=== PATIENT | female | born 1960 | race Hispanic/Latino ===

== ENCOUNTER 2017-09-12 05:57 | Emergency (ER) | payer BC ==
[2017-09-12 06:02] VITALS: BMI 38.0
[2017-09-12 06:12] VITALS: RESP 18; TEMP 98
[2017-09-12] MEDS ORDERED: Sodium Chloride 0.9% 1,000 ML IV STA (06:12)
--- NOTE | 2017-09-12 06:16 | ED PDOC ---
Arrival/HPI - General Chief Complaint: Back Pain Time Seen by Provider: 09/12/17 06:00 Historian: Patient - History of Present Illness Narrative History of Present Illness (Text): 09/12/17 06:13 57 yo female h/o HTN and Kidney Stones, presents to the ED c/o left flank pain since 3 am. Pain is achy in nature and radiates to her left upper to mid abdomen. Some nausea. No vomiting. No diarrhea. No fever, chills or bodyaches. No urinary symptoms such as dysuria, hematura, frequency or urgency. No trauma. Pain is not worsened with movement. No lightheadedness or dizziness. PMD: Dr. Craig. Past Medical History - Provider Review Nursing Documentation Reviewed: Yes - Infectious Disease Hx of Infectious Diseases: None - Tetanus Immunization Tetanus Immunization: Unknown - Cardiac Hx Hypertension: Yes - Neurological Hx Paralysis: No - Hematological/Oncological Hx Blood Transfusions: No Hx Blood Transfusion Reaction: No - Musculoskeletal/Rheumatological Hx Musculoskeletal Disorders: No - Psychiatric Hx Emotional Abuse: No Hx Physical Abuse: No Hx Substance Use: No - Anesthesia Hx Anesthesia Reactions: No Hx Malignant Hyperthermia: No - Suicidal Assessment Feels Threatened In Home Enviroment: No Family/Social History - Physician Review Nursing Documentation Reviewed: Yes Family/Social History: No Known Family HX Hx Alcohol Use: Yes (SOCIAL) Hx Substance Use: No Hx Substance Use Treatment: No Allergies/Home Meds Allergies/Adverse Reactions: Allergies Penicillins Allergy (Verified 09/12/17 06:02) ANAPHYLAXIS Home Medications: Home Meds Medication Instructions Recorded Confirmed Rosuvastatin Calcium [Crestor] 10 mg PO DAILY 06/05/12 09/12/17 Glyburide/Metformin HCl 1 tab PO DAILY 05/15/13 09/12/17 [Glyburide/Metformin 2.5 mg-500 mg] Nebivolol [Bystolic] 5 mg PO DAILY 03/30/17 09/12/17 Olmesartan Medoxomil [Benicar] 40 mg PO DAILY 03/30/17 09/12/17 Zolpidem Tartrate [Ambien Cr] 12.5 mg PO HS 03/30/17 09/12/17 Review of Systems - Physician Review All systems were reviewed & negative as marked: Yes - Review of Systems Constitutional: Normal Eyes: Normal ENT: Normal Respiratory: Normal Cardiovascular: Normal Gastrointestinal: Abdominal Pain, Nausea. absent: Constipation, Diarrhea, Vomiting Genitourinary Female: Normal Musculoskeletal: Back Pain. absent: Neck Pain Skin: Normal Neurological: Normal Endocrine: Normal Hemo/Lymphatic: Normal Psychiatric: Normal Physical Exam Vital Signs Reviewed: Yes Vital Signs Temp Pulse Resp BP Pulse Ox 09/12/17 06:11 98.0 F 77 18 166/87 H 97 Temperature: Afebrile Blood Pressure: Hypertensive Pulse: Regular Respiratory Rate: Normal Appearance: Positive for: Well-Appearing, Non-Toxic, Comfortable Pain Distress: None Mental Status: Positive for: Alert and Oriented X 3 - Systems Exam Head: Present: Atraumatic, Normocephalic Pupils: Present: PERRL Extroacular Muscles: Present: EOMI Conjunctiva: Present: Normal Mouth: Present: Moist Mucous Membranes Neck: Present: Normal Range of Motion Respiratory/Chest: Present: Clear to Auscultation, Good Air Exchange. No: Respiratory Distress, Accessory Muscle Use Cardiovascular: Present: Regular Rate and Rhythm, Normal S1, S2. No: Murmurs Abdomen: Present: Tenderness (LUQ tenderness), Guarding. No: Distention, Peritoneal Signs, Rebound Back: Present: CVA Tenderness (left) Upper Extremity: Present: Normal Inspection. No: Cyanosis, Edema Lower Extremity: Present: Normal Inspection. No: Edema Neurological: Present: GCS=15, CN II-XII Intact, Speech Normal Skin: Present: Warm, Dry, Normal Color. No: Rashes Psychiatric: Present: Alert, Oriented x 3, Normal Insight, Normal Concentration Medical Decision Making ED Course and Treatment: 09/12/17 06:17 57 yo female with left flank pain r/o Kidney Stone r/o Pancreatitis -- Labs -- Toradol IV, Tylenol -- NS IVF -- CT abd/pelv -- Reevaluate and disposition 09/12/17 7:00 Case signed out to Dr. Freedman to f/u CT, UA, labs, reevaluate and disposition. - Lab Interpretations Lab Results: 09/12/17 06:20 Lab Results 09/12/17 06:20: Sodium 142, Potassium 4.9, Chloride 103, Carbon Dioxide 25, Anion Gap 19, BUN 20, Creatinine 0.8, Est GFR ( Amer) > 60, Est GFR (Non- Af Amer) > 60, Random Glucose 203 H, Calcium 9.0, Magnesium 1.7, Total Bilirubin 0.4, AST 29, ALT 36, Alkaline Phosphatase 83, Total Protein 7.3, Albumin 4.3, Globulin 2.9, Albumin/Globulin Ratio 1.5, Lipase 210 - RAD Interpretation Radiology Orders: 09/12/17 06:12 ABD & PELVIS W/O PO OR IV CONT [CT] Stat - Medication Orders Current Medication Orders: Sodium Chloride (Sodium Chloride 0.9%) 1,000 mls @ 999 mls/hr IV .Q1H1M STA Stop: 09/12/17 07:12 Last Admin: 09/12/17 06:35 Dose: 999 mls/hr eMAR Start Stop Document 09/12/17 06:35 JOL (Rec: 09/12/17 06:35 [id number] Intravenous Solution Start Date 09/12/17 Start Time 06:35 End Date 09/12/17 End time 07:36 Total Infusion Time 61 Discontinued Medications Acetaminophen (Tylenol 325mg Tab) 975 mg PO STAT STA Stop: 09/12/17 06:13 Last Admin: 09/12/17 06:35 Dose: 975 mg [facility] Pain/Vitals Document 09/12/17 06:35 JOL (Rec: 09/12/17 06:36 [facility] [id number]) Pain Reassessment Is This A Pain ReAssessment? No Sleep Is patient sleeping during reassessment? No Presence of Pain Presence of Pain Yes Pain Scale Used Pain Scale Used Numeric Location Left, Right or Bilateral Bilateral Upper or Lower Lower Pain Location Body Site Back Ketorolac Tromethamine (Toradol) 30 mg IVP STAT STA Stop: 09/12/17 06:13 Last Admin: 09/12/17 06:35 Dose: 30 mg MAR Pain Assessment Document 09/12/17 06:35 JOL (Rec: 09/12/17 06:35 [facility] [id number]) Pain Reassessment Is this a pain reassessment? No Sleep Is patient sleeping during reassessment? No Presence of Pain Presence of Pain Yes Pain Scale Used Pain Scale Used Numeric Location Upper or Lower Lower Pain Location Body Site Back Description Intensity of Pain at present 8 Pain Behavior Restlessness Facial Grimacing Aggravating Factors ADL's Changing Position IVP Administration Document 09/12/17 06:35 JOL (Rec: 09/12/17 06:35 [id number]) Charges for Administration # of IVP Administrations 1 Ondansetron HCl (Zofran Inj) 4 mg IVP STAT STA Stop: 09/12/17 06:13 Last Admin: 09/12/17 06:36 Dose: 4 mg IVP Administration Document 09/12/17 06:36 JO (Rec: 09/12/17 06:36 [id number]) Charges for Administration # of IVP Administrations 1 Disposition/Present on Arrival - Present on Arrival Any Indicators Present on Arrival: No History of DVT/PE: No History of Uncontrolled Diabetes: No Urinary Catheter: No History of Decub. Ulcer: No History Surgical Site Infection Following: None - Disposition Have Diagnosis and Disposition been Completed?: No Diagnosis: Flank pain Disposition Time: :18 Condition: FAIR Forms: [employer] (Nigerian)
[2017-09-12 06:40] LABS: BASO # 0.03 K/mm3 (0.0-2.0); BASO % 0.5 % (0.0-3.0); EOS # 0.1 (0.0-0.7); EOS % 1.4 % (1.5-5.0); GRAN # 4.04 (1.4-6.5); GRAN % 60.9 % (50.0-68.0); LYMPH % 30.1 % (22.0-35.0); MEAN CELL VOLUME 74.7 fl (80.0-105.0); MEAN CORPUSCULAR HEMOGLOBIN 23.8 pg (25.0-35.0); MEAN CORPUSCULAR HGB CONC 31.8 g/dl (31.0-37.0); MEAN PLATELET VOLUME 9.6 fl (7.0-11.0); MONO # 0.5 (0.1-0.6); MONO % 7.1 % (1.0-6.0); RBC 5.05 10^6/uL (3.5-6.1); RED CELL DISTRIBUTION WIDTH 15.2 % (11.5-14.5); WHITE BLOOD COUNT 6.6 10^3/ul (4.5-11.0)
[2017-09-12 06:48] LABS: ALB/GLOB RATIO 1.5 (1.1-1.8); ALBUMIN 4.3 g/dL (3.0-4.8); ALT/SGPT 36 U/L (7-56); AST/SGOT 29 U/L (14-36); BLOOD UREA NITROGEN 20 mg/dL (7-21); GFR AFRICAN-AMERICAN > 60; GFR NON-AFRICAN AMERICAN > 60; LIPASE 210 U/L (23-300)
--- NOTE | 2017-09-12 07:14 | ED PDOC ---
Physical Exam Vital Signs Temp Pulse Resp BP Pulse Ox 09/12/17 06:11 98.0 F 77 18 166/87 H 97 Medical Decision Making ED Course and Treatment: 09/12/17 07:11 Patient endorsed to me by Dr. Chow. Pending CT results. CT Abdomen and Pelvis Without Intravenous Contrast: Creator : MIGUEL RUIZ IMPRESSION: 1. There is left perinephric inflammatory change with moderate left hydroureteronephrosis and a 3-4 mm left proximal ureteral stone seen on image 86 series 3 representing acute obstructive uropathy. No UTI. Discharged home, f/u Dr. Guevara, return to ED for worsening pain, vomiting, fever , or any other problem. - Lab Interpretations Lab Results: 09/12/17 06:20 09/12/17 06:20 Lab Results 09/12/17 06:20: Sodium 142, Potassium 4.9, Chloride 103, Carbon Dioxide 25, Anion Gap 19, BUN 20, Creatinine 0.8, Est GFR ( Amer) > 60, Est GFR (Non- Af Amer) > 60, Random Glucose 203 H, Calcium 9.0, Magnesium 1.7, Total Bilirubin 0.4, AST 29, ALT 36, Alkaline Phosphatase 83, Total Protein 7.3, Albumin 4.3, Globulin 2.9, Albumin/Globulin Ratio 1.5, Lipase 210 09/12/17 06:20: WBC 6.6, RBC 5.05, Hgb 12.0, Hct 37.7, MCV 74.7 L, MCH 23.8 L, MCHC 31.8, RDW 15.2 H, Plt Count 302, MPV 9.6, Gran % 60.9, Lymph % (Auto) 30.1 , [place] % (Auto) 7.1 H, Eos % (Auto) 1.4 L, Baso % (Auto) 0.5, Gran # 4.04, Lymph # (Auto) 2.0, [place] # (Auto) 0.5, Eos # (Auto) 0.1, Baso # (Auto) 0.03 09/12/17 06:12: Urine Color Yellow, Urine Appearance Sl cloudy, Urine pH 5.5, Ur Specific [place] >= 1.030, Urine Protein Trace H, Urine Glucose (UA) Negative , Urine Ketones Negative, Urine Blood Large H, Urine Nitrate Negative, Urine Bilirubin Negative, Urine Urobilinogen 0.2, Ur Leukocyte Esterase Negative, Urine RBC 20 - 25, Urine WBC 1 - 3, Ur Epithelial Cells Many, Amorphous Sediment Few, Urine Bacteria Many, Fine Granular Casts 0 - 2, Urine Other Uyeast - RAD Interpretation Radiology Orders: 09/12/17 06:12 ABD & PELVIS W/O PO OR IV CONT [CT] Stat - Medication Orders Current Medication Orders: Discontinued Medications Acetaminophen (Tylenol 325mg Tab) 975 mg PO STAT STA Stop: 09/12/17 06:13 Last Admin: 09/12/17 06:35 Dose: 975 mg MAR Pain/Vitals Document 09/12/17 06:35 JOL (Rec: 09/12/17 06:36 [id number] Pain Reassessment Is This A Pain ReAssessment? No Sleep Is patient sleeping during reassessment? No Presence of Pain Presence of Pain Yes Pain Scale Used Pain Scale Used Numeric Location Left, Right or Bilateral Bilateral Upper or Lower Lower Pain Location Body Site Back Sodium Chloride (Sodium Chloride 0.9%) 1,000 mls @ 999 mls/hr IV .Q1H1M STA Stop: 09/12/17 07:12 Last Admin: 09/12/17 06:35 Dose: 999 mls/hr eMAR Start Stop Document 09/12/17 06:35 JOL (Rec: 09/12/17 06:35 [id number]) Intravenous Solution Start Date 09/12/17 Start Time 06:35 End Date 09/12/17 End time 07:36 Total Infusion Time 61 Ketorolac Tromethamine (Toradol) 30 mg IVP STAT STA Stop: 09/12/17 06:13 Last Admin: 09/12/17 06:35 Dose: 30 mg MAR Pain Assessment Document 09/12/17 06:35 JOL (Rec: 09/12/17 06:35 [id number]) Pain Reassessment Is this a pain reassessment? No Sleep Is patient sleeping during reassessment? No Presence of Pain Presence of Pain Yes Pain Scale Used Pain Scale Used Numeric Location Upper or Lower Lower Pain Location Body Site Back Description Intensity of Pain at present 8 Pain Behavior Restlessness Facial Grimacing Aggravating Factors ADL's Changing Position IVP Administration Document 09/12/17 06:35 JOL (Rec: 09/12/17 06:35 [facility]-[id number]) Charges for Administration # of IVP Administrations 1 Ondansetron HCl (Zofran Inj) 4 mg IVP STAT STA Stop: 09/12/17 06:13 Last Admin: 09/12/17 06:36 Dose: 4 mg IVP Administration Document 09/12/17 06:36 JOL (Rec: 09/12/17 06:36 [id number]) Charges for Administration # of IVP Administrations 1 Tamsulosin HCl (Flomax) 0.4 mg PO STAT STA Stop: 09/12/17 07:52 Last Admin: 09/12/17 08:00 Dose: 0.4 mg - Scribe Statement The provider has reviewed the documentation as recorded by the Frantzibe Justin Lazo Provider Scribe Attestation: All medical record entries made by the Scribe were at my direction and personally dictated by me. I have reviewed the chart and agree that the record accurately reflects my personal performance of the history, physical exam, medical decision making, and the department course for this patient. I have also personally directed, reviewed, and agree with the discharge instructions and disposition. Disposition/Present on Arrival - Present on Arrival Any Indicators Present on Arrival: No History of DVT/PE: No History of Uncontrolled Diabetes: No Urinary Catheter: No History of Decub. Ulcer: No History Surgical Site Infection Following: None - Disposition Have Diagnosis and Disposition been Completed?: Yes Diagnosis: Nephrolithiasis Disposition Time: 08:15 Patient Plan: Discharge Patient Problems: Current Active Problems Problem Status Onset Flank pain Acute Condition: STABLE Discharge Instructions (ExitCare): Kidney Stones in Adults Prescriptions: Acetaminophen [Tylenol 325mg tab] 2 tab PO Q4H #30 tab Famotidine [Pepcid] 1 tab PO BID #14 tab Ibuprofen [Motrin] 600 mg PO Q6 #25 tab Ondansetron ODT [Zofran ODT] 4 mg PO Q8 #12 odt Tamsulosin [Flomax] 0.4 mg PO DAILY #5 cap Referrals: Piero Craig MD [Primary Care Provider] - Follow up with primary Richard Guevara MD [Staff Provider] - Follow up with primary Forms: [employer] (Vietnamese)
--- NOTE | 2017-09-12 07:49 | CT ---
EXAM: CT Abdomen and Pelvis Without Intravenous Contrast CLINICAL HISTORY: 57 years old, female; Signs and symptoms; Other: Left flank pain; Prior surgery; Surgery type: Gastric bypass; Additional info: Left flank pain R/O kidney stone TECHNIQUE: Axial computed tomography images of the abdomen and pelvis without intravenous contrast. All CT scans at this facility use one or more dose reduction techniques, viz.: automated exposure control; ma/kV adjustment per patient size (including targeted exams where dose is matched to indication; i.e. head); or iterative reconstruction technique. 459 images are submitted. Axial images are submitted in soft tissue and lung windows. Coronal reformatted images were created and reviewed. Axial reformatted images were created and reviewed. COMPARISON: CT - ABD PELVIS PO IV CONTRAST 2017-06-11 10:03 FINDINGS: Limitations: Absence of IV contrast decreases sensitivity for detecting vascular and visceral injury and abnormality. Lung bases: There is bibasilar atelectasis. ABDOMEN: Liver: Unremarkable. Gallbladder and bile ducts: Cholecystectomy. Pancreas: Unremarkable. No ductal dilation. Spleen: Unremarkable. No splenomegaly. Adrenals: Unremarkable. No mass. Kidneys and ureters: There is left perinephric inflammatory change with moderate left hydroureteronephrosis and a 3-4 mm left proximal ureteral stone seen on image 86 series 3 representing acute obstructive uropathy. Faint densities in the medullary regions of both kidneys are somewhat nonspecific, perhaps reflecting dense solute, Doe's plaque, tiny calcifications, or other debris. Nonobstructive punctate left renal stone. Stomach and bowel: There is evidence of gastric surgery with gastrojejunal bypass. Diverticulosis. There are nonspecific fluid filled small bowel loops. These findings can represent ileus versus enteritis versus slow transit versus peristalsis. No obstruction. PELVIS: Appendix: Normal appendix which is suboptimally seen. Bladder: Partially decompressed bladder with bladder wall thickening. Correlation with urinalysis is recommended only if clinical cystitis is suspected. Reproductive: Hysterectomy. ABDOMEN and PELVIS: Intraperitoneal space: Unremarkable. No free air. No significant fluid collection. Bones/joints: No acute fracture. No dislocation. Soft tissues: There is a fat-containing umbilical hernia. Vasculature: Pelvic phleboliths. The aorta demonstrates calcified plaque and is mildly ectatic but normal in caliber. Lymph nodes: Unremarkable. No enlarged lymph nodes. IMPRESSION: 1. There is left perinephric inflammatory change with moderate left hydroureteronephrosis and a 3-4 mm left proximal ureteral stone seen on image 86 series 3 representing acute obstructive uropathy.
[2017-09-12 07:56] LABS: PH,URINE 5.5 (4.7-8.0); URINE BILIRUBIN NEGATIVE (NEGATIVE); URINE BLOOD LARGE (NEGATIVE); URINE GLUCOSE (UA) NEGATIVE (NEGATIVE); URINE LEUKOCYTE ESTERASE NEGATIVE Leu/uL (NEGATIVE); URINE PROTEIN TRACE mg/dL (<30 mg/dL); URINE UROBILINOGEN 0.2 E.U./dL (<1 E.U./dL)
[2017-09-12 07:58] LABS: URINE APPEARANCE SL CLOUDY (CLEAR); URINE COLOR YELLOW (YELLOW)
[2017-09-12 08:12] LABS: URINE RBC 20 - 25 /hpf (0-2)
[2017-09-12 08:13] LABS: URINE AMORPHOUS SEDIMENT FEW; URINE BACTERIA MANY (NEG); URINE EPITHELIAL CELLS MANY /hpf (0-5); URINE FINE GRANULAR CAST 0 - 2 /hpf (0-2)
[2017-09-12 08:30] VITALS: BP 128/70; PULSE 72; O2SAT 98
== END 2017-09-12 08:29 | disposition home or self-care (01) ==
LOC: ED 05:57
DX: R10.9 Unspecified abdominal pain (principal); N20.0 Calculus of kidney
CPT/HCPCS: 74176; 80053; 81001; 83690; 83735; 85025; 96361; 96374; 96375; 99284; J1885; J2405; J7030

== ENCOUNTER 2018-06-25 04:26 | Observation (INO) | payer BC ==
[2018-06-25 04:26] VITALS: BMI 38.0
[2018-06-25] MEDS ORDERED: Morphine 2 mg/ml ISec IVP STA ×2 (04:43→06:13)
[2018-06-25] MEDS ORDERED: Sodium Chloride 0.9% 1,000 ML IV STA ×2 (04:43→06:21)
--- NOTE | 2018-06-25 04:45 | ED PDOC ---
Arrival/HPI - General Chief Complaint: Back Pain Time Seen by Provider: 06/25/18 04:31 Historian: Patient - History of Present Illness Narrative History of Present Illness (Text): 06/25/18 04:42 58 year old female, whose past medical history includes kidney stones, diabetes mellitus, and hypertension, presents to the emergency department with complaints of sudden right flank pain since earlier this morning. Patient notes associated nausea and states these symptoms feel similar to previous kidney stones in the past. Patient denies any fevers, chills, headache, dizziness, chest pain, shortness of breath, dyspnea on exertion, cough, abdominal pain, vomiting, diarrhea, neck pain, or any other complaint. Time/Duration: 24 hours Symptom Onset: Gradual Symptom Course: Unchanged Activities at Onset: Light Context: Home Past Medical History - Provider Review Nursing Documentation Reviewed: Yes - Infectious Disease Hx of Infectious Diseases: None - Tetanus Immunization Tetanus Immunization: Unknown - Reproductive Menopause: No - Cardiac Hx Hypertension: Yes - Pulmonary Hx Respiratory Disorders: No - Neurological Hx Paralysis: No - HEENT Hx HEENT Disorder: No - Renal Hx Renal Disorder: Yes Hx Kidney Stones: Yes - Endocrine/Metabolic Hx Endocrine Disorders: Yes Hx Diabetes Mellitus Type 2: Yes - Hematological/Oncological Hx Blood Transfusions: No Hx Blood Transfusion Reaction: No - Musculoskeletal/Rheumatological Hx Musculoskeletal Disorders: No - Psychiatric Hx Emotional Abuse: No Hx Physical Abuse: No Hx Substance Use: No - Anesthesia Hx Anesthesia Reactions: No Hx Malignant Hyperthermia: No - Suicidal Assessment Feels Threatened In Home Enviroment: No Family/Social History - Physician Review Nursing Documentation Reviewed: Yes Family/Social History: No Known Family HX Smoking Status: Never Smoked Hx Alcohol Use: Yes (SOCIAL) Hx Substance Use: No Hx Substance Use Treatment: No Allergies/Home Meds Allergies/Adverse Reactions: Allergies Penicillins Allergy (Verified 06/25/18 04:32) ANAPHYLAXIS Home Medications: Home Meds Medication Instructions Recorded Confirmed Rosuvastatin Calcium [Crestor] 10 mg PO DAILY 06/05/12 06/25/18 Nebivolol [Bystolic] 5 mg PO DAILY 03/30/17 06/25/18 Olmesartan Medoxomil [Benicar] 40 mg PO DAILY 03/30/17 06/25/18 glyBURIDE [Micronase] 5 mg PO BID 06/25/18 06/25/18 Review of Systems - Physician Review All systems were reviewed & negative as marked: Yes - Review of Systems Constitutional: absent: Fevers Respiratory: absent: SOB Cardiovascular: absent: Chest Pain Gastrointestinal: Nausea, Other (right flank pain). absent: Abdominal Pain, Diarrhea, Vomiting Musculoskeletal: absent: Neck Pain Neurological: absent: Headache, Dizziness Physical Exam Vital Signs Reviewed: Yes Vital Signs Temp Pulse Resp BP Pulse Ox 06/25/18 04:35 98.2 F 91 H 18 173/93 H 94 L Temperature: Afebrile Blood Pressure: Hypertensive Pulse: Tachycardic Respiratory Rate: Normal Appearance: Positive for: Well-Appearing, Non-Toxic, Comfortable Pain Distress: Mild Mental Status: Positive for: Alert and Oriented X 3 - Systems Exam Head: Present: Atraumatic, Normocephalic Pupils: Present: PERRL Extroacular Muscles: Present: EOMI Conjunctiva: Present: Normal Mouth: Present: Moist Mucous Membranes Neck: Present: Normal Range of Motion Respiratory/Chest: Present: Clear to Auscultation, Good Air Exchange. No: Respiratory Distress, Accessory Muscle Use Cardiovascular: Present: Regular Rate and Rhythm, Normal S1, S2. No: Murmurs Abdomen: No: Tenderness, Distention, Peritoneal Signs Back: Present: Other (right CVAT tenderness) Upper Extremity: Present: Normal Inspection. No: Cyanosis, Edema Lower Extremity: Present: Normal Inspection. No: Edema Neurological: Present: GCS=15, CN II-XII Intact, Speech Normal Skin: Present: Warm, Dry, Normal Color. No: Rashes Psychiatric: Present: Alert, Oriented x 3, Normal Insight, Normal Concentration Medical Decision Making ED Course and Treatment: 06/25/18 04:46 Impression: 58 year old female who presents to the emergency department complaining of right sided flank pain. Plan: -- CT of abdomen and pelvis -- Labs -- Morphine -- IV fluids -- Toradol -- Zofran -- Urinalysis -- Reassess and disposition Prior Visits: Notes and results from previous visits were reviewed. Progress Notes: 06/25/18 06:25 Patient with intractable pain ,large calculus requiring further treatment in hospital.Case was endorsed to administrative medical director and house physician. - Lab Interpretations I have reviewed the lab results: Yes - RAD Interpretation Tire Setter: Radiologist - Scribe Statement The provider has reviewed the documentation as recorded by the Mary Valero Provider Scribe Attestation: All medical record entries made by the Scribe were at my direction and personally dictated by me. I have reviewed the chart and agree that the record accurately reflects my personal performance of the history, physical exam, medical decision making, and the department course for this patient. I have also personally directed, reviewed, and agree with the discharge instructions and disposition. Disposition/Present on Arrival - Present on Arrival Any Indicators Present on Arrival: No History of DVT/PE: No History of Uncontrolled Diabetes: No Urinary Catheter: No History of Decub. Ulcer: No History Surgical Site Infection Following: None - Disposition Have Diagnosis and Disposition been Completed?: Yes Diagnosis: Renal colic Disposition: HOSPITALIZED Disposition Time: 06:33 Condition: STABLE Forms: [employer] (U[place]ayan)
[2018-06-25 04:56] LABS: HEMOGLOBIN 11.6 g/dL (12.0-16.0); MEAN CELL VOLUME 73.9 fl (80.0-105.0); MEAN CORPUSCULAR HEMOGLOBIN 22.8 pg (25.0-35.0); MEAN CORPUSCULAR HGB CONC 30.9 g/dl (31.0-37.0); MEAN PLATELET VOLUME 9.1 fl (7.0-11.0); RBC 5.09 10^6/uL (3.5-6.1); RED CELL DISTRIBUTION WIDTH 17.2 % (11.5-14.5); WHITE BLOOD COUNT 9.4 10^3/uL (4.5-11.0)
[2018-06-25 05:19] LABS: ALB/GLOB RATIO 1.4 (1.1-1.8); ALBUMIN 4.4 g/dL (3.0-4.8); ALT/SGPT 22 U/L (7-56); AST/SGOT 28 U/L (14-36); BLOOD UREA NITROGEN 21 mg/dL (7-21); CALCIUM 9.3 mg/dL (8.4-10.5); GFR NON-AFRICAN AMERICAN 57
[2018-06-25 06:15] LABS: URINE BILIRUBIN NEGATIVE (NEGATIVE); URINE BLOOD TRACE-LYSED (NEGATIVE); URINE COLOR YELLOW (YELLOW); URINE GLUCOSE (UA) >=1000 mg/dL (NEGATIVE); URINE LEUKOCYTE ESTERASE NEGATIVE Leu/uL (NEGATIVE); URINE PROTEIN NEGATIVE mg/dL (<30 mg/dL); URINE UROBILINOGEN 0.2 E.U./dL (<1 E.U./dL)
[2018-06-25 06:16] LABS: URINE APPEARANCE CLEAR (CLEAR)
[2018-06-25 06:37] LABS: URINE BACTERIA OCC /hpf; URINE RBC 0 - 2 /hpf (0-2)
--- NOTE | 2018-06-25 07:04 | CP.PCM.HP ---
<NelyRemedios - Last Filed: 06/25/18 14:20> History of Present Illness - History of Present Illness History of Present Illness: PGY-[address] Recinos Ms Obrien, 58F, with PMHx Gastric bypass 10 years ago and gastric lap-band September 2017, recurrent kidney stones x 3 (1 spontanous passage in September 2017, 2 required extracorporeal shockwave lithotripsy prior), DM, HTN, PCN allergy c/o R flank pain with nausea. Pt had intermittent R flank recently but last night it was worsen to severe and new-onset vomiting. She vomited 3 times since, non-bloody, non-billous. No change in eating habbit, no urinary frequency, no fever/chills. No recent travels. At baseline, pt walk 15-20 mins a day without chest pain or SOB. She is able to climb 1-2 flights of stairs w/o problem In the ED, VS stables with BP 170/90s due to pain. No leukocytosis. CMP normal except glucose 300. U/A shows WBC 1-3 no alo est, no nitrate CT scan showed obstructing stone of R ureteropelvic junction, 9.6 x 7mm. morphine helped but briefly. She requires morphine 2x2 and zofran. 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 denies drink, smoke, drug All Penicillin Med glyburide 5 bid, crestor 10, olmesartan 40, bystolic 5 PMD = Dr Craig Urol = Dr Guevara Present on Admission - Present on Admission Any Indicators Present on Admission: No Past Patient History - Infectious Disease Hx of Infectious Diseases: None - Tetanus Immunizations Tetanus Immunization: Unknown - Past Social History Smoking Status: Never Smoked - CARDIAC Hx Hypertension: Yes - PULMONARY Hx Respiratory Disorders: No - NEUROLOGICAL Hx Paralysis: No - HEENT Hx HEENT Problems: No - RENAL Hx Chronic Kidney Disease: Yes Hx Kidney Stones: Yes - ENDOCRINE/METABOLIC Hx Endocrine Disorders: Yes Hx Diabetes Mellitus Type 2: Yes - HEMATOLOGICAL/ONCOLOGICAL Hx Blood Transfusions: No Hx Blood Transfusion Reaction: No - MUSCULOSKELETAL/RHEUMATOLOGICAL Hx Musculoskeletal Disorders: No - PSYCHIATRIC Hx Emotional Abuse: No Hx Physical Abuse: No Hx Substance Use: No - SURGICAL HISTORY Hx Surgeries: Yes - ANESTHESIA Hx Anesthesia Reactions: No Hx Malignant Hyperthermia: No Meds Allergies/Adverse Reactions: Allergies Allergy/AdvReac Type Severity Reaction Status Date / Time Penicillins Allergy ANAPHYLAXIS Verified 06/25/18 04:32 Physical Exam - Constitutional Appears: No Acute Distress - Head Exam Head Exam: ATRAUMATIC, NORMAL INSPECTION, NORMOCEPHALIC - Eye Exam Eye Exam: EOMI, Normal appearance, PERRL. absent: Scleral icterus Pupil Exam: NORMAL ACCOMODATION - ENT Exam ENT Exam: Mucous Membranes Moist - Neck Exam Neck exam: Positive for: Normal Inspection - Respiratory Exam Respiratory Exam: Clear to Auscultation Bilateral, NORMAL BREATHING PATTERN. absent: Rales, Rhonchi, Wheezes - Cardiovascular Exam Cardiovascular Exam: REGULAR RHYTHM, +S1, +S2 - GI/Abdominal Exam GI & Abdominal Exam: Normal Bowel Sounds, Soft. absent: Distended, Firm, Guarding, Rigid, Tenderness Additional comments: (+) suprapubic tenderness - Back Exam Back exam: CVA tenderness (R). absent: paraspinal tenderness, rash noted - Neurological Exam Neurological exam: Alert, CN II-XII Intact, Oriented x3 - Psychiatric Exam Psychiatric exam: Normal Affect, Normal Mood - Skin Skin Exam: Dry, Warm Results - Vital Signs Recent Vital Signs: Last Vital Signs Temp 98.2 F 06/25/18 04:35 Pulse 93 H 06/25/18 06:14 Resp 18 06/25/18 06:14 BP 163/82 H 06/25/18 06:14 Pulse Ox 98 06/25/18 06:14 - Labs Result Diagrams: 06/25/18 04:45 06/25/18 04:45 Labs: Laboratory Results - last 24 hr 06/25/18 06/25/18 06/25/18 04:45 04:45 06:05 WBC 9.4 RBC 5.09 Hgb 11.6 L Hct 37.6 MCV 73.9 L MCH 22.8 L MCHC 30.9 L RDW 17.2 H Plt Count 401 MPV 9.1 Sodium 138 Potassium 4.5 Chloride 104 Carbon Dioxide 22 Anion Gap 17 BUN 21 Creatinine 1.0 Est GFR ( Amer) > 60 Est GFR (Non-Af Amer) 57 Random Glucose 330 H* D Calcium 9.3 Total Bilirubin 0.3 AST 28 ALT 22 Alkaline Phosphatase 100 Total Protein 7.7 Albumin 4.4 Globulin 3.3 Albumin/Globulin Ratio 1.4 Urine Color Yellow Urine Appearance Clear Urine pH 6.0 Ur Specific [place] 1.025 Urine Protein Negative Urine Glucose (UA) >=1000 Urine Ketones 15 H Urine Blood Trace-lysed H Urine Nitrate Negative Urine Bilirubin Negative Urine Urobilinogen 0.2 Ur Leukocyte Esterase Negative Urine RBC 0 - 2 Urine WBC 1 - 3 Ur Epithelial Cells 1 - 3 Urine Bacteria Occ Assessment & Plan - Assessment and Plan (Free Text) Plan: Ms Obrien, 58F, with PMHx Gastric bypass 10 years ago and gastric lap-band September 2017, obesity, recurrent kidney stones x 3 (1 spontanous passage in September 2017, 2 required extracorporeal shockwave lithotripsy prior), DM, HTN, PCN allergy c/o R flank pain with nausea. CT scan showed obstructing stone of R ureteropelvic junction, 9.6 x 7mm with moderate R hydronephrosis. R ureteropelvic junction, 9.6 x 7mm Hx recurrent kidney stones x 3 - zofran prn, morphine 1q3 prn - Hold antibiotics pending clinical course - EKG/CXR - NPO, NS@100, strain urine moderate R hydronephrosis - chronic vs acute?? 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 Should follow up outpatient PVX-SCD. Low risk for GI stress ulcer Dispo planning: May be d.c in 24-48 hrs s/r/d/w Dr Recinos <Shauna Recinos - Last Filed: 06/25/18 16:41> Results - Vital Signs Recent Vital Signs: Last Vital Signs Temp 98.2 F 06/25/18 14:00 Pulse 84 06/25/18 14:00 Resp 18 06/25/18 14:00 BP 125/78 06/25/18 14:00 Pulse Ox 95 06/25/18 14:00 - Labs Result Diagrams: 06/25/18 04:45 06/25/18 04:45 Labs: Laboratory Results - last 24 hr 06/25/18 06/25/18 06/25/18 04:45 04:45 06:05 WBC 9.4 RBC 5.09 Hgb 11.6 L Hct 37.6 MCV 73.9 L MCH 22.8 L MCHC 30.9 L RDW 17.2 H Plt Count 401 MPV 9.1 Sodium 138 Potassium 4.5 Chloride 104 Carbon Dioxide 22 Anion Gap 17 BUN 21 Creatinine 1.0 Est GFR ( Amer) > 60 Est GFR (Non-Af Amer) 57 POC Glucose (mg/dL) Random Glucose 330 H* D Hemoglobin A1c Calcium 9.3 Total Bilirubin 0.3 AST 28 ALT 22 Alkaline Phosphatase 100 Total Protein 7.7 Albumin 4.4 Globulin 3.3 Albumin/Globulin Ratio 1.4 Urine Color Yellow Urine Appearance Clear Urine pH 6.0 Ur Specific [place] 1.025 Urine Protein Negative Urine Glucose (UA) >=1000 Urine Ketones 15 H Urine Blood Trace-lysed H Urine Nitrate Negative Urine Bilirubin Negative Urine Urobilinogen 0.2 Ur Leukocyte Esterase Negative Urine RBC 0 - 2 Urine WBC 1 - 3 Ur Epithelial Cells 1 - 3 Urine Bacteria Occ 06/25/18 06/25/18 06/25/18 08:00 11:40 16:22 WBC RBC Hgb Hct MCV MCH MCHC RDW Plt Count MPV Sodium Potassium Chloride Carbon Dioxide Anion Gap BUN Creatinine Est GFR ( Amer) Est GFR (Non-Af Amer) POC Glucose (mg/dL) 153 H 130 H Random Glucose Hemoglobin A1c 8.6 H Calcium Total Bilirubin AST ALT Alkaline Phosphatase Total Protein Albumin Globulin Albumin/Globulin Ratio Urine Color Urine Appearance Urine pH Ur Specific [place] Urine Protein Urine Glucose (UA) Urine Ketones Urine Blood Urine Nitrate Urine Bilirubin Urine Urobilinogen Ur Leukocyte Esterase Urine RBC Urine WBC Ur Epithelial Cells Urine Bacteria Attending/Attestation - Attestation I have personally seen and examined this patient.: Yes I have fully participated in the care of the patient.: Yes I have reviewed all pertinent clinical information: Yes Notes (Text): 06/25/18 16:37 58 year old female with past medical history of diabetes, hypertension and kidney stones who presents with complaint of right flank pain; found to have severe right obstructive uropathy with 10 x 7 mm stone at right UP junction with moderate right hydronephrosis on CT scan. Continue with NPO, IVF and analgesics. Urology evaluation is requested. Shauna Recinos MD Hospitalist.
[2018-06-25] MEDS ORDERED: Dextrose 50% SYRINGE Inj (50 ml) IV PRN (07:50)
--- NOTE | 2018-06-25 09:35 | RAD ---
Date of service: 06/25/2018 HISTORY: Preoperative examination COMPARISON: 05/15/2013. TECHNIQUE: Chest PA and lateral FINDINGS: LINES AND TUBES: None. LUNG AND PLEURA: The lungs are well inflated and clear. No pleural effusion or pneumothorax. HEART AND MEDIASTINUM: The heart is not enlarged. There are aortic atherosclerotic calcifications present. The hilar and mediastinal contours are within normal limits. SKELETAL STRUCTURES: The bony structures are within normal limits for the patient's age. VISUALIZED UPPER ABDOMEN: Normal. OTHER FINDINGS: None. IMPRESSION: No active pulmonary disease.
--- NOTE | 2018-06-25 10:05 | CT ---
Date of service: 06/25/2018 PROCEDURE: CT Abdomen and Pelvis without intravenous contrast HISTORY: Right flank pain COMPARISON: 09/12/2017 TECHNIQUE: CT scan of the abdomen and pelvis was performed without administration of intravenous contrast. Oral contrast was not administered. Coronal and sagittal reformatted images were obtained. Radiation dose: Total exam DLP = 1089.87 mGy-cm. This CT exam was performed using one or more of the following dose reduction techniques: Automated exposure control, adjustment of the mA and/or kV according to patient size, and/or use of iterative reconstruction technique. FINDINGS: LOWER THORAX: The visualized lungs are clear. LIVER: Normal in size. No gross lesion or ductal dilatation. GALLBLADDER AND BILE DUCTS: Surgically absent. PANCREAS: Normal in size. No gross lesion or ductal dilatation. SPLEEN: Normal in size. ADRENALS: Normal in size. No discrete nodule. KIDNEYS AND URETERS: There is a 10 x 7 mm stone at the right UP jnction, moderate right hydronephrosis and severe perinephric inflammatory changes with perinephric fluid. There are punctate nonobstructing stones in both kidneys. The left kidney is normal in size. No left hydronephrosis. VASCULATURE: Normal in caliber. No aortic aneurysm. No aortic atherosclerotic calcification or mural plaque present. BOWEL: Evaluation of the bowel is limited in the absence of oral contrast. The small bowel loops are normal in caliber. Scattered colonic diverticulosis without CT evidence for acute diverticulitis. No bowel dilatation or wall thickening. No bowel obstruction. APPENDIX: Normal appendix. PERITONEUM: No free fluid. No free air. LYMPH NODES: No enlarged lymph nodes. BLADDER: Well distended and normal in appearance. REPRODUCTIVE: The uterus is surgically absent. BONES: No acute fracture. Within normal limits for the patient's age. OTHER FINDINGS: None. IMPRESSION: 1. Severe right obstructive uropathy resulting from a 10 x 7 mm stone at the right UP junction. 2. Punctate nonobstructing stones in both kidneys. A preliminary report was provided by [facility].
[2018-06-25] MEDS: Sodium Chloride 0.9% 1,000 ML IV SCH ×2 (10:50→19:29)
[2018-06-25] MEDS: Morphine 2 mg/ml ISec IVP PRN ×2 (12:02→19:56)
[2018-06-25] MEDS: Insulin Reg-LOW-Coverage SC SCH ×3 (12:39→22:02)
--- NOTE | 2018-06-25 17:19 | CARD ---
APPROVED REPORT Date of service: 06/25/2018 EKG Measurement Heart [id number] MD [id number] <Conclusion> Normal sinus rhythm Low voltage QRS Septal infarct, age undetermined Abnormal ECG
[2018-06-26] MEDS: Sodium Chloride 0.9% 1,000 ML IV SCH (04:55)
[2018-06-26] MEDS: Morphine 2 mg/ml ISec IVP PRN (05:56)
[2018-06-26] MEDS: Insulin Reg-LOW-Coverage SC SCH ×4 (08:27→22:06)
[2018-06-26 11:01] LABS: BASO # 0.03 K/mm3 (0.0-2.0); BASO % 0.5 % (0.0-3.0); EOS # 0.1 (0.0-0.7); EOS % 1.1 % (1.5-5.0); LYMPH # 1.5 (1.2-3.4); LYMPH % 25.9 % (22.0-35.0); MEAN CELL VOLUME 75.4 fl (80.0-105.0); MEAN CORPUSCULAR HEMOGLOBIN 22.4 pg (25.0-35.0); MEAN CORPUSCULAR HGB CONC 29.7 g/dl (31.0-37.0); MONO # 0.4 (0.1-0.6); MONO % 6.6 % (1.0-6.0); RBC 4.06 10^6/uL (3.5-6.1); RED CELL DISTRIBUTION WIDTH 17.4 % (11.5-14.5); WHITE BLOOD COUNT 5.6 10^3/uL (4.5-11.0)
[2018-06-26 11:06] LABS: HEMOGLOBIN 9.1 g/dL (12.0-16.0)
[2018-06-26 11:15] LABS: ALB/GLOB RATIO 1.3 (1.1-1.8); ALBUMIN 3.4 g/dL (3.0-4.8); ALT/SGPT 18 U/L (7-56); AST/SGOT 17 U/L (14-36); BLOOD UREA NITROGEN 16 mg/dL (7-21); CALCIUM 8.4 mg/dL (8.4-10.5); GFR NON-AFRICAN AMERICAN > 60
[2018-06-26] MEDS ORDERED: Propofol 10 mg/ml Inj (20 ML) ONE (11:22)
[2018-06-26] MEDS ORDERED: Midazolam 2 MG/2 ML VIAL ONE (11:23)
[2018-06-26] MEDS ORDERED: Iohexol 240 (50 ml) ONE (11:42)
[2018-06-26] MEDS ORDERED: cefTRIAXone (Rocephin) 1 gm Inj ONE (11:44)
[2018-06-26] MEDS ORDERED: Gentamicin 80 mg in 0.9% NS 80 MG/100 ML BAG IVPB ONE (11:57)
--- NOTE | 2018-06-26 14:20 | RAD ---
Date of service: 06/26/2018 PROCEDURE: Fluoroscopy up to 1 hr. HISTORY: RETROGRADE PYELOGRAM / STENT INSERTION (RIGHT) COMPARISON: None TECHNIQUE: Standard protocol for this study/examination. FINDINGS: Total fluoroscopic time (continuous mode) utilized during the procedure 28.0 seconds. Total exam DLP: 13.20 (mGy). IMPRESSION: Less than 1 hr fluoroscopic assistance provided during performance of the procedure.
[2018-06-26] MEDS ORDERED: Oxycodone/Acetaminophen 10/325 mg Tab PO PRN (15:55)
--- NOTE | 2018-06-26 16:37 | CP.PCM.PN ---
<Julisa Kraft - Last Filed: 06/26/18 16:34> Subjective - Date & Time of Evaluation Date of Evaluation: 06/26/18 Time of Evaluation: 16:34 - Subjective Subjective: Julisa Kraft, PGY1 Medicine Progress Note: Pt was seen and examined this PM at bedside. Pt is noted to be having hematuria after stent placement, per urology it is to be expected. Pt states that her pain is improved, and the pain medication is controlling the pain well. Pt had no acute overnight events. Objective - Vital Signs/Intake and Output Vital Signs (last 24 hours): Temp Pulse Resp BP Pulse Ox 98.5 F 78 14 133/68 97 06/26/18 13:16 06/26/18 13:16 06/26/18 13:16 06/26/18 13:16 06/26/18 13:16 Intake and Output: 06/26/18 06/26/18 06:59 18:59 Intake Total 300 100 Output Total 800 Balance -500 100 - Medications Medications: Current Medications Acetaminophen (Tylenol 325mg Tab) 650 mg PO Q4H PRN PRN Reason: Pain, moderate (4-7) Atorvastatin Calcium (Lipitor) 40 mg PO DAILY [facility] Last Admin: 06/26/18 10:27 Dose: Not Given Dextrose (Dextrose 50% Inj) 0 ml IV STAT PRN; Protocol PRN Reason: Hypoglycemia Protocol Docusate Sodium (Colace) 100 mg PO BID [facility] Last Admin: 06/26/18 10:27 Dose: Not Given Sodium Chloride (Sodium Chloride 0.9%) 1,000 mls @ 100 mls/hr IV .Q10H [facility] Last Admin: 06/26/18 04:55 Dose: 100 mls/hr Dextrose (Dextrose 5% In Water 1000 Ml) 1,000 mls @ 0 mls/hr IV .Q0M PRN; Protocol PRN Reason: Hypoglycemia Protocol Insulin Human Regular (Humulin R Low) 0 units SC ACHS [facility]; Protocol Last Admin: 06/26/18 12:29 Dose: Not Given Levofloxacin (Levaquin) 250 mg PO DAILY [facility]; Protocol Stop: 06/28/18 22:01 Losartan Potassium (Cozaar) 100 mg PO DAILY [facility] Last Admin: 06/26/18 10:27 Dose: Not Given Metoprolol Tartrate (Lopressor) 12.5 mg PO BRKDIN [facility] Last Admin: 06/26/18 08:26 Dose: 12.5 mg Ondansetron HCl (Zofran Inj) 4 mg IVP Q4H PRN PRN Reason: Nausea/Vomiting Oxycodone/Acetaminophen (Percocet 10/325 Mg Tab) 1 tab PO Q6H PRN PRN Reason: Pain, severe (8-10) - Labs Labs: 06/26/18 10:50 06/26/18 10:50 - Constitutional Appears: Non-toxic, No Acute Distress - Head Exam Head Exam: ATRAUMATIC, NORMAL INSPECTION, NORMOCEPHALIC - Eye Exam Eye Exam: EOMI, Normal appearance, PERRL - Respiratory Exam Respiratory Exam: Clear to Ausculation Bilateral, NORMAL BREATHING PATTERN. absent: Accessory Muscle Use, Rales, Rhonchi, Wheezes, Respiratory Distress, Stridor - Cardiovascular Exam Cardiovascular Exam: RRR, +S1, +S2. absent: Gallop, Rubs - GI/Abdominal Exam GI & Abdominal Exam: Soft, Normal Bowel Sounds. absent: Firm, Guarding, Rigid, Tenderness - Extremities Exam Extremities Exam: Normal Capillary Refill. absent: Calf Tenderness, Tenderness - Back Exam Back Exam: NORMAL INSPECTION. absent: CVA tenderness (L), CVA tenderness (R) - Neurological Exam Neurological Exam: Alert, Awake, Oriented x3 - Psychiatric Exam Psychiatric exam: Normal Affect, Normal Mood - Skin Skin Exam: Dry, Normal Color, Warm Assessment and Plan - Assessment and Plan (Free Text) Assessment: Ms Obrien, 58F, with PMHx Gastric bypass 10 years ago and gastric lap-band September 2017, obesity, recurrent kidney stones x 3 (1 spontanous passage in September 2017, 2 required extracorporeal shockwave lithotripsy prior), DM, HTN, PCN allergy c/o R flank pain with nausea. CT scan showed obstructing stone of R ureteropelvic junction, 9.6 x 7mm with moderate R hydronephrosis. Pt had stent placement by urology earlier today. Plan: 1) R reteropelvic junction, 9.6 x 7mm s/p stent placement - Pt has noted hx of recurrent kidney stones x 3 - zofran prn, morphine 1q3 prn - Pt given 1 dose of gentamycin in OR - Pt is noted to be having hematuria which per urology is to be expected, pt reassured - Regular diet after procedure 2) Moderate R hydronephrosis - monitor kidney function, strict i/o 3) HTN - convert home meds to low dose metoprolol and ARBS 4) HLD - convert home meds to lipitor 5) DM - check a1c, ISSS-low, Accucheck 6) Obesity - BMI 38 - Regular diet 7) Microcytic anemia likely due to impaired absorption 2/2 Gastric bypass/lap band. - Follow up outpatient PVX-SCD. Low risk for GI stress ulcer Dispo: d/c in AM with follow up for lithotripsy Pt seen and discussed with Dr Grisel Kraft, PGY1 <Shauna Recinos - Last Filed: 06/26/18 16:49> Objective - Vital Signs/Intake and Output Vital Signs (last 24 hours): Temp Pulse Resp BP Pulse Ox 98.5 F 78 14 133/68 97 06/26/18 13:16 06/26/18 13:16 06/26/18 13:16 06/26/18 13:16 06/26/18 13:16 Intake and Output: 06/26/18 06/26/18 06:59 18:59 Intake Total 300 100 Output Total 800 Balance -500 100 - Medications Medications: Current Medications Acetaminophen (Tylenol 325mg Tab) 650 mg PO Q4H PRN PRN Reason: Pain, moderate (4-7) Atorvastatin Calcium (Lipitor) 40 mg PO DAILY [facility] Last Admin: 06/26/18 10:27 Dose: Not Given Dextrose (Dextrose 50% Inj) 0 ml IV STAT PRN; Protocol PRN Reason: Hypoglycemia Protocol Docusate Sodium (Colace) 100 mg PO BID [facility] Last Admin: 06/26/18 10:27 Dose: Not Given Sodium Chloride (Sodium Chloride 0.9%) 1,000 mls @ 100 mls/hr IV .Q10H [facility] Last Admin: 06/26/18 04:55 Dose: 100 mls/hr Dextrose (Dextrose 5% In Water 1000 Ml) 1,000 mls @ 0 mls/hr IV .Q0M PRN; Protocol PRN Reason: Hypoglycemia Protocol Insulin Human Regular (Humulin R Low) 0 units SC ACHS [facility]; Protocol Last Admin: 06/26/18 12:29 Dose: Not Given Levofloxacin (Levaquin) 250 mg PO DAILY [facility]; Protocol Stop: 06/28/18 22:01 Losartan Potassium (Cozaar) 100 mg PO DAILY [facility] Last Admin: 06/26/18 10:27 Dose: Not Given Metoprolol Tartrate (Lopressor) 12.5 mg PO BRKDIN [facility] Last Admin: 06/26/18 08:26 Dose: 12.5 mg Ondansetron HCl (Zofran Inj) 4 mg IVP Q4H PRN PRN Reason: Nausea/Vomiting Oxycodone/Acetaminophen (Percocet 10/325 Mg Tab) 1 tab PO Q6H PRN PRN Reason: Pain, severe (8-10) - Labs Labs: 06/26/18 10:50 06/26/18 10:50 Attending/Attestation - Attestation I have personally seen and examined this patient.: Yes I have fully participated in the care of the patient.: Yes I have reviewed all pertinent clinical information, including history, physical exam and plan: Yes Notes (Text): 06/26/18 16:46 58 year old female with past medical history of diabetes, hypertension and kidney stones who presented with complaint of right flank pain; found to have severe right obstructive uropathy with 10 x 7 mm stone at right UP junction with moderate right hydronephrosis on CT scan. She was started on IVF and analgesics. UCx noted to have GNR and patient is started on antibiotics. Urology evaluation was appreciated and patient underwent cystoscopy with stent placement this afternoon. Noted to have hematuria post procedure which may be expected. Will monitor overnight with d/c planning likely tomorrow. Shauna Recinos MD Hospitalist.
[2018-06-26 22:27] VITALS: RESP 18
[2018-06-27] MEDS: Insulin Reg-LOW-Coverage SC SCH ×2 (08:31→12:08)
[2018-06-27] MEDS ORDERED: levoFLOXacin 750 MG TAB PO SCH (10:00)
[2018-06-27 10:59] LABS: BASO # 0.03 K/mm3 (0.0-2.0); BASO % 0.6 % (0.0-3.0); EOS # 0.1 (0.0-0.7); EOS % 2.1 % (1.5-5.0); HEMOGLOBIN 9.3 g/dL (12.0-16.0); LYMPH # 1.5 (1.2-3.4); LYMPH % 27.3 % (22.0-35.0); MEAN CELL VOLUME 74.9 fl (80.0-105.0); MEAN CORPUSCULAR HEMOGLOBIN 22.4 pg (25.0-35.0); MEAN CORPUSCULAR HGB CONC 29.9 g/dl (31.0-37.0); MEAN PLATELET VOLUME 8.8 fl (7.0-11.0); MONO # 0.3 (0.1-0.6); MONO % 6.2 % (1.0-6.0); RBC 4.15 10^6/uL (3.5-6.1); RED CELL DISTRIBUTION WIDTH 17.2 % (11.5-14.5); WHITE BLOOD COUNT 5.3 10^3/uL (4.5-11.0)
[2018-06-27 15:24] VITALS: BP 150/61; PULSE 76; TEMP 97.6; O2SAT 95
--- NOTE | 2018-06-27 16:07 | CP.PCM.DIS ---
<Julisa Kraft - Last Filed: 06/27/18 16:47> Provider - Provider Date of Admission: 06/25/18 06:31 Attending physician: Shauna Recinos MD Primary care physician: Piero Craig MD Consults: 06/25/18 13:48 Physician Consult Routine Comment: Consulting Provider: Franko Green Consulting Physician: Franko Green Reason for Consult: cystoscopy Time Spent in preparation of Discharge (in minutes): 45 Diagnosis - Discharge Diagnosis (1) Renal colic Status: Acute Hospital Course - Lab Results Lab Results: Micro Results 06/25/18 05:00 Urine Random Urine Culture - Final Escherichia Coli Most Recent Lab Values WBC 5.3 10^3/uL (4.5-11.0) 06/27/18 10:40 RBC 4.15 10^6/uL (3.5-6.1) 06/27/18 10:40 Hgb 9.3 g/dL (12.0-16.0) L 06/27/18 10:40 Hct 31.1 % (36.0-48.0) L 06/27/18 10:40 MCV 74.9 fl (80.0-105.0) L 06/27/18 10:40 MCH 22.4 pg (25.0-35.0) L 06/27/18 10:40 MCHC 29.9 g/dl (31.0-37.0) L 06/27/18 10:40 RDW 17.2 % (11.5-14.5) H 06/27/18 10:40 Plt Count 291 10^3/uL (120.0-450.0) 06/27/18 10:40 MPV 8.8 fl (7.0-11.0) 06/27/18 10:40 Neut % (Auto) 63.8 % (50.0-68.0) 06/27/18 10:40 Lymph % (Auto) 27.3 % (22.0-35.0) 06/27/18 10:40 [place] % (Auto) 6.2 % (1.0-6.0) H 06/27/18 10:40 Eos % (Auto) 2.1 % (1.5-5.0) 06/27/18 10:40 Baso % (Auto) 0.6 % (0.0-3.0) 06/27/18 10:40 Lymph # (Auto) 1.5 (1.2-3.4) 06/27/18 10:40 [place] # (Auto) 0.3 (0.1-0.6) 06/27/18 10:40 Eos # (Auto) 0.1 (0.0-0.7) 06/27/18 10:40 Baso # (Auto) 0.03 K/mm3 (0.0-2.0) 06/27/18 10:40 Absolute Neuts (auto) 3.40 (1.4-6.5) 06/27/18 10:40 Sodium 140 mmol/L (132-148) 06/26/18 10:50 Potassium 4.5 mmol/L (3.6-5.0) 06/26/18 10:50 Chloride 109 mmol/L (98-107) H 06/26/18 10:50 Carbon Dioxide 25 mmol/L (21-33) 06/26/18 10:50 Anion Gap 10 (10-20) 06/26/18 10:50 BUN 16 mg/dL (7-21) 06/26/18 10:50 Creatinine 0.8 mg/dl (0.7-1.2) 06/26/18 10:50 Est GFR ( Amer) > 60 06/26/18 10:50 Est GFR (Non-Af Amer) > 60 06/26/18 10:50 POC Glucose (mg/dL) 206 mg/dL (65-110) H 06/27/18 11:10 Random Glucose 195 mg/dL (70-110) H 06/26/18 10:50 Hemoglobin A1c 8.6 % (4.2-6.5) H 06/25/18 08:00 Calcium 8.4 mg/dL (8.4-10.5) 06/26/18 10:50 Total Bilirubin 0.5 mg/dL (0.2-1.3) 06/26/18 10:50 AST 17 U/L (14-36) 06/26/18 10:50 ALT 18 U/L (7-56) 06/26/18 10:50 Alkaline Phosphatase 82 U/L (38-126) 06/26/18 10:50 Total Protein 6.1 g/dL (5.8-8.3) 06/26/18 10:50 Albumin 3.4 g/dL (3.0-4.8) 06/26/18 10:50 Globulin 2.7 gm/dL 06/26/18 10:50 Albumin/Globulin Ratio 1.3 (1.1-1.8) 06/26/18 10:50 Urine Color Yellow (YELLOW) 06/25/18 06:05 Urine Appearance Clear (CLEAR) 06/25/18 06:05 Urine pH 6.0 (4.7-8.0) 06/25/18 06:05 Ur Specific [place] 1.025 (1.005-1.035) 06/25/18 06:05 Urine Protein Negative mg/dL (<30 mg/dL) 06/25/18 06:05 Urine Glucose (UA) >=1000 mg/dL (NEGATIVE) 06/25/18 06:05 Urine Ketones 15 mg/dL (NEGATIVE) H 06/25/18 06:05 Urine Blood Trace-lysed (NEGATIVE) H 06/25/18 06:05 Urine Nitrate Negative (NEGATIVE) 06/25/18 06:05 Urine Bilirubin Negative (NEGATIVE) 06/25/18 06:05 Urine Urobilinogen 0.2 E.U./dL (<1 E.U./dL) 06/25/18 06:05 Ur Leukocyte Esterase Negative Alo/uL (NEGATIVE) 06/25/18 06:05 Urine RBC 0 - 2 /hpf (0-2) 06/25/18 06:05 Urine WBC 1 - 3 /hpf (0-6) 06/25/18 06:05 Ur Epithelial Cells 1 - 3 /hpf (0-5) 06/25/18 06:05 Urine Bacteria Occ /hpf (NONE) 06/25/18 06:05 - Hospital Course Hospital Course: Upon Admission: Ms Obrien, 58F, with PMHx Gastric bypass 10 years ago and gastric lap-band September 2017, recurrent kidney stones x 3 (1 spontanous passage in September 2017, 2 required extracorporeal shockwave lithotripsy prior), DM, HTN, PCN allergy c/o R flank pain with nausea. Pt had intermittent R flank recently but last night it was worsen to severe and new-onset vomiting. She vomited 3 times since, non-bloody, non-billous. No change in eating habit, no urinary frequency, no fever/chills. No recent travels. At baseline, pt walk 15-20 mins a day without chest pain or SOB. She is able to climb 1-2 flights of stairs w/o problem In the ED, VS stables with BP 170/90s due to pain. No leukocytosis. CMP normal except glucose 300. U/A shows WBC 1-3 no alo est, no nitrate CT scan showed obstructing stone of R ureteropelvic junction, 9.6 x 7mm. morphine helped but briefly. She requires morphine 2x2 and zofran. NS2L Hospital Course: Pt was being worked up for renal colic. CT as noted above showed an obstructing stone at the R ureteropelvic junction with moderate R hydronephrosis. Pt states that she has had this multiple times previously. Urology, Dr. Green, is consulted for the pt and the decision is made to have stent placement for the pt with potential lithotripsy at another facility if needed. Pt expressed agreement with the plan and had the stent placed the next day. Pt was placed NPO and went for stent placement the next day. The next day pt was noted to be growing e.coli in urine cx and was given a dose of gentamycin in OR. Pt after the procedure was noted to have hematuria, which was to be expected and the pt was reassured that this was normal. Pt kept overnight for observation. Overnight the pt had some pain which was relived by pain medication and then in the AM had no issues with pain. Pt also states that her hematuria cleared up after the bout overnight and states that she feels ready for d/c. Urology recommends pt follow up for lithotripsy at some point over the next week. Pt was told of plan for discharge with follow up with her PMD and urologist. Pt expressed understanding and agreement with plan for d/c and states she will be compliant with follow up. All of pts questions and concerns were addressed prior to d/c. Pt was given a script for PO abx for noted infection in urine and due to urologic manipulation. Discharge Exam - Head Exam Head Exam: ATRAUMATIC, NORMAL INSPECTION, NORMOCEPHALIC - Eye Exam Eye Exam: EOMI, Normal appearance, PERRL - Respiratory Exam Respiratory Exam: Clear to PA & Lateral, NORMAL BREATHING PATTERN, UNREMARKABLE. absent: Accessory Muscle Use, Rales, Rhonchi, Wheezes, Respiratory Distress, Stridor - Cardiovascular Exam Cardiovascular Exam: RRR, +S1, +S2. absent: Gallop, Rubs - GI/Abdominal Exam GI & Abdominal Exam: Normal Bowel Sounds, Soft, Unremarkable. absent: Firm, G uarding, Rebound, Rigid, Tenderness - Extremities Exam Extremities exam: normal capillary refill, normal inspection, pedal pulses present - Back Exam Back exam: NORMAL INSPECTION. absent: CVA tenderness (L), CVA tenderness (R) - Neurological Exam Neurological exam: Alert, Oriented x3 - Psychiatric Exam Psychiatric exam: Normal Affect, Normal Mood - Skin Skin Exam: Dry, Normal Color, Warm Discharge Plan - Discharge Medications Prescriptions: Nitrofurantoin Macrocrystal [Nitrofurantoin] 100 mg PO BID 7 Days #14 capsule - Follow Up Plan Condition: STABLE Disposition: HOME/ ROUTINE Instructions: Type 2 Diabetes, High Blood Pressure (DC), Renal Colic (DC), Flu Vaccine Additional Instructions: - Please follow up with your primary care doctor, Dr. Craig within 1 week of discharge for follow up. - Please follow up with Dr Green's office who will call you to schedule the next procedure for your kidney stone. - You were noted to have diabetes as your diabetes marker (hgba1c) was very high at 8.6. It is imperative you eat healthier (reduce your carb intake) and exercise. Please bring this up with Dr Craig when you see him as he might need to adjust your diabetes medications. - If you have any new symptoms please return to the nearest emergency department. Referrals: Piero Craig MD [Primary Care Provider] - Franko Green MD [Staff Provider] - <Shauna Recinos - Last Filed: 06/27/18 17:14> Provider - Provider Date of Admission: 06/25/18 06:31 Attending physician: Shauna Recinos MD Primary care physician: Piero Craig MD Consults: 06/25/18 13:48 Physician Consult Routine Comment: Consulting Provider: Franko Green Consulting Physician: Franko Green Reason for Consult: cystoscopy Hospital Course - Lab Results Lab Results: Micro Results 06/25/18 05:00 Urine Random Urine Culture - Final Escherichia Coli Most Recent Lab Values WBC 5.3 10^3/uL (4.5-11.0) 06/27/18 10:40 RBC 4.15 10^6/uL (3.5-6.1) 06/27/18 10:40 Hgb 9.3 g/dL (12.0-16.0) L 06/27/18 10:40 Hct 31.1 % (36.0-48.0) L 06/27/18 10:40 MCV 74.9 fl (80.0-105.0) L 06/27/18 10:40 MCH 22.4 pg (25.0-35.0) L 06/27/18 10:40 MCHC 29.9 g/dl (31.0-37.0) L 06/27/18 10:40 RDW 17.2 % (11.5-14.5) H 06/27/18 10:40 Plt Count 291 10^3/uL (120.0-450.0) 06/27/18 10:40 MPV 8.8 fl (7.0-11.0) 06/27/18 10:40 Neut % (Auto) 63.8 % (50.0-68.0) 06/27/18 10:40 Lymph % (Auto) 27.3 % (22.0-35.0) 06/27/18 10:40 [place] % (Auto) 6.2 % (1.0-6.0) H 06/27/18 10:40 Eos % (Auto) 2.1 % (1.5-5.0) 06/27/18 10:40 Baso % (Auto) 0.6 % (0.0-3.0) 06/27/18 10:40 Lymph # (Auto) 1.5 (1.2-3.4) 06/27/18 10:40 [place] # (Auto) 0.3 (0.1-0.6) 06/27/18 10:40 Eos # (Auto) 0.1 (0.0-0.7) 06/27/18 10:40 Baso # (Auto) 0.03 K/mm3 (0.0-2.0) 06/27/18 10:40 Absolute Neuts (auto) 3.40 (1.4-6.5) 06/27/18 10:40 Sodium 140 mmol/L (132-148) 06/26/18 10:50 Potassium 4.5 mmol/L (3.6-5.0) 06/26/18 10:50 Chloride 109 mmol/L (98-107) H 06/26/18 10:50 Carbon Dioxide 25 mmol/L (21-33) 06/26/18 10:50 Anion Gap 10 (10-20) 06/26/18 10:50 BUN 16 mg/dL (7-21) 06/26/18 10:50 Creatinine 0.8 mg/dl (0.7-1.2) 06/26/18 10:50 Est GFR ( Amer) > 60 06/26/18 10:50 Est GFR (Non-Af Amer) > 60 06/26/18 10:50 POC Glucose (mg/dL) 135 mg/dL (65-110) H 06/27/18 16:24 Random Glucose 195 mg/dL (70-110) H 06/26/18 10:50 Hemoglobin A1c 8.6 % (4.2-6.5) H 06/25/18 08:00 Calcium 8.4 mg/dL (8.4-10.5) 06/26/18 10:50 Total Bilirubin 0.5 mg/dL (0.2-1.3) 06/26/18 10:50 AST 17 U/L (14-36) 06/26/18 10:50 ALT 18 U/L (7-56) 06/26/18 10:50 Alkaline Phosphatase 82 U/L (38-126) 06/26/18 10:50 Total Protein 6.1 g/dL (5.8-8.3) 06/26/18 10:50 Albumin 3.4 g/dL (3.0-4.8) 06/26/18 10:50 Globulin 2.7 gm/dL 06/26/18 10:50 Albumin/Globulin Ratio 1.3 (1.1-1.8) 06/26/18 10:50 Urine Color Yellow (YELLOW) 06/25/18 06:05 Urine Appearance Clear (CLEAR) 06/25/18 06:05 Urine pH 6.0 (4.7-8.0) 06/25/18 06:05 Ur Specific [place] 1.025 (1.005-1.035) 06/25/18 06:05 Urine Protein Negative mg/dL (<30 mg/dL) 06/25/18 06:05 Urine Glucose (UA) >=1000 mg/dL (NEGATIVE) 06/25/18 06:05 Urine Ketones 15 mg/dL (NEGATIVE) H 06/25/18 06:05 Urine Blood Trace-lysed (NEGATIVE) H 06/25/18 06:05 Urine Nitrate Negative (NEGATIVE) 06/25/18 06:05 Urine Bilirubin Negative (NEGATIVE) 06/25/18 06:05 Urine Urobilinogen 0.2 E.U./dL (<1 E.U./dL) 06/25/18 06:05 Ur Leukocyte Esterase Negative Alo/uL (NEGATIVE) 06/25/18 06:05 Urine RBC 0 - 2 /hpf (0-2) 06/25/18 06:05 Urine WBC 1 - 3 /hpf (0-6) 06/25/18 06:05 Ur Epithelial Cells 1 - 3 /hpf (0-5) 06/25/18 06:05 Urine Bacteria Occ /hpf (NONE) 06/25/18 06:05 Attending/Attestation - Attestation I have personally seen and examined this patient.: Yes I have fully participated in the care of the patient.: Yes I have reviewed all pertinent clinical information, including history, physical exam and plan: Yes Notes (Text): 06/27/18 17:11 58 year old female with past medical history of diabetes, hypertension and kidney stones who presented with complaint of right flank pain. She was found to have severe right obstructive uropathy with 10 x 7 mm stone at right UP junction with moderate right hydronephrosis on CT scan. She was started on IVF and analgesics. She was started on antibiotics for UTI. She was seen by urolog y and underwent cystoscopy with stent placement yesterday. She had post procedure hematuria which improved today. Patient is discharged home to follow up with pmd. Follow up with urology. Continue with antibiotics as prescribed. Shauna Recinos MD Hospitalist.
--- NOTE | 2018-07-01 02:01 | CON ---
DATE: 06/25/2018 UROLOGY CONSULTATION REASON FOR CONSULTATION: Severe flank pain and hydronephrosis. HISTORY OF PRESENT ILLNESS: Ms. Obrien is a very pleasant lady, whom I am just beginning now to meet. She is 58 years old. She presents with severe right flank pain. This is her fourth stone ever. Previously, she had been treated in the following way. She has had shockwave. She has also had spontaneous passage of the stone. She has ongoing severe pain with a fairly proximal stone at UPJ with severe pain. See the plan listed below. We discussed options for treatment. She is under the care of Shauna Recinos MD. The patient has seen Dr. Guevara. We discussed options, see below. The possibility for me just placing a stent and then him completing the treatment versus the possibility of finishing the treatment. Urology is consulted for further plan. PAST MEDICAL HISTORY: As listed on the chart. PAST SURGICAL HISTORY: As listed on the chart. MEDICATIONS: See the chart. ALLERGIES: SEE THE CHART. Now, she sees doctor , who happens to not come here, not listed on the hospital service, but her private doctor is noted. 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 She has older children. Otherwise essentially unremarkable. REVIEW OF SYSTEMS: As listed above, otherwise noncontributory. No weight loss chest pain, or shortness of breath otherwise. In general in reasonably good medical situation. PHYSICAL EXAMINATION: GENERAL: She is a well nourished female in no apparent distress. She is currently resting comfortably in her bed. VITAL SIGNS: Noted. Physical examination is otherwise unremarkable. LABORATORY DATA: See chart. CT scan noted. DIAGNOSES: Severe renal colic. PLAN: At this point, we discussed various options with the patient. The idea of putting a stent in at this point versus the possibility of observing the patient, going through shockwave lithotripsy. She has various issues in terms of timing for the various possibilities for how we treat her. From an Urology standpoint, as follows. We made arrangements for immediate cystoscopy and stent insertion. The patient wants to see if she can pass the stone by herself. Intermittently, she is having pain. So from Urology standpoint, the plan is as follows: 1. IV fluid. 2. Analgesic. 3. Cystoscopy. 4. Stent insertion. 5. Further plans will follow. I discussed with the patient. She has my phone number. We will discuss further plans. For today, we are not going to put her in the OR schedule until she is ready. Further plans will follow Aries Green MD
--- NOTE | 2018-07-01 02:58 | OP ---
PROCEDURE DATE: 06/26/2018 UROLOGY OPERATIVE NOTE PREOPERATIVE DIAGNOSES: Urolithiasis, severe renal colic with right hydronephrosis, hematuria. POSTOPERATIVE DIAGNOSES: Urolithiasis, severe renal colic with right hydronephrosis, hematuria. PROCEDURE: Exam under anesthesia, cystoscopy, right retrograde pyelogram, insertion of right double J stent. COMPLICATIONS: There were no complications. ESTIMATED BLOOD LOSS: Less than 10 mL. UROLOGY OPERATIVE FINDINGS: There was a stone in the stent inserted. It was a good sized stone. We did a picture, there were actually some beautiful pictures I took and saved. They are not easily seen on the district scout executive films (but the patient has reported that she had previously been treated at the [facility], which sounds like a shockwave lithotripsy). So, I will have to investigate this further. We are definitely seeing nice beautiful filling defect on the retrograde confirming that, that it is a stone, and in the end, we have a well-deployed double-J stent. There were no other abnormal findings. INDICATIONS: See history and physical for further details. This is a very pleasant lady with a right renal colic and a stone, hydronephrosis, very proximal. We discussed options. We did cystoscopy, ureteroscopy, laser lithotripsy, discussed cysto, stent insertion, shockwave lithotripsy. At this point, she is here for a cysto and a stent insertion. It is a very proximal stone and now that we did the procedure to get more proximal. Risks and benefits were discussed at length. We planned to proceed. I do want to mention through the addendum at the end, after placing the stent, we are planning for a shockwave lithotripsy for next week. DESCRIPTION OF PROCEDURE: After obtaining informed consent, the patient was placed on the table. Routine monitors were placed. Time-out was called to confirm the patient and positioning. We introduced the cystoscope via urethra, a district scout executive film was performed. It was not easier to identify the stone. I have even the CAT scan with me and even after the fact once I did a retrograde and I know exactly where the stone is and I see the filling defect, I am not absolutely convinced on the district scout executive film (that is suggestive of either a very faint stone or a lot of gas or perhaps a uric acid stone. We will have to evaluate this further. Once we make further progress, but these pictures were saved. Actually, gave them to the patient and a copy for me as well. After obtaining informed consent, the patient was placed on the table. Routine monitors were placed. Time-out was called to confirm the patient and positioning. Ramp Flight Attendant film was performed. We now introduced the cystoscope via the urethra, identified the right ureteral orifice where right retrograde pyelogram was performed. Without abnormalities, we can identify beautiful filling defect representing the stone. We ran the level of the renal pelvis. I put a wire up to the kidney, without difficulty put a double-J stent, passed the point of obstruction and drained the kidney. We did multiple images to confirm this. The patient tolerated it well without complications. The bladder was emptied and cystoscope removed . ADDENDUM The plan will be outpatient shockwave lithotripsy and then further plans will follow. Aries Green MD
--- NOTE | 2018-07-01 09:24 | PN ---
DATE: 06/26/2018 UROLOGY IMMEDIATE POSTOPERATIVE NOTE See the history and physical, consultation and operative note. The patient is in recovery room status post cystoscopy and a stent. She is doing well. Vital signs are within normal limits. Status post stent placement. She feels much better and with almost no side effect so far. The patient has not yet voided. Aries Green MD
== END 2018-06-27 18:04 | disposition home or self-care (01) ==
LOC: ED 04:26 → ERH 06:31 → 5RSO 11:00
PROVIDERS: ADMIT Hospitalist; ATTEND Internal Medicine
DX: N13.2 Hydronephrosis with renal and ureteral calculous obstruction (principal); R31.9 Hematuria, unspecified; I12.9 Hypertensive chronic kidney disease with stage 1 through stage 4 chronic kidney disease, or unspecified chronic kidney disease; N18.9 Chronic kidney disease, unspecified; E11.22 Type 2 diabetes mellitus with diabetic chronic kidney disease; D50.9 Iron deficiency anemia, unspecified; E78.5 Hyperlipidemia, unspecified; E66.9 Obesity, unspecified; Z68.38 Body mass index [BMI] 38.0-38.9, adult; Z98.84 Bariatric surgery status; Z79.84 Long term (current) use of oral hypoglycemic drugs; Z88.0 Allergy status to penicillin
CPT/HCPCS: 36415; 52332; 71046; 74176; 76000; 80053; 81001; 82948; 83036; 85025; 85027; 87086; 87181; 93005; 96374; 96375; 96376; 99285; C1758; C1769; C2625; G0378; J1580; J1885; J2001; J2250; J2270; J2405; J2704; J7030; J7120; Q9966

== ENCOUNTER 2018-07-10 07:01 | Day surgery (SDC) | payer BC ==
[2018-07-09 13:04] VITALS: BMI 39.1
[2018-07-10] MEDS ORDERED: Propofol 10 mg/ml Inj (20 ML) ONE (09:53)
[2018-07-10] MEDS ORDERED: Ciprofloxacin 400mg/200ml D5W 400 MG/200 ML BAG IVPB STA (09:54)
[2018-07-10] MEDS ORDERED: Oxycodone/Acetaminophen 5/325 mg Tab PO PRN (09:55)
[2018-07-10] MEDS ORDERED: Gentamicin 80 mg in 0.9% NS 80 MG/100 ML BAG IVPB ONE (10:09)
[2018-07-10] MEDS ORDERED: HYDROmorphone 0.5 mg/0.5 ml ISec IVP PRN (10:36)
[2018-07-10] MEDS ORDERED: Lactated Ringer's 1,000 ML IV SCH (10:45)
[2018-07-10 11:03] VITALS: O2SAT 98
[2018-07-10 11:30] VITALS: RESP 20; TEMP 98
[2018-07-10 12:09] VITALS: BP 124/59; PULSE 87
--- NOTE | 2018-07-10 12:28 | RAD ---
Date of service: 07/10/2018 PROCEDURE: Retrograde pyelogram HISTORY: N COMPARISON: TECHNIQUE: 13.1 sec of fluoro time. Cumulative dose 4.84 mGy. Fifteen images were submitted FINDINGS: The study shows placement of a right ureteral stent IMPRESSION: As above
--- NOTE | 2018-07-23 13:53 | PN ---
DATE: 07/10/2018 IMMEDIATE UROLOGY POSTOPERATIVE NOTE See the history and physical, see the operative note. The patient is in the recovery room, status post cystoscopy, ureteroscopy, renoscopy. The findings of fat in the urine in the kidney. No big stones are noted. And we because of the procedure stented. Vital signs are noted. There were no complications again see the separately dictated procedure note. Vital signs remains stable. The plan is to discharge home and then further plans will follow. Aries Green MD
--- NOTE | 2018-07-23 15:12 | OP ---
PROCEDURE DATE: 07/10/2018 PREOPERATIVE DIAGNOSES: Urolithiasis, hematuria, hydronephrosis. POSTOPERATIVE DIAGNOSES: Urolithiasis, hematuria, hydronephrosis. PROCEDURE: Cystoscopy, removal of a right double-J stent, right ureteroscopy, right retrograde pyelogram, right renoscopy, and insertion of right double-J stent with dangles. SURGEON: Aries Green MD. ESTIMATED BLOOD LOSS: Less than 10 mL. COMPLICATIONS: There were no complications. INDICATIONS: See history and physical for further details. But in brief, a very pleasant lady, previously she underwent a cysto and stent insertion for a severe renal colic. We then brought her to [place] and we did a shockwave lithotripsy with a very good result, but the patient reports that she never passed any stones. Now that I am doing this procedure and I see in my operative findings basically that there is sand in the kidney and there is still sand. But the patient's stone is suddenly broken at this point. Today, she is brought in for the above procedure. On urology operative findings, saw there was sand in the kidney. No large stones identified. And in fact so much so that we left her because we did the procedure, we left a stent with dangles. See the immediate postoperative note. The plan is to have the patient remove that herself. I left her with dangles so she does not need any more procedures and she is going to remove that tomorrow herself. Again the urology operative findings, bladder mucosa is within normal limits. The kidney is within normal limits. Just the sand is identified. We did a ureteroscopy, renoscopy with a flexible ureteroscope. We did not do any laser today. Just because we had done a retrograde and saw the outline of the kidney, I spent some time looking in the various calyces once the with the stent was dangled. She does not have postop pain. Also would like to mention at this point, this is a repeat of a dictation because as I am going through my notes and preparing my dictation, I am recalling many of the facets to a particular patient. PROCEDURE: After obtaining informed consent, the patient was placed on the table. Routine monitors were placed. Time-out was called to confirm the patient and positioning. Antibiotic prophylaxis was used. We identified the patient. Time-out was called to confirm the patient and positioning. The patient was placed in the lithotomy position. Antibiotic prophylaxis was used. We introduced the cystoscope via the urethra. We identified the old stent. It is actually a little bit encrusted for a relatively used stent. The procedure continued in the following fashion. The was identified and removed. Again, it is a little bit encrusted as noted. We then passed a wire up to the kidney, we removed the double-J stent from the ureteral orifice, put a wire up to the kidney. We went back and put a second wire in. We put the flexible ureteroscope all the way up to the kidney. The entire procedure was done with the camera as well as fluoroscopic imaging. We now went into base of each calyx and inspected carefully. We outlined the kidney with the retrograde pyelogram. In particular, multiple pictures were taken and saved. We identified some stones, but they are really sand, there was just sand sitting there in the bladder. And irrigates nicely and easily. There are too many to do anything and there are too many, too small to do anything more. We spent a while looking. There were no big stones identified in any one of the calyces. At this point, the wire was up in the kidney, put a double-J stent in. We drained the kidney, irrigated the bladder. The patient tolerated the procedure without complication. I put a double-J stent with dangles, tucked the dangles away in the vagina. The patient tolerated the procedure without any complications. Exam under anesthesia revealed normal external genitalia. No pelvic or rectal abnormalities. The patient tolerated the procedure without any complications. ADDENDUM: I discussed with the patient the plan will be for her to remove the stent at about 24 hours. If it bothers her too much, we will even plan to do it earlier. Aries Green MD
== END 2018-07-10 12:20 | disposition home or self-care (01) ==
LOC: SDS 07:01
PROVIDERS: ATTEND Urology
DX: N13.2 Hydronephrosis with renal and ureteral calculous obstruction (principal)
CPT/HCPCS: 52332; 52351; 74420; 88300; C2625; J0744; J1170; J1580; J1885; J2001; J2704; J3010; J7120 ×2

== ENCOUNTER 2018-07-12 12:00 | Inpatient (IN) | payer BC ==
[2018-07-12 12:14] VITALS: BMI 38.4
[2018-07-12] MEDS ORDERED: Sodium Chloride 0.9% 1,000 ML IV STA (12:16)
--- NOTE | 2018-07-12 12:22 | ED PDOC ---
Arrival/HPI - General Time Seen by Provider: 07/12/18 12:11 Historian: Patient, Family - History of Present Illness Narrative History of Present Illness (Text): 07/12/18 12:16 A 58 year old female, whose past medical history includes kidney stones, presen ts to the emergency department complaining of right flank pain since earlier this week. Patient reports she had a lithotripsy procedure done last week by Dr. Pineda in [place]. Patient notes this week she began experiencing right flank pain with associated subjective fever, dizziness, poor appetite from nausea, urinary urgency and an inability to urinate. Patient denies any hematuria or any other complaints. PMD: Dr. Craig Time/Duration: Other (a few days) Symptom Onset: Gradual Symptom Course: Unchanged Severity Level: 4 Activities at Onset: Light Context: Home Past Medical History - Provider Review Nursing Documentation Reviewed: Yes - Infectious Disease Hx of Infectious Diseases: None - Tetanus Immunization Tetanus Immunization: Unknown - Cardiac Hx Pacemaker: No - Pulmonary Hx Respiratory Disorders: No Hx Asthma: No Hx Bronchitis: No Hx Chronic Obstructive Pulmonary Disease (COPD): No Hx Emphysema: No Hx Pneumonia: No Hx Respiratory Aspiration: No Hx Respiratory Tract Infection: No Hx Sleep Apnea: No Hx Tuberculosis: No - Neurological Hx Paralysis: No - HEENT Hx HEENT Disorder: No - Renal Hx Kidney Stones: Yes - Endocrine/Metabolic Hx Diabetes Mellitus Type 2: Yes - Hematological/Oncological Hx Blood Transfusions: No Hx Blood Transfusion Reaction: No - Musculoskeletal/Rheumatological Hx Musculoskeletal Disorders: No - Psychiatric Hx Emotional Abuse: No Hx Physical Abuse: No Hx Substance Use: No - Surgical History Hx Cardiac Catheterization: No Hx Coronary Stent: No - Anesthesia Hx Anesthesia Reactions: Yes Hx Malignant Hyperthermia: No - Suicidal Assessment Feels Threatened In Home Enviroment: No Family/Social History - Physician Review Nursing Documentation Reviewed: Yes Family/Social History: No Known Family HX Smoking Status: Never Smoked Hx Alcohol Use: Yes (SOCIAL) Hx Substance Use: No Hx Substance Use Treatment: No Allergies/Home Meds Allergies/Adverse Reactions: Allergies Penicillins Allergy (Verified 07/12/18 12:14) ANAPHYLAXIS Home Medications: Home Meds Medication Instructions Recorded Confirmed Rosuvastatin Calcium [Crestor] 10 mg PO DAILY 06/05/12 07/12/18 Nebivolol [Bystolic] 5 mg PO DAILY 03/30/17 07/12/18 Olmesartan Medoxomil [Benicar] 40 mg PO DAILY 03/30/17 07/12/18 glyBURIDE [Micronase] 5 mg PO BID 06/25/18 07/12/18 Tamsulosin [Flomax] 0.4 mg PO DAILY 07/09/18 07/12/18 Acetaminophen with Codeine 1 tab PO Q6H PRN 07/10/18 07/12/18 [Tylenol with Codeine No. 3 300 mg-30 mg] Phenazopyridine [Phenazopyridine 200 mg PO Q12H PRN 07/10/18 07/12/18 HCl] levoFLOXacin [Levaquin] 500 mg PO DAILY 07/10/18 07/12/18 Review of Systems - Physician Review All systems were reviewed & negative as marked: Yes - Review of Systems Constitutional: Fevers (subjective fever) Gastrointestinal: Abdominal Pain (right flank pain), Nausea, Appetite Changes (poor appetite from nausea) Genitourinary Female: Other (urinary urgency; unable to urinate). absent: Hematuria Neurological: Dizziness Physical Exam - Physical Exam Narrative Physical Exam (Text): 07/12/18 12:18 Gen: VS reviewed, alert, well developed, well nourished, nontoxic, mild distress. ENT: normal pharynx. Eye: EOMI, PERRL. Neck: no JVD, supple, no adenopathy. CV: regular rate, regular rhythm, no rubs, no murmur, no gallops, S1, S2, pulses equal and strong. Pulm: no distress, clear to auscultation, no wheeze, no rhonchi, breath sounds equal, no rales. Abd: soft, nontender, no guarding, no rebound, no rigidity, normal bowel sounds. Ext: no edema. Skin: good color, no rash, no cyanosis. Psych: responds appropriately to questions, normal affect. Neuro: oriented x 3, CN2-12 intact grossly, motor intact, sensation intact. Vital Signs Reviewed: Yes Temperature: Febrile Blood Pressure: Normal Pulse: Tachycardic Respiratory Rate: Normal Appearance: Positive for: Well-Appearing Mental Status: Positive for: Alert and Oriented X 3 Medical Decision Making ED Course and Treatment: 07/12/18 12:18 Impression: 58 year old female presenting to the emergency room complaining of right flank pain. Plan: -- BMP -- CBC -- Urine Culture -- Xray of Abdomen -- Urinalysis -- Reassess and disposition Prior Visits: Notes and results from previous visits were reviewed. Progress Notes: 07/12/18 13:[address] aguilar, will see pt in consult. is currently seeing patient's in the office. he recommends removal of the stent to eliminate the potential nidus of infection. imaging kub for now. 07/12/18 13:43 female refrigeration specialist RN griselda. the ureteral stent was removed by myself intact, tolerated procedure well and placed directly into sterile container. at this time the patient is still unable to provide urine. admit accepted by dr. borjas to the hospitalist service. patient to be admitted f or sepsis,uti, stemming from infected ureteral stent. just prior to the stent being removed it was noticed that the stent was immmediately seen on first pull of the connected string. - Critical Care Critical Care Minutes: 30 minutes (critical care for critical illness, complex medical decision making) - RAD Interpretation Narrative RAD Interpretations (Text): 07/12/18 14:55 Dictator: James Jordan Procedure: Abdomen X-ray Impression: No active disease. [place] Teacher: Radiologist - Scribe Statement The provider has reviewed the documentation as recorded by the Frantzibkristal Lafleur All medical record entries made by the Scribe were at my direction and per sonally dictated by me. I have reviewed the chart and agree that the record accurately reflects my personal performance of the history, physical exam, medical decision making, and the department course for this patient. I have also personally directed, reviewed, and agree with the discharge instructions and disposition. Disposition/Present on Arrival - Present on Arrival Any Indicators Present on Arrival: No History of DVT/PE: No History of Uncontrolled Diabetes: Yes Urinary Catheter: No History Surgical Site Infection Following: None - Disposition Have Diagnosis and Disposition been Completed?: Yes Diagnosis: UTI (urinary tract infection), Sepsis Disposition: HOSPITALIZED Disposition Time: 13:46 Patient Plan: Admission Patient Problems: Current Active Problems Problem Status Onset Sepsis Acute UTI (urinary tract infection) Acute Condition: GUARDED
[2018-07-12 12:28] LABS: BASO # 0.03 K/mm3 (0.0-2.0); BASO % 0.2 % (0.0-3.0); HEMOGLOBIN 11.7 g/dL (12.0-16.0); MEAN CELL VOLUME 73.6 fl (80.0-105.0); MEAN CORPUSCULAR HEMOGLOBIN 22.4 pg (25.0-35.0); MEAN CORPUSCULAR HGB CONC 30.5 g/dl (31.0-37.0); MEAN PLATELET VOLUME 9.2 fl (7.0-11.0); RBC 5.22 10^6/uL (3.5-6.1); RED CELL DISTRIBUTION WIDTH 16.3 % (11.5-14.5); WHITE BLOOD COUNT 13.9 10^3/uL (4.5-11.0)
[2018-07-12 12:39] LABS: CALCIUM 9.1 mg/dL (8.4-10.5)
[2018-07-12] MEDS ORDERED: Aztreonam 1 Gm in NS 100mL 100 ML IVPB STA (12:43)
--- NOTE | 2018-07-12 12:48 | PCM.SEPTIC ---
Sepsis Progress Note - Reassessment Type Date of Evaluation: 07/12/18 Time of Evaluation: 16:17 Reassessment Type: Non-invasive reassessment - Non Invasive Reassessment Were the most recent vital sign reviewed: Yes Vital Sign (Latest): Temp Pulse Resp BP Pulse Ox 100.9 F H 101 H 18 118/63 95 07/12/18 12:01 07/12/18 12:01 07/12/18 12:01 07/12/18 12:01 07/12/18 12:01 Cardiovascular: Yes: Regular Rate, Rhythm Respiratory: Yes: Normal Breath Sounds Capillary Refill: Normal (Less than 2 sec) Skin: Normal Color
[2018-07-12 12:54] LABS: VENOUS BLOOD GAS BASE EXCESS 0.6 mmol/L (0.0-2.0); VENOUS BLOOD GAS PO2 28 mm/Hg (30-55); VENOUS BLOOD PH 7.44 (7.32-7.43)
--- NOTE | 2018-07-12 14:19 | CP.PCM.HP ---
<CarrollMarv R - Last Filed: 07/12/18 15:04> History of Present Illness - History of Present Illness History of Present Illness: PGY-2 H&P for Dr Recinos Ms Obrien, 58F, with PMHx Gastric bypass 10 years ago and gastric lap-band September 2017, recurrent kidney stones x 3 (1 spontanous passage in September 2017, 2 required extracorporeal shockwave lithotripsy prior), DM, HTN, PCN allergy c/o right flan k pain with subjective fevers and chills for the past 2 days. She recently had a stent placed with urologist Dr Green on 07/10/18 (per records) for a ureteral kidney stone. She also endorsed nausea, loss of appetite, and inability to urinate (now resolved). She denied hematuria, chest pain, shortness of breath, diarrhea. In the ED she was given aztreonam and the ED attending took out the ureteral stent as advised by urologist Dr Green. A code sepsis was called in the ED. PMHx: HTN, DM - non-insulin dep, recurrent kidney stones x 3 (1 spontanous passage in September 2017, 2 required extracorporeal shockwave lithotripsy prior) PSHx: Gastric bypass 10 years ago and gastric lap-band September 2017, c holecystectomy, hysterectomy FHx: Denied SH: Worked in office. 2 sons. denies drink, smoke, drug All: Penicillin Med: glyburide 5 bid, crestor 10, olmesartan 40, bystolic 5 PMD = Dr Craig Urol = Dr Guevara Present on Admission - Present on Admission Any Indicators Present on Admission: No Review of Systems - Review of Systems All systems: reviewed and no additional remarkable complaints except (as stated in HPI) Past Patient History - Infectious Disease Hx of Infectious Diseases: None - Tetanus Immunizations Tetanus Immunization: Unknown - Past Social History Smoking Status: Never Smoked - CARDIAC Hx Pacemaker: No - PULMONARY Hx Respiratory Disorders: No Hx Asthma: No Hx Bronchitis: No Hx Chronic Obstructive Pulmonary Disease (COPD): No Hx Emphysema: No Hx Pneumonia: No Hx Respiratory Aspiration: No Hx Respiratory Tract Infection: No Hx Sleep Apnea: No Hx Tuberculosis: No - NEUROLOGICAL Hx Paralysis: No - HEENT Hx HEENT Problems: No - RENAL Hx Kidney Stones: Yes - ENDOCRINE/METABOLIC Hx Diabetes Mellitus Type 2: Yes - HEMATOLOGICAL/ONCOLOGICAL Hx Blood Transfusions: No Hx Blood Transfusion Reaction: No - MUSCULOSKELETAL/RHEUMATOLOGICAL Hx Musculoskeletal Disorders: No - PSYCHIATRIC Hx Emotional Abuse: No Hx Physical Abuse: No Hx Substance Use: No - SURGICAL HISTORY Hx Cardiac Catheterization: No Hx Coronary Stent: No - ANESTHESIA Hx Anesthesia Reactions: Yes Hx Malignant Hyperthermia: No Meds Allergies/Adverse Reactions: Allergies Allergy/AdvReac Type Severity Reaction Status Date / Time Penicillins Allergy ANAPHYLAXIS Verified 07/12/18 12:14 Physical Exam - Additional Findings Additional findings: - Constitutional Appears: No Acute Distress - Head Exam Head Exam: ATRAUMATIC, NORMAL INSPECTION, NORMOCEPHALIC - Eye Exam Eye Exam: EOMI, Normal appearance, PERRL. absent: Scleral icterus Pupil Exam: NORMAL ACCOMODATION - ENT Exam ENT Exam: Mucous Membranes Moist - Neck Exam Neck exam: Positive for: Normal Inspection - Respiratory Exam Respiratory Exam: Clear to Auscultation Bilateral, NORMAL BREATHING PATTERN. absent: Rales, Rhonchi, Wheezes - Cardiovascular Exam Cardiovascular Exam: REGULAR RHYTHM, +S1, +S2 - GI/Abdominal Exam GI & Abdominal Exam: Normal Bowel Sounds, Soft. absent: Distended, Firm, Guarding, Rigid, Tenderness Additional comments: (+) suprapubic tenderness - Back Exam Back exam: CVA tenderness (R). absent: paraspinal tenderness, rash noted - Neurological Exam Neurological exam: Alert, CN II-XII Intact, Oriented x3 - Psychiatric Exam Psychiatric exam: Normal Affect, Normal Mood - Skin Skin Exam: Dry, Warm Results - Vital Signs Recent Vital Signs: Last Vital Signs Temp 100.7 F H 07/12/18 13:51 Pulse 101 H 07/12/18 13:51 Resp 18 07/12/18 13:51 BP 116/61 07/12/18 13:51 Pulse Ox 95 07/12/18 13:51 - Labs Result Diagrams: 07/12/18 12:15 07/12/18 12:15 Labs: Laboratory Results - last 24 hr 07/12/18 07/12/18 07/12/18 12:15 12:15 12:45 WBC 13.9 H D RBC 5.22 Hgb 11.7 L D Hct 38.4 MCV 73.6 L MCH 22.4 L MCHC 30.5 L RDW 16.3 H Plt Count 289 MPV 9.2 Neut % (Auto) 78.8 H Lymph % (Auto) 14.0 L [place] % (Auto) 7.0 H Eos % (Auto) 0.0 L Baso % (Auto) 0.2 Lymph # (Auto) 2.0 [place] # (Auto) 1.0 H Eos # (Auto) 0.0 Baso # (Auto) 0.03 Absolute Neuts (auto) 10.96 H pO2 28 L VBG pH 7.44 H VBG pCO2 36.0 L VBG HCO3 24.5 VBG Total CO2 25.6 VBG O2 Sat (Calc) 56.4 VBG Base Excess 0.6 VBG Potassium 4.4 Glucose 258 H Lactate 1.6 FiO2 21.0 Sodium 131 L 131.0 L Potassium 4.5 Chloride 96 L 97.0 L Carbon Dioxide 24 Anion Gap 16 BUN 13 Creatinine 1.2 Est GFR ( Amer) 56 Est GFR (Non-Af Amer) 46 Random Glucose 254 H Calcium 9.1 Venous Blood Potassium 4.4 Assessment & Plan - Assessment and Plan (Free Text) Plan: Ms Obrien, 58F, with PMHx Gastric bypass 10 years ago and gastric lap-band September 2017, recurrent kidney stones x 3 (1 spontanous passage in September 2017, 2 required extracorporeal shockwave lithotripsy prior), DM, HTN, PCN allergy c/o right flank pain with subjective fevers and chills for the past 2 days. Of note, she recently had a ureteral stent placed by Dr Green. #Sepsis -Tmax 101.4 and tachy on admission -Urologist Dr Green recommended removal of the recently placed ureteral stent to eliminate the potential nidus of infection - this was done by the ED attending -cystoscopy extraction pigtail stent with urologist Dr Jose Green 07/10/18 (per chart) -f/u abdomen flat plate -aztreonam 1g ivpb q8h -percocet 5/325mg 1 tab po q6h prn for severe pain -f/u blood cx, urine cx, UA -infectious disease consult, Dr Bonilla -urologist Dr Jose Green #HTN -we will hold anti-hypertensive meds at this time due to borderline low BP, once BP improves we can resume home meds by converting home meds to lopressor 12.5mg bid and losartan 100mg po qd #Diabetes Mellitus -latest a1c from 06/2018 was 8.6 -consistent carb diet -RISS low protocol -hypoglycemia protocol #HLD -convert home med to lipitor 40mg po hs #Anemia -microcytic anemia likely due to impaired absorption 2/2 Gastric bypass/lap band -trend h/h -outpatient f/u PPx -heparin 5000u sc q8 -SCDs Seen and discussed with Dr Recinos <Shauna Recinos - Last Filed: 07/12/18 16:44> Results - Vital Signs Recent Vital Signs: Last Vital Signs Temp 101.4 F H 07/12/18 15:13 Pulse 95 H 07/12/18 15:13 Resp 18 07/12/18 15:13 BP 110/63 07/12/18 15:13 Pulse Ox 95 07/12/18 15:13 - Labs Result Diagrams: 07/12/18 12:15 07/12/18 12:15 Labs: Laboratory Results - last 24 hr 07/12/18 07/12/18 07/12/18 12:15 12:15 12:45 WBC 13.9 H D RBC 5.22 Hgb 11.7 L D Hct 38.4 MCV 73.6 L MCH 22.4 L MCHC 30.5 L RDW 16.3 H Plt Count 289 MPV 9.2 Neut % (Auto) 78.8 H Lymph % (Auto) 14.0 L [place] % (Auto) 7.0 H Eos % (Auto) 0.0 L Baso % (Auto) 0.2 Lymph # (Auto) 2.0 [place] # (Auto) 1.0 H Eos # (Auto) 0.0 Baso # (Auto) 0.03 Absolute Neuts (auto) 10.96 H pO2 28 L VBG pH 7.44 H VBG pCO2 36.0 L VBG HCO3 24.5 VBG Total CO2 25.6 VBG O2 Sat (Calc) 56.4 VBG Base Excess 0.6 VBG Potassium 4.4 Glucose 258 H Lactate 1.6 FiO2 21.0 Sodium 131 L 131.0 L Potassium 4.5 Chloride 96 L 97.0 L Carbon Dioxide 24 Anion Gap 16 BUN 13 Creatinine 1.2 Est GFR ( Amer) 56 Est GFR (Non-Af Amer) 46 POC Glucose (mg/dL) Random Glucose 254 H Calcium 9.1 Venous Blood Potassium 4.4 07/12/18 16:01 WBC RBC Hgb Hct MCV MCH MCHC RDW Plt Count MPV Neut % (Auto) Lymph % (Auto) [place] % (Auto) Eos % (Auto) Baso % (Auto) Lymph # (Auto) [place] # (Auto) Eos # (Auto) Baso # (Auto) Absolute Neuts (auto) pO2 VBG pH VBG pCO2 VBG HCO3 VBG Total CO2 VBG O2 Sat (Calc) VBG Base Excess VBG Potassium Glucose Lactate FiO2 Sodium Potassium Chloride Carbon Dioxide Anion Gap BUN Creatinine Est GFR ( Amer) Est GFR (Non-Af Amer) POC Glucose (mg/dL) 227 H Random Glucose Calcium Venous Blood Potassium Attending/Attestation - Attestation I have personally seen and examined this patient.: Yes I have fully participated in the care of the patient.: Yes I have reviewed all pertinent clinical information: Yes Notes (Text): 07/12/18 16:38 58 year old female with past medical history of gastric bypass and gastric lap- band surgery, kidney stones s/p recent ureteral stent, UTI, diabetes and hypertension who presents wt complaint of fever, chills and right flank pain. Found to have fever 101.4 and leukocytosis 13.[address] Green recommended to remove stent which was done in ER. UA/UCx/BCx is pending. Will start on iv antibiotics and request ID evaluation. Shauna Recinos MD Hospitalist.
--- NOTE | 2018-07-12 14:37 | RAD ---
Date of service: 07/12/2018 HISTORY: right flank pain, stone, recent litho COMPARISON: None available. TECHNIQUE: 1 view obtained. FINDINGS: BOWEL: Normal. No obstruction. No free air. BONES: Normal. OTHER FINDINGS: None. IMPRESSION: No active disease.
[2018-07-12] MEDS ORDERED: Oxycodone/Acetaminophen 5/325 mg Tab PO STA (15:20)
[2018-07-12] MEDS ORDERED: Dextrose 50% SYRINGE Inj (50 ml) IV PRN (15:20)
[2018-07-12] MEDS: Insulin Reg-LOW-Coverage SC SCH ×2 (16:06→22:47)
[2018-07-12] MEDS ORDERED: Sodium Chloride 0.9% 1,000 ML IV SCH (16:15)
[2018-07-12] MEDS: Oxycodone/Acetaminophen 5/325 mg Tab PO PRN (17:07)
[2018-07-12] MEDS: Aztreonam 1 Gm in NS 100mL 100 ML IVPB SCH ×2 (19:12→23:17)
[2018-07-12 19:24] LABS: PH,URINE 5.5 (4.7-8.0); URINE BILIRUBIN MODERATE (NEGATIVE); URINE BLOOD MODERATE (NEGATIVE); URINE GLUCOSE (UA) NEGATIVE (NEGATIVE); URINE LEUKOCYTE ESTERASE SMALL Leu/uL (NEGATIVE); URINE PROTEIN 100 mg/dL (<30 mg/dL); URINE UROBILINOGEN 0.2 E.U./dL (<1 E.U./dL)
[2018-07-12 19:26] LABS: URINE APPEARANCE SLIGHT-CLOUDY (CLEAR); URINE COLOR YELLOW (YELLOW)
[2018-07-12 19:36] LABS: URINE BACTERIA FEW /hpf; URINE EPITHELIAL CELLS 0 - 2 /hpf (0-5)
[2018-07-12] MEDS ORDERED: Sodium Chloride 0.9% 500 ML IV STA (21:06)
[2018-07-12] MEDS ORDERED: Pneumococcal 23-Valent Vaccine IM ONE (21:25)
[2018-07-12] MEDS ORDERED: Influenza Vaccine 60 mcg/0.5 mL SYR (4YR UP) IM ONE (21:25)
[2018-07-12] MEDS: Sodium Chloride 0.9% 2,000 ML IV STA ×2 (21:34→23:03)
[2018-07-12 21:56] LABS: BASO # 0.01 K/mm3 (0.0-2.0); BASO % 0.1 % (0.0-3.0); HEMOGLOBIN 10.9 g/dL (12.0-16.0); LYMPH % 9.1 % (22.0-35.0); MEAN CELL VOLUME 73.7 fl (80.0-105.0); MEAN CORPUSCULAR HEMOGLOBIN 22.4 pg (25.0-35.0); MEAN CORPUSCULAR HGB CONC 30.4 g/dl (31.0-37.0); MEAN PLATELET VOLUME 9.3 fl (7.0-11.0); MONO # 0.8 (0.1-0.6); MONO % 7.1 % (1.0-6.0); RBC 4.87 10^6/uL (3.5-6.1); RED CELL DISTRIBUTION WIDTH 16.6 % (11.5-14.5); WHITE BLOOD COUNT 10.8 10^3/uL (4.5-11.0)
[2018-07-12 21:58] LABS: VENOUS BLOOD GAS PO2 49 mm/Hg (30-55); VENOUS BLOOD PH 7.29 (7.32-7.43)
[2018-07-12] MEDS ORDERED: Aztreonam 1 Gm in NS 100mL 100 ML IVPB SCH (22:00)
[2018-07-12 22:21] LABS: TROPONIN I < 0.01 ng/mL
[2018-07-12 22:24] LABS: ALBUMIN 3.5 g/dL (3.0-4.8); ALT/SGPT 14 U/L (7-56); AST/SGOT 16 U/L (14-36); BLOOD UREA NITROGEN 21 mg/dL (7-21); CALCIUM 8.3 mg/dL (8.4-10.5); GFR NON-AFRICAN AMERICAN 33
[2018-07-13] MEDS ORDERED: Alum-Mag Hydrox-Simethicone Susp (30 mL) PO ONE
[2018-07-13] MEDS: metroNIDAZOLE IV 500 mg/100 ml 500 MG/100 ML BAG IVPB SCH ×3 (00:17→13:13)
[2018-07-13] MEDS ORDERED: Sodium Chloride 0.9% 1,000 ML IV STA ×2 (00:38→04:05)
[2018-07-13 01:03] LABS: VENOUS BLOOD GAS BASE EXCESS -5.3 mmol/L (0.0-2.0); VENOUS BLOOD GAS PO2 30 mm/Hg (30-55); VENOUS BLOOD PH 7.29 (7.32-7.43)
--- NOTE | 2018-07-13 02:37 | CP.PCM.CON ---
<Chito Braswell - Last Filed: 07/13/18 03:28> History of Present Illness - History of Present Illness History of Present Illness: Dr Braswell CCU Consult Note 58F PMHx Gastric bypass 10 years ago and gastric lap-band September 2017, recurrent kidney stones x 3 (1 spontanous passage in September 2017, 2 required extracorporeal shockwave lithotripsy prior), DM, HTN, PCN allergy c/o right flank pain with subjective fevers and chills for the past 4 days. She recently had a stent placed with urologist Dr Green on 07/10/18 (per records) for a ureteral kidney stone. She also endorsed nausea, loss of appetite, and inability to urinate (now resolved). She denied hematuria, chest pain, shortness of breath, diarrhea. ED attending took out the ureteral stent as advised by urologist Dr Green. This evening pt was found to be hypotensive 70/50 and with a temp of 105F. Pt was given 3L of IVF and antipyretics. Pt's temp came down to 100.9F however BP only leslie to 82/52. Pt transferred to ICU per night team. ROS Pos fevers chills, hypotension, dizzy Neg cp sob nv bleeding PMHx: HTN, DM - non-insulin dep, recurrent kidney stones x 3 (1 spontanous passage in September 2017, 2 required extracorporeal shockwave lithotripsy prior) PSHx: Gastric bypass 10 years ago and gastric lap-band September 2017, cholecystectomy, hysterectomy FHx: Denied SH: Worked in office. 2 sons. denies drink, smoke, drug All: Penicillin Med: glyburide 5 bid, crestor 10, olmesartan 40, bystolic 5 PMD = Dr Craig Urol = Dr Guevara Review of Systems - Review of Systems All systems: reviewed and no additional remarkable complaints except (as per HPI) Past Patient History - Infectious Disease Hx of Infectious Diseases: None - Tetanus Immunizations Tetanus Immunization: Unknown - Past Social History Smoking Status: Never Smoked - CARDIAC Hx Cardiac Disorders: Yes Hx Hypercholesterolemia: Yes Hx Hypertension: Yes Hx Pacemaker: No - PULMONARY Hx Respiratory Disorders: No Hx Asthma: No Hx Bronchitis: No Hx Chronic Obstructive Pulmonary Disease (COPD): No Hx Emphysema: No Hx Pneumonia: No Hx Respiratory Aspiration: No Hx Respiratory Tract Infection: No Hx Sleep Apnea: No Hx Tuberculosis: No - NEUROLOGICAL Hx Neurological Disorder: No - HEENT Hx HEENT Problems: No - RENAL Hx Chronic Kidney Disease: Yes (KIDNEY STENT PLACED- 07-03-18 AND 07-10-18) Hx Kidney Stones: Yes (X3,LITHOTRYPSY,SHOCKWAVE [place].) - ENDOCRINE/METABOLIC Hx Endocrine Disorders: Yes Hx Diabetes Mellitus Type 2: Yes - HEMATOLOGICAL/ONCOLOGICAL Hx Blood Disorders: Yes Hx Cancer: Yes - INTEGUMENTARY Hx Dermatological Problems: No - MUSCULOSKELETAL/RHEUMATOLOGICAL Hx Musculoskeletal Disorders: No Hx Falls: No - GASTROINTESTINAL Hx Gastrointestinal Disorders: Yes (GASTRIC LAP BAND SEPTEMBER 2017,GASTRIC BYPASS 10 YRS AGO.) - GENITOURINARY/GYNECOLOGICAL Hx Genitourinary Disorders: Yes Hx Urinary Tract Infection: Yes - PSYCHIATRIC Hx Psychophysiologic Disorder: No Hx Emotional Abuse: No Hx Physical Abuse: No Hx Substance Use: No - SURGICAL HISTORY Hx Surgeries: Yes (GASTRIC BYPASS 10 YRS AGO,GASTRIC LAP BAND SEPTEMBER 2017,HYSTERECTOMY) Hx Cardiac Catheterization: No Hx Cholecystectomy: Yes Hx Coronary Stent: No Other/Comment: lithotripsy - ANESTHESIA Hx Anesthesia Reactions: Yes Hx Malignant Hyperthermia: No Meds Allergies/Adverse Reactions: Allergies Allergy/AdvReac Type Severity Reaction Status Date / Time Penicillins Allergy ANAPHYLAXIS Verified 07/12/18 19:25 - Medications Medications: Current Medications Acetaminophen (Tylenol 325mg Tab) 650 mg PO Q4 PRN PRN Reason: Fever >100.4 F Atorvastatin Calcium (Lipitor) 40 mg PO HS ALEX Last Admin: 07/12/18 21:37 Dose: 40 mg Dextrose (Dextrose 50% Inj) 0 ml IV STAT PRN; Protocol PRN Reason: Hypoglycemia Protocol Heparin Sodium (Porcine) (Heparin) 5,000 units SC Q8 ALEX; Protocol Last Admin: 07/12/18 21:48 Dose: 5,000 units Dextrose (Dextrose 5% In Water 1000 Ml) 1,000 mls @ 0 mls/hr IV .Q0M PRN; Protocol PRN Reason: Hypoglycemia Protocol Sodium Chloride (Sodium Chloride 0.9%) 1,000 mls @ 100 mls/hr IV .Q10H ALEX Last Admin: 07/12/18 17:00 Dose: 100 mls/hr Aztreonam (Azactam 1 Gm) 100 mls @ 100 mls/hr IVPB Q8 ALEX; Protocol Last Admin: 07/12/18 23:17 Dose: 100 mls/hr Metronidazole (Flagyl) 500 mg in 100 mls @ 100 mls/hr IVPB Q8 ALEX; Protocol Last Admin: 07/13/18 00:17 Dose: 100 mls/hr Insulin Human Regular (Humulin R Low) 0 units SC ACHS ALEX; Protocol Last Admin: 07/12/18 22:47 Dose: Not Given Oxycodone/Acetaminophen (Percocet 5/325 Mg Tab) 1 tab PO Q6H PRN PRN Reason: Pain, severe (8-10) Stop: 07/15/18 15:31 Last Admin: 07/12/18 17:07 Dose: 1 tab Physical Exam - Additional Findings Additional findings: - Constitutional Appears: No Acute Distress - Head Exam Head Exam: ATRAUMATIC, NORMAL INSPECTION, NORMOCEPHALIC - Eye Exam Eye Exam: EOMI, Normal appearance, PERRL. absent: Scleral icterus Pupil Exam: NORMAL ACCOMODATION - ENT Exam ENT Exam: Mucous Membranes Moist - Neck Exam Neck exam: Positive for: Normal Inspection - Respiratory Exam Respiratory Exam: Clear to Auscultation Bilateral, NORMAL BREATHING PATTERN. a bsent: Rales, Rhonchi, Wheezes - Cardiovascular Exam Cardiovascular Exam: REGULAR RHYTHM, +S1, +S2 - GI/Abdominal Exam GI & Abdominal Exam: Normal Bowel Sounds, Soft. absent: Distended, Firm, Guarding, Rigid, Tenderness Additional comments: (+) suprapubic tenderness - Back Exam Back exam: CVA tenderness (R). absent: paraspinal tenderness, rash noted - Neurological Exam Neurological exam: Alert, CN II-XII Intact, Oriented x3 - Psychiatric Exam Psychiatric exam: Normal Affect, Normal Mood - Skin Skin Exam: Dry, Warm Results - Vital Signs Recent Vital Signs: Last Vital Signs Temp 100.9 F H 07/13/18 01:37 Pulse 87 07/13/18 00:48 Resp 20 07/12/18 21:05 BP 73/50 L 07/13/18 00:48 Pulse Ox 95 07/12/18 16:00 - Labs Result Diagrams: 07/12/18 21:50 07/12/18 21:50 Labs: Laboratory Results - last 24 hr 07/12/18 07/12/18 07/12/18 12:15 12:15 12:45 WBC 13.9 H D RBC 5.22 Hgb 11.7 L D Hct 38.4 MCV 73.6 L MCH 22.4 L MCHC 30.5 L RDW 16.3 H Plt Count 289 MPV 9.2 Neut % (Auto) 78.8 H Lymph % (Auto) 14.0 L [place] % (Auto) 7.0 H Eos % (Auto) 0.0 L Baso % (Auto) 0.2 Lymph # (Auto) 2.0 [place] # (Auto) 1.0 H Eos # (Auto) 0.0 Baso # (Auto) 0.03 Absolute Neuts (auto) 10.96 H pO2 28 L VBG pH 7.44 H VBG pCO2 36.0 L VBG HCO3 24.5 VBG Total CO2 25.6 VBG O2 Sat (Calc) 56.4 VBG Base Excess 0.6 VBG Potassium 4.4 Glucose 258 H Lactate 1.6 FiO2 21.0 Crit Value Called To Crit Value Called By Blood Gas Notified Time Sodium 131 L 131.0 L Potassium 4.5 Chloride 96 L 97.0 L Carbon Dioxide 24 Anion Gap 16 BUN 13 Creatinine 1.2 Est GFR ( Amer) 56 Est GFR (Non-Af Amer) 46 POC Glucose (mg/dL) Random Glucose 254 H Lactic Acid Calcium 9.1 Phosphorus Magnesium Total Bilirubin AST ALT Alkaline Phosphatase Troponin I Total Protein Albumin Globulin Albumin/Globulin Ratio Venous Blood Potassium 4.4 Urine Color Urine Appearance Urine pH Ur Specific [place] Urine Protein Urine Glucose (UA) Urine Ketones Urine Blood Urine Nitrate Urine Bilirubin Urine Urobilinogen Ur Leukocyte Esterase Urine RBC Urine WBC Ur Epithelial Cells Urine Bacteria Urine Other 07/12/18 07/12/18 07/12/18 16:01 19:10 19:10 WBC RBC Hgb Hct MCV MCH MCHC RDW Plt Count MPV Neut % (Auto) Lymph % (Auto) [place] % (Auto) Eos % (Auto) Baso % (Auto) Lymph # (Auto) [place] # (Auto) Eos # (Auto) Baso # (Auto) Absolute Neuts (auto) pO2 VBG pH VBG pCO2 VBG HCO3 VBG Total CO2 VBG O2 Sat (Calc) VBG Base Excess VBG Potassium Glucose Lactate FiO2 Crit Value Called To Crit Value Called By Blood Gas Notified Time Sodium Potassium Chloride Carbon Dioxide Anion Gap BUN Creatinine Est GFR ( Amer) Est GFR (Non-Af Amer) POC Glucose (mg/dL) 227 H Random Glucose Lactic Acid 1.2 Calcium Phosphorus Magnesium Total Bilirubin AST ALT Alkaline Phosphatase Troponin I Total Protein Albumin Globulin Albumin/Globulin Ratio Venous Blood Potassium Urine Color Yellow Urine Appearance Slight-cloudy Urine pH 5.5 Ur Specific [place] >= 1.030 Urine Protein 100 H Urine Glucose (UA) Negative Urine Ketones 15 H Urine Blood Moderate H Urine Nitrate Negative Urine Bilirubin Moderate H Urine Urobilinogen 0.2 Ur Leukocyte Esterase Small H Urine RBC 2 - 5 H Urine WBC 1 - 3 Ur Epithelial Cells 0 - 2 Urine Bacteria Few Urine Other Mucus 07/12/18 07/12/18 07/12/18 21:28 21:50 21:50 WBC 10.8 D RBC 4.87 Hgb 10.9 L Hct 35.9 L MCV 73.7 L MCH 22.4 L MCHC 30.4 L RDW 16.6 H Plt Count 233 MPV 9.3 Neut % (Auto) 83.7 H Lymph % (Auto) 9.1 L [place] % (Auto) 7.1 H Eos % (Auto) 0.0 L Baso % (Auto) 0.1 Lymph # (Auto) 1.0 L [place] # (Auto) 0.8 H Eos # (Auto) 0.0 Baso # (Auto) 0.01 Absolute Neuts (auto) 9.02 H pO2 49 VBG pH 7.29 L VBG pCO2 45.0 VBG HCO3 21.6 VBG Total CO2 23.0 VBG O2 Sat (Calc) 83.2 H VBG Base Excess -5.0 L VBG Potassium 3.6 Glucose 253 H Lactate 2.5 H FiO2 21.0 Crit Value Called To [place] barr Crit Value Called By Etq Blood Gas Notified Time 2157 Sodium 134.0 Potassium Chloride 99.0 Carbon Dioxide Anion Gap BUN Creatinine Est GFR ( Amer) Est GFR (Non-Af Amer) POC Glucose (mg/dL) 264 H Random Glucose Lactic Acid Calcium Phosphorus Magnesium Total Bilirubin AST ALT Alkaline Phosphatase Troponin I Total Protein Albumin Globulin Albumin/Globulin Ratio Venous Blood Potassium 3.6 Urine Color Urine Appearance Urine pH Ur Specific [place] Urine Protein Urine Glucose (UA) Urine Ketones Urine Blood Urine Nitrate Urine Bilirubin Urine Urobilinogen Ur Leukocyte Esterase Urine RBC Urine WBC Ur Epithelial Cells Urine Bacteria Urine Other 07/12/18 07/13/18 07/13/18 21:50 00:35 00:40 WBC RBC Hgb Hct MCV MCH MCHC RDW Plt Count MPV Neut % (Auto) Lymph % (Auto) [place] % (Auto) Eos % (Auto) Baso % (Auto) Lymph # (Auto) [place] # (Auto) Eos # (Auto) Baso # (Auto) Absolute Neuts (auto) pO2 30 VBG pH 7.29 L VBG pCO2 44.0 VBG HCO3 21.2 VBG Total CO2 22.6 VBG O2 Sat (Calc) 59.3 VBG Base Excess -5.3 L VBG Potassium 4.2 Glucose 291 H Lactate 1.1 FiO2 21.0 Crit Value Called To Crit Value Called By Blood Gas Notified Time Sodium 133 133.0 Potassium 3.7 Chloride 99 102.0 Carbon Dioxide 21 Anion Gap 16 BUN 21 Creatinine 1.6 H Est GFR ( Amer) 40 Est GFR (Non-Af Amer) 33 POC Glucose (mg/dL) Random Glucose 243 H Lactic Acid 1.0 Calcium 8.3 L Phosphorus 2.4 L Magnesium 1.6 L Total Bilirubin 0.7 AST 16 ALT 14 Alkaline Phosphatase 83 Troponin I < 0.01 Total Protein 6.9 Albumin 3.5 Globulin 3.4 Albumin/Globulin Ratio 1.0 L Venous Blood Potassium 4.2 Urine Color Urine Appearance Urine pH Ur Specific [place] Urine Protein Urine Glucose (UA) Urine Ketones Urine Blood Urine Nitrate Urine Bilirubin Urine Urobilinogen Ur Leukocyte Esterase Urine RBC Urine WBC Ur Epithelial Cells Urine Bacteria Urine Other Assessment & Plan - Assessment and Plan (Free Text) Assessment: Ms Obrien, 58F, with PMHx Gastric bypass 10 years ago and gastric lap-band September 2017, recurrent kidney stones x 3 (1 spontanous passage in September 2017, 2 required extracorporeal shockwave lithotripsy prior), DM, HTN, PCN allergy c/o right flan k pain with subjective fevers and chills for the past 4 days, trasferred to ICU for signs of Septic Shock. Of note, she recently had a ureteral stent placed by Dr Green. PLAN NEURO -monitor mental status -AAOx3 CARDIO VASC #HTN -we will hold anti-hypertensive meds at this time due to borderline low BP, once BP improves we can resume home meds by converting home meds to lopressor 12.5mg bid and losartan 100mg po qd #HLD -convert home med to lipitor 40mg po hs ID #Septic Shock -aztreonam 1g ivpb q8h -flagyl 500 q8 ivpb -Tmax 105F and Hypotensive 70/50 -cystoscopy extraction pigtail stent with urologist Dr Jose Green 07/10/18 (per chart) -f/u abdomen flat plate -percocet 5/325mg 1 tab po q6h prn for severe pain -3L NS bolus -NS maintenance @ 150 -f/u blood cx, urine cx, UA -infectious disease consult, Dr Bonilla -urologist Dr Jose Green ENDO #Diabetes Mellitus -latest a1c from 06/2018 was 8.6 -consistent carb diet -RISS low protocol -hypoglycemia protocol HEME #Anemia -microcytic anemia likely due to impaired absorption 2/2 Gastric bypass/lap band -trend h/h -outpatient f/u RENAL -monitor I&Os -monitor BUN/Cr -continue NS@ 150 PPx -heparin 5000u sc q8 -SCDs <Janusz Kimbrough - Last Filed: 07/13/18 20:06> Meds - Medications Medications: Current Medications Acetaminophen (Tylenol 325mg Tab) 650 mg PO Q4 PRN PRN Reason: Fever >100.4 F Last Admin: 07/13/18 16:06 Dose: 650 mg Atorvastatin Calcium (Lipitor) 40 mg PO HS ALEX Last Admin: 07/12/18 21:37 Dose: 40 mg Dextrose (Dextrose 50% Inj) 0 ml IV STAT PRN; Protocol PRN Reason: Hypoglycemia Protocol Dextrose (Dextrose 50% Inj) 0 ml IV STAT PRN; Protocol PRN Reason: Hypoglycemia Protocol Heparin Sodium (Porcine) (Heparin) 5,000 units SC Q8 ALEX; Protocol Last Admin: 07/13/18 13:13 Dose: 5,000 units Hydrocortisone Sodium Succinate (Solu-Cortef) 50 mg IVP Q12H [facility] Dextrose (Dextrose 5% In Water 1000 Ml) 1,000 mls @ 0 mls/hr IV .Q0M PRN; Protocol PRN Reason: Hypoglycemia Protocol NOREPINEPHRINE BIT/0.9 % NACL (Levophed 4 Mg/ 250 Ml Ns Premixed) 4 mg in 250 mls @ 15 mls/hr IV .[id number] PRN; Protocol PRN Reason: TITRATE PER MD ORDER Last Titration: 07/13/18 14:35 Dose: 0 mcg/min, 0 mls/hr Dextrose (Dextrose 5% In Water 1000 Ml) 1,000 mls @ 0 mls/hr IV .Q0M PRN; Protocol PRN Reason: Hypoglycemia Protocol Insulin Human Regular 100 (units/ Sodium Chloride) 100 mls @ 4 mls/hr IV .Q24H PRN; Protocol PRN Reason: TITRATE PER MD ORDER Last Titration: 07/13/18 19:40 Dose: 4 units/hr, 4 mls/hr Lactated Ringer's (Lactated Ringer's) 1,000 mls @ 150 mls/hr IV .Q6H40M ALEX Last Admin: 07/13/18 10:04 Dose: 150 mls/hr Meropenem (Merrem Iv 1 Gm Premix) 1 gm in 50 mls @ 100 mls/hr IVPB Q12 ALEX; Protocol Stop: 07/21/18 19:01 Midodrine (Proamatine) 10 mg PO TID ALEX Last Admin: 07/13/18 17:58 Dose: Not Given Oxycodone/Acetaminophen (Percocet 5/325 Mg Tab) 1 tab PO Q6H PRN PRN Reason: Pain, severe (8-10) Stop: 07/15/18 15:31 Last Admin: 07/13/18 08:59 Dose: 1 tab Results - Vital Signs Recent Vital Signs: Last Vital Signs Temp 99.7 F H 07/13/18 17:06 Pulse 79 07/13/18 19:30 Resp 22 07/13/18 19:30 BP 97/53 L 07/13/18 19:23 Pulse Ox 99 07/13/18 19:30 - Labs Result Diagrams: 07/13/18 07:20 07/13/18 07:20 Labs: Laboratory Results - last 24 hr 07/12/18 07/12/18 07/12/18 21:28 21:50 21:50 WBC 10.8 D RBC 4.87 Hgb 10.9 L Hct 35.9 L MCV 73.7 L MCH 22.4 L MCHC 30.4 L RDW 16.6 H Plt Count 233 MPV 9.3 Neut % (Auto) 83.7 H Lymph % (Auto) 9.1 L [place] % (Auto) 7.1 H Eos % (Auto) 0.0 L Baso % (Auto) 0.1 Lymph # (Auto) 1.0 L [place] # (Auto) 0.8 H Eos # (Auto) 0.0 Baso # (Auto) 0.01 Absolute Neuts (auto) 9.02 H Neutrophils % (Manual) Band Neutrophils % Lymphocytes % (Manual) Monocytes % (Manual) Platelet Evaluation Polychromasia Hypochromasia Poikilocytosis (manual Anisocytosis (manual) Microcytosis (manual) pO2 49 VBG pH 7.29 L VBG pCO2 45.0 VBG HCO3 21.6 VBG Total CO2 23.0 VBG O2 Sat (Calc) 83.2 H VBG Base Excess -5.0 L VBG Potassium 3.6 Sodium 134.0 Chloride 99.0 Glucose 253 H Lactate 2.5 H FiO2 21.0 Crit Value Called To [place] barr Crit Value Called By Etq Blood Gas Notified Time 2158 Potassium Carbon Dioxide Anion Gap BUN Creatinine Est GFR ( Amer) Est GFR (Non-Af Amer) POC Glucose (mg/dL) 264 H Random Glucose Lactic Acid Calcium Phosphorus Magnesium Total Bilirubin AST ALT Alkaline Phosphatase Troponin I Total Protein Albumin Globulin Albumin/Globulin Ratio Amylase Lipase Procalcitonin Venous Blood Potassium 3.6 07/12/18 07/13/18 07/13/18 21:50 00:35 00:40 WBC RBC Hgb Hct MCV MCH MCHC RDW Plt Count MPV Neut % (Auto) Lymph % (Auto) [place] % (Auto) Eos % (Auto) Baso % (Auto) Lymph # (Auto) [place] # (Auto) Eos # (Auto) Baso # (Auto) Absolute Neuts (auto) Neutrophils % (Manual) Band Neutrophils % Lymphocytes % (Manual) Monocytes % (Manual) Platelet Evaluation Polychromasia Hypochromasia Poikilocytosis (manual Anisocytosis (manual) Microcytosis (manual) pO2 30 VBG pH 7.29 L VBG pCO2 44.0 VBG HCO3 21.2 VBG Total CO2 22.6 VBG O2 Sat (Calc) 59.3 VBG Base Excess -5.3 L VBG Potassium 4.2 Sodium 133 133.0 Chloride 99 102.0 Glucose 291 H Lactate 1.1 FiO2 21.0 Crit Value Called To Crit Value Called By Blood Gas Notified Time Potassium 3.7 Carbon Dioxide 21 Anion Gap 16 BUN 21 Creatinine 1.6 H Est GFR ( Amer) 40 Est GFR (Non-Af Amer) 33 POC Glucose (mg/dL) Random Glucose 243 H Lactic Acid 1.0 Calcium 8.3 L Phosphorus 2.4 L Magnesium 1.6 L Total Bilirubin 0.7 AST 16 ALT 14 Alkaline Phosphatase 83 Troponin I < 0.01 Total Protein 6.9 Albumin 3.5 Globulin 3.4 Albumin/Globulin Ratio 1.0 L Amylase Lipase Procalcitonin Venous Blood Potassium 4.2 07/13/18 07/13/18 07/13/18 07:20 07:20 07:20 WBC 13.0 H D RBC 3.87 Hgb 8.6 L D Hct 28.7 L MCV 74.2 L MCH 22.2 L MCHC 30.0 L RDW 16.8 H Plt Count 211 MPV 9.5 Neut % (Auto) 91.7 H Lymph % (Auto) 3.8 L [place] % (Auto) 4.4 Eos % (Auto) 0.0 L Baso % (Auto) 0.1 Lymph # (Auto) 0.5 L [place] # (Auto) 0.6 Eos # (Auto) 0.0 Baso # (Auto) 0.01 Absolute Neuts (auto) 11.93 H Neutrophils % (Manual) 91 H Band Neutrophils % 2 Lymphocytes % (Manual) 4 L Monocytes % (Manual) 3 Platelet Evaluation Normal Polychromasia Slight Hypochromasia 1+ Poikilocytosis (manual Slight Anisocytosis (manual) 1+ Microcytosis (manual) 1+ pO2 VBG pH VBG pCO2 VBG HCO3 VBG Total CO2 VBG O2 Sat (Calc) VBG Base Excess VBG Potassium Sodium 135 Chloride 108 H Glucose Lactate FiO2 Crit Value Called To Crit Value Called By Blood Gas Notified Time Potassium 3.7 Carbon Dioxide 18 L Anion Gap 13 BUN 23 H Creatinine 1.8 H Est GFR ( Amer) 35 Est GFR (Non-Af Amer) 29 POC Glucose (mg/dL) Random Glucose 264 H Lactic Acid Calcium 6.7 L* Phosphorus Magnesium Total Bilirubin 0.5 AST 18 ALT 16 Alkaline Phosphatase 60 Troponin I 0.02 D Total Protein 5.3 L Albumin 2.7 L Globulin 2.6 Albumin/Globulin Ratio 1.1 Amylase < 30 L Lipase 66 Procalcitonin 23.97 H Venous Blood Potassium 07/13/18 07/13/18 07/13/18 08:49 10:30 10:44 WBC RBC Hgb Hct MCV MCH MCHC RDW Plt Count MPV Neut % (Auto) Lymph % (Auto) [place] % (Auto) Eos % (Auto) Baso % (Auto) Lymph # (Auto) [place] # (Auto) Eos # (Auto) Baso # (Auto) Absolute Neuts (auto) Neutrophils % (Manual) Band Neutrophils % Lymphocytes % (Manual) Monocytes % (Manual) Platelet Evaluation Polychromasia Hypochromasia Poikilocytosis (manual Anisocytosis (manual) Microcytosis (manual) pO2 36 VBG pH 7.31 L VBG pCO2 33.0 L VBG HCO3 16.6 L VBG Total CO2 17.6 L VBG O2 Sat (Calc) 74.1 H VBG Base Excess -8.6 L VBG Potassium 3.9 Sodium 134.0 Chloride 106.0 Glucose 299 H Lactate 1.2 FiO2 21.0 Crit Value Called To Crit Value Called By Blood Gas Notified Time Potassium Carbon Dioxide Anion Gap BUN Creatinine Est GFR ( Amer) Est GFR (Non-Af Amer) POC Glucose (mg/dL) 309 H 309 H Random Glucose Lactic Acid Calcium Phosphorus Magnesium Total Bilirubin AST ALT Alkaline Phosphatase Troponin I Total Protein Albumin Globulin Albumin/Globulin Ratio Amylase Lipase Procalcitonin Venous Blood Potassium 3.9 07/13/18 07/13/18 07/13/18 11:52 12:57 14:29 WBC RBC Hgb Hct MCV MCH MCHC RDW Plt Count MPV Neut % (Auto) Lymph % (Auto) [place] % (Auto) Eos % (Auto) Baso % (Auto) Lymph # (Auto) [place] # (Auto) Eos # (Auto) Baso # (Auto) Absolute Neuts (auto) Neutrophils % (Manual) Band Neutrophils % Lymphocytes % (Manual) Monocytes % (Manual) Platelet Evaluation Polychromasia Hypochromasia Poikilocytosis (manual Anisocytosis (manual) Microcytosis (manual) pO2 VBG pH VBG pCO2 VBG HCO3 VBG Total CO2 VBG O2 Sat (Calc) VBG Base Excess VBG Potassium Sodium Chloride Glucose Lactate FiO2 Crit Value Called To Crit Value Called By Blood Gas Notified Time Potassium Carbon Dioxide Anion Gap BUN Creatinine Est GFR ( Amer) Est GFR (Non-Af Amer) POC Glucose (mg/dL) 292 H 213 H 174 H Random Glucose Lactic Acid Calcium Phosphorus Magnesium Total Bilirubin AST ALT Alkaline Phosphatase Troponin I Total Protein Albumin Globulin Albumin/Globulin Ratio Amylase Lipase Procalcitonin Venous Blood Potassium 07/13/18 07/13/18 07/13/18 15:05 15:56 17:07 WBC RBC Hgb Hct MCV MCH MCHC RDW Plt Count MPV Neut % (Auto) Lymph % (Auto) [place] % (Auto) Eos % (Auto) Baso % (Auto) Lymph # (Auto) [place] # (Auto) Eos # (Auto) Baso # (Auto) Absolute Neuts (auto) Neutrophils % (Manual) Band Neutrophils % Lymphocytes % (Manual) Monocytes % (Manual) Platelet Evaluation Polychromasia Hypochromasia Poikilocytosis (manual Anisocytosis (manual) Microcytosis (manual) pO2 VBG pH VBG pCO2 VBG HCO3 VBG Total CO2 VBG O2 Sat (Calc) VBG Base Excess VBG Potassium Sodium Chloride Glucose Lactate FiO2 Crit Value Called To Crit Value Called By Blood Gas Notified Time Potassium Carbon Dioxide Anion Gap BUN Creatinine Est GFR ( Amer) Est GFR (Non-Af Amer) POC Glucose (mg/dL) 178 H 158 H 185 H Random Glucose Lactic Acid Calcium Phosphorus Magnesium Total Bilirubin AST ALT Alkaline Phosphatase Troponin I Total Protein Albumin Globulin Albumin/Globulin Ratio Amylase Lipase Procalcitonin Venous Blood Potassium 07/13/18 07/13/18 18:05 19:20 WBC RBC Hgb Hct MCV MCH MCHC RDW Plt Count MPV Neut % (Auto) Lymph % (Auto) [place] % (Auto) Eos % (Auto) Baso % (Auto) Lymph # (Auto) [place] # (Auto) Eos # (Auto) Baso # (Auto) Absolute Neuts (auto) Neutrophils % (Manual) Band Neutrophils % Lymphocytes % (Manual) Monocytes % (Manual) Platelet Evaluation Polychromasia Hypochromasia Poikilocytosis (manual Anisocytosis (manual) Microcytosis (manual) pO2 VBG pH VBG pCO2 VBG HCO3 VBG Total CO2 VBG O2 Sat (Calc) VBG Base Excess VBG Potassium Sodium Chloride Glucose Lactate FiO2 Crit Value Called To Crit Value Called By Blood Gas Notified Time Potassium Carbon Dioxide Anion Gap BUN Creatinine Est GFR ( Amer) Est GFR (Non-Af Amer) POC Glucose (mg/dL) 217 H 226 H Random Glucose Lactic Acid Calcium Phosphorus Magnesium Total Bilirubin AST ALT Alkaline Phosphatase Troponin I Total Protein Albumin Globulin Albumin/Globulin Ratio Amylase Lipase Procalcitonin Venous Blood Potassium Attending/Attestation - Attestation I have personally seen and examined this patient.: Yes I have fully participated in the care of the patient.: Yes I have reviewed all pertinent clinical information: Yes
[2018-07-13] MEDS ORDERED: NOREPINEPHRINE BIT/0.9 % NACL 4 MG/250 ML BAG IV PRN (03:44)
--- NOTE | 2018-07-13 04:03 | PCM.PROC ---
<Inderjit Manuel - Last Filed: 07/13/18 04:02> Procedures Attestation:: I certify that I have explained the specified Operation(s) or Procedure(s), risks, benefits and reasonable alternatives to the Patient and/or other person responsible. The opportunity was given to ask questions and all questions answered - Central Line Placement Right Internal Jugular Triple Lumen Catheter Aseptic technique was employed throughout the procedure: Hand Hygiene done prior to procedure, Full sterile barriers (mask, hair cover, sterile gown, sterile gloves), Full body sterile drape, Chloraprep Antiseptic: 30 second prep for IJ or SC sites Pt. Placed on Pulse Ox Monitor: Yes Central Line Prep: Chlorhexidine-Alcohol Combination Local Anesthesia Used: Lidocaine 1% Amount of Anesthesia Used (mls): 6 Ultrasound Used for Placement: Yes Central Line Lumen Inserted: triple Central Line Length: 20 cm Post Procedure: Sutured in Place, Good Blood Return, All Ports Aspirated, Flushed, Capped, Sterile Dressing Applied Secured by: Suture Post procedure dressing: Clear vapor permeable, Chlorhexidine disc (Biopatch) Post Procedure X-Ray: Yes Patient Tolerated Procedure: Well, No Complications Immediate Complications: None Additional Comments: Overseen by attending, Dr. Kimbrough, and senior resident, Dr. Chew. <Janusz Kimbrough - Last Filed: 07/13/18 20:06> Attending/Attestation - Attestation I have personally seen and examined this patient.: Yes I have fully participated in the care of the patient.: Yes I have reviewed all pertinent clinical information, including history, physical exam and plan: Yes Notes (Text): 07/13/18 20:05 cxr-No pneumothorax.
[2018-07-13] MEDS ORDERED: Sodium Chloride 0.9% 1,000 ML IV SCH (04:09)
[2018-07-13] MEDS: Aztreonam 1 Gm in NS 100mL 100 ML IVPB SCH ×2 (05:37→13:13)
--- NOTE | 2018-07-13 06:47 | PCM.URO ---
Urology Progress Note - Objective Lab Studies: Reviewed (full note to be dictated dx:urosepsis, pt is s/p cysto/ ureteroscopy/ 07/10, with voiding dysfunction and dislodged ureteral stent secondary which was now removed yesterday and pt has a luis catheter in place plans: fluid resusitation , levofed, etc as per icu team , (pt very behind in) antibiotics as per ID-- pt had one gram of rocephin at the the time of her ureteroscopy 07/10 and was discharged home on levaquin one dose po on sunday and one dose on From gu standpoint : maintain luis, obtain ct scan of abdomen /pelvis no iv and no oral contrast/ (very unlikely that there are any obstructing stones, pt might have some stone fragments but not likely obstructing and most likely will not need any gu procedures) from gu standpoint pt can eat) Lab Results Last 24 Hours: Laboratory Results - last 24 hr 07/12/18 07/12/18 07/12/18 12:15 12:15 12:45 WBC 13.9 H D RBC 5.22 Hgb 11.7 L D Hct 38.4 MCV 73.6 L MCH 22.4 L MCHC 30.5 L RDW 16.3 H Plt Count 289 MPV 9.2 Neut % (Auto) 78.8 H Lymph % (Auto) 14.0 L [place] % (Auto) 7.0 H Eos % (Auto) 0.0 L Baso % (Auto) 0.2 Lymph # (Auto) 2.0 [place] # (Auto) 1.0 H Eos # (Auto) 0.0 Baso # (Auto) 0.03 Absolute Neuts (auto) 10.96 H pO2 28 L VBG pH 7.44 H VBG pCO2 36.0 L VBG HCO3 24.5 VBG Total CO2 25.6 VBG O2 Sat (Calc) 56.4 VBG Base Excess 0.6 VBG Potassium 4.4 Glucose 258 H Lactate 1.6 FiO2 21.0 Crit Value Called To Crit Value Called By Blood Gas Notified Time Sodium 131 L 131.0 L Potassium 4.5 Chloride 96 L 97.0 L Carbon Dioxide 24 Anion Gap 16 BUN 13 Creatinine 1.2 Est GFR ( Amer) 56 Est GFR (Non-Af Amer) 46 POC Glucose (mg/dL) Random Glucose 254 H Lactic Acid Calcium 9.1 Phosphorus Magnesium Total Bilirubin AST ALT Alkaline Phosphatase Troponin I Total Protein Albumin Globulin Albumin/Globulin Ratio Venous Blood Potassium 4.4 Urine Color Urine Appearance Urine pH Ur Specific [place] Urine Protein Urine Glucose (UA) Urine Ketones Urine Blood Urine Nitrate Urine Bilirubin Urine Urobilinogen Ur Leukocyte Esterase Urine RBC Urine WBC Ur Epithelial Cells Urine Bacteria Urine Other 07/12/18 07/12/18 07/12/18 16:01 19:10 19:10 WBC RBC Hgb Hct MCV MCH MCHC RDW Plt Count MPV Neut % (Auto) Lymph % (Auto) [place] % (Auto) Eos % (Auto) Baso % (Auto) Lymph # (Auto) [place] # (Auto) Eos # (Auto) Baso # (Auto) Absolute Neuts (auto) pO2 VBG pH VBG pCO2 VBG HCO3 VBG Total CO2 VBG O2 Sat (Calc) VBG Base Excess VBG Potassium Glucose Lactate FiO2 Crit Value Called To Crit Value Called By Blood Gas Notified Time Sodium Potassium Chloride Carbon Dioxide Anion Gap BUN Creatinine Est GFR ( Amer) Est GFR (Non-Af Amer) POC Glucose (mg/dL) 227 H Random Glucose Lactic Acid 1.2 Calcium Phosphorus Magnesium Total Bilirubin AST ALT Alkaline Phosphatase Troponin I Total Protein Albumin Globulin Albumin/Globulin Ratio Venous Blood Potassium Urine Color Yellow Urine Appearance Slight-cloudy Urine pH 5.5 Ur Specific [place] >= 1.030 Urine Protein 100 H Urine Glucose (UA) Negative Urine Ketones 15 H Urine Blood Moderate H Urine Nitrate Negative Urine Bilirubin Moderate H Urine Urobilinogen 0.2 Ur Leukocyte Esterase Small H Urine RBC 2 - 5 H Urine WBC 1 - 3 Ur Epithelial Cells 0 - 2 Urine Bacteria Few Urine Other Mucus 07/12/18 07/12/18 07/12/18 21:28 21:50 21:50 WBC 10.8 D RBC 4.87 Hgb 10.9 L Hct 35.9 L MCV 73.7 L MCH 22.4 L MCHC 30.4 L RDW 16.6 H Plt Count 233 MPV 9.3 Neut % (Auto) 83.7 H Lymph % (Auto) 9.1 L [place] % (Auto) 7.1 H Eos % (Auto) 0.0 L Baso % (Auto) 0.1 Lymph # (Auto) 1.0 L [place] # (Auto) 0.8 H Eos # (Auto) 0.0 Baso # (Auto) 0.01 Absolute Neuts (auto) 9.02 H pO2 49 VBG pH 7.29 L VBG pCO2 45.0 VBG HCO3 21.6 VBG Total CO2 23.0 VBG O2 Sat (Calc) 83.2 H VBG Base Excess -5.0 L VBG Potassium 3.6 Glucose 253 H Lactate 2.5 H FiO2 21.0 Crit Value Called To [place] Crit Value Called By Etq Blood Gas Notified Time 215 Sodium 134.0 Potassium Chloride 99.0 Carbon Dioxide Anion Gap BUN Creatinine Est GFR ( Amer) Est GFR (Non-Af Amer) POC Glucose (mg/dL) 264 H Random Glucose Lactic Acid Calcium Phosphorus Magnesium Total Bilirubin AST ALT Alkaline Phosphatase Troponin I Total Protein Albumin Globulin Albumin/Globulin Ratio Venous Blood Potassium 3.6 Urine Color Urine Appearance Urine pH Ur Specific [place] Urine Protein Urine Glucose (UA) Urine Ketones Urine Blood Urine Nitrate Urine Bilirubin Urine Urobilinogen Ur Leukocyte Esterase Urine RBC Urine WBC Ur Epithelial Cells Urine Bacteria Urine Other 07/12/18 07/13/18 07/13/18 21:50 00:35 00:40 WBC RBC Hgb Hct MCV MCH MCHC RDW Plt Count MPV Neut % (Auto) Lymph % (Auto) [place] % (Auto) Eos % (Auto) Baso % (Auto) Lymph # (Auto) [place] # (Auto) Eos # (Auto) Baso # (Auto) Absolute Neuts (auto) pO2 30 VBG pH 7.29 L VBG pCO2 44.0 VBG HCO3 21.2 VBG Total CO2 22.6 VBG O2 Sat (Calc) 59.3 VBG Base Excess -5.3 L VBG Potassium 4.2 Glucose 291 H Lactate 1.1 FiO2 21.0 Crit Value Called To Crit Value Called By Blood Gas Notified Time Sodium 133 133.0 Potassium 3.7 Chloride 99 102.0 Carbon Dioxide 21 Anion Gap 16 BUN 21 Creatinine 1.6 H Est GFR ( Amer) 40 Est GFR (Non-Af Amer) 33 POC Glucose (mg/dL) Random Glucose 243 H Lactic Acid 1.0 Calcium 8.3 L Phosphorus 2.4 L Magnesium 1.6 L Total Bilirubin 0.7 AST 16 ALT 14 Alkaline Phosphatase 83 Troponin I < 0.01 Total Protein 6.9 Albumin 3.5 Globulin 3.4 Albumin/Globulin Ratio 1.0 L Venous Blood Potassium 4.2 Urine Color Urine Appearance Urine pH Ur Specific [place] Urine Protein Urine Glucose (UA) Urine Ketones Urine Blood Urine Nitrate Urine Bilirubin Urine Urobilinogen Ur Leukocyte Esterase Urine RBC Urine WBC Ur Epithelial Cells Urine Bacteria Urine Other Intake & Output: Intake & Output 07/12/18 07/12/18 07/13/18 06:59 18:59 06:59 Intake Total 420 Balance 420 Weight 210 lb 210 lb Intake: Oral 420 Other: Voiding Method Toilet # Voids Urine, Voided 2 # Bowel Movements 0 Vital Signs: Vital Signs - 24 hr 07/12/18 07/12/18 07/12/18 12:01 13:51 15:13 Temperature 100.9 F H 100.7 F H 101.4 F H Pulse Rate 101 H 101 H 95 H Respiratory 18 18 18 Rate Blood Pressure 118/63 116/61 110/63 O2 Sat by Pulse 95 95 95 Oximetry 07/12/18 07/12/18 07/12/18 16:00 16:31 18:25 Temperature 102.2 F H 102 F H 102.8 F H Pulse Rate 97 H Respiratory 20 Rate Blood Pressure 125/78 O2 Sat by Pulse 95 Oximetry 07/12/18 07/12/18 07/12/18 18:30 19:20 20:11 Temperature 102.6 F H 102.6 F H 104.6 F H Pulse Rate Respiratory Rate Blood Pressure 108/69 O2 Sat by Pulse Oximetry 07/12/18 07/12/18 07/12/18 21:00 21:05 22:00 Temperature 103.8 F H 105.2 F H Pulse Rate Respiratory 20 Rate Blood Pressure 87/53 L 109/72 O2 Sat by Pulse Oximetry 07/12/18 07/13/18 07/13/18 23:58 00:48 01:37 Temperature 102.1 F H 102.1 F H 100.9 F H Pulse Rate 87 Respiratory Rate Blood Pressure 88/57 L 73/50 L O2 Sat by Pulse Oximetry 07/13/18 07/13/18 07/13/18 02:47 02:48 02:49 Temperature Pulse Rate 90 89 87 Respiratory 24 22 22 Rate Blood Pressure 92/48 L 82/47 L O2 Sat by Pulse 97 Oximetry 07/13/18 07/13/1807/13/19 02:50 02:51 02:52 Temperature Pulse Rate 85 84 Respiratory 18 23 Rate Blood Pressure 87/46 L 80/40 L 87/38 L O2 Sat by Pulse 97 97 Oximetry 07/13/18 07/13/18 07/13/18 02:53 03:00 03:03 Temperature Pulse Rate 82 82 83 Respiratory 17 22 18 Rate Blood Pressure 80/32 L O2 Sat by Pulse 97 95 97 Oximetry 07/13/18 07/13/18 07/13/18 03:04 03:05 03:06 Temperature Pulse Rate 82 81 81 Respiratory 32 H 21 19 Rate Blood Pressure 77/42 L 74/39 L 82/37 L O2 Sat by Pulse Oximetry 07/13/18 07/13/18 07/13/18 03:07 03:08 03:10 Temperature Pulse Rate 81 81 Respiratory 17 20 Rate Blood Pressure 78/40 L 76/40 L O2 Sat by Pulse 96 96 Oximetry 07/13/18 07/13/18 07/13/18 03:20 03:30 03:40 Temperature Pulse Rate 82 85 87 Respiratory 19 21 18 Rate Blood Pressure O2 Sat by Pulse 98 100 99 Oximetry 07/13/18 07/13/18 07/13/18 03:50 04:00 04:01 Temperature Pulse Rate 86 89 Respiratory 21 27 H Rate Blood Pressure 98/48 L 87/43 L O2 Sat by Pulse 99 99 Oximetry 07/13/18 07/13/18 07/13/18 04:02 04:03 04:04 Temperature Pulse Rate 88 87 88 Respiratory 18 21 20 Rate Blood Pressure 91/32 L 77/46 L 81/46 L O2 Sat by Pulse 99 98 98 Oximetry 07/13/18 07/13/18 07/13/18 04:05 04:10 04:20 Temperature Pulse Rate 87 90 87 Respiratory 21 19 Rate Blood Pressure 83/44 L O2 Sat by Pulse 99 99 98 Oximetry 07/13/18 07/13/18 07/13/18 04:21 04:30 04:40 Temperature Pulse Rate 89 88 Respiratory 22 22 Rate Blood Pressure 85/52 L O2 Sat by Pulse 97 98 Oximetry 07/13/18 07/13/18 07/13/18 04:41 04:50 05:00 Temperature Pulse Rate 87 89 90 Respiratory 21 21 19 Rate Blood Pressure 90/52 L O2 Sat by Pulse 100 100 98 Oximetry 07/13/18 07/13/18 07/13/18 05:01 05:10 05:20 Temperature Pulse Rate 89 93 H 92 H Respiratory 21 20 29 H Rate Blood Pressure 87/56 L O2 Sat by Pulse 97 100 98 Oximetry 07/13/18 05:21 Temperature Pulse Rate 92 H Respiratory 22 Rate Blood Pressure 89/55 L O2 Sat by Pulse 95 Oximetry
[2018-07-13] MEDS ORDERED: Magnesium Sulfate 2 gm/50 ml 2 GM/50 ML BAG IVPB ONE (07:10)
[2018-07-13 08:05] LABS: BASO # 0.01 K/mm3 (0.0-2.0); BASO % 0.1 % (0.0-3.0); LYMPH # 0.5 (1.2-3.4); LYMPH % 3.8 % (22.0-35.0); MEAN CELL VOLUME 74.2 fl (80.0-105.0); MEAN CORPUSCULAR HEMOGLOBIN 22.2 pg (25.0-35.0); MEAN PLATELET VOLUME 9.5 fl (7.0-11.0); MONO # 0.6 (0.1-0.6); MONO % 4.4 % (1.0-6.0); PLATELET COUNT 211 10^3/uL (120.0-450.0); RBC 3.87 10^6/uL (3.5-6.1); RED CELL DISTRIBUTION WIDTH 16.8 % (11.5-14.5)
[2018-07-13 08:07] LABS: TROPONIN I 0.02 ng/mL
[2018-07-13 08:08] LABS: ALB/GLOB RATIO 1.1 (1.1-1.8); ALBUMIN 2.7 g/dL (3.0-4.8); ALT/SGPT 16 U/L (7-56); AMYLASE < 30 U/L (35-125); AST/SGOT 18 U/L (14-36); BLOOD UREA NITROGEN 23 mg/dL (7-21); CALCIUM 6.7 mg/dL (8.4-10.5); GFR NON-AFRICAN AMERICAN 29; LIPASE 66 U/L (23-300)
--- NOTE | 2018-07-13 08:23 | RAD ---
Date of service: 07/12/2018 HISTORY: fevers COMPARISON: 06/25/2018 TECHNIQUE: 1 view obtained. FINDINGS: LUNGS: No active pulmonary disease. PLEURA: No significant pleural effusion identified, no pneumothorax apparent. CARDIOVASCULAR: No aortic atherosclerotic calcification present. Normal cardiac size. No pulmonary vascular congestion. OSSEOUS STRUCTURES: No significant abnormalities. VISUALIZED UPPER ABDOMEN: Normal. OTHER FINDINGS: None. IMPRESSION: No active disease.
[2018-07-13 08:35] LABS: HEMOGLOBIN 8.6 g/dL (12.0-16.0)
--- NOTE | 2018-07-13 08:35 | RAD ---
Date of service: 07/13/2018 HISTORY: hypotension, central line placed in IJ COMPARISON: 07/12/2018 TECHNIQUE: 1 view obtained. FINDINGS: LUNGS: No active pulmonary disease. There is a right IJ line terminating in the SVC. There is no pneumothorax PLEURA: No significant pleural effusion identified, no pneumothorax apparent. CARDIOVASCULAR: No aortic atherosclerotic calcification present. Normal cardiac size. No pulmonary vascular congestion. OSSEOUS STRUCTURES: No significant abnormalities. VISUALIZED UPPER ABDOMEN: Normal. OTHER FINDINGS: None. IMPRESSION: There is a right IJ line terminating in the SVC. There is no pneumothorax
[2018-07-13] MEDS: Insulin Reg-LOW-Coverage SC SCH (08:54)
[2018-07-13] MEDS: Oxycodone/Acetaminophen 5/325 mg Tab PO PRN ×2 (08:59→21:57)
[2018-07-13] MEDS ORDERED: Dextrose 50% SYRINGE Inj (50 ml) IV PRN (09:47)
[2018-07-13] MEDS ORDERED: Insulin Regular 100 UNITS in Sodium Chloride 0.9% 99 ML IV PRN (09:47)
[2018-07-13] MEDS: Lactated Ringer's 1,000 ML IV SCH ×2 (10:04→19:30)
[2018-07-13 10:33] LABS: ANISOCYTOSIS 1+; BAND 2 % (0-2); HYPOCHROMIA 1+; LYMPHOCYTE 4 % (22.0-35.0); MICROCYTOSIS 1+; MONOCYTE 3 % (1.0-6.0); NEUTROPHIL 91 % (50.0-70.0); PLATELET ESTIMATE NORMAL (NORMAL); POIKILOCYTOSIS SLIGHT; POLYCHROMASIA SLIGHT
[2018-07-13 10:47] LABS: VENOUS BLOOD GAS BASE EXCESS -8.6 mmol/L (0.0-2.0); VENOUS BLOOD GAS PO2 36 mm/Hg (30-55); VENOUS BLOOD PH 7.31 (7.32-7.43)
--- NOTE | 2018-07-13 14:51 | CP.PCM.PN ---
<Marv Hodges - Last Filed: 07/13/18 14:43> Subjective - Date & Time of Evaluation Date of Evaluation: 07/13/18 Time of Evaluation: 09:00 - Subjective Subjective: PGY-2 progress medicine note for Dr Recinos Overnight patient became hypotensive and had a recorded fever of 102.9. She was transferred to ICU with a central line placed and started on levophed. Flagyl was added. Clinically she is doing well - only complains of pain on suprapubic palpation, also complains of chills. Otherwise appears comfortable. Objective - Vital Signs/Intake and Output Vital Signs (last 24 hours): Temp Pulse Resp BP Pulse Ox 100.6 F H 105 H 20 102/52 L 99 07/13/18 12:00 07/13/18 08:10 07/13/18 08:10 07/13/18 10:00 07/13/18 08:10 Intake and Output: 07/13/18 07/13/18 06:59 18:59 Intake Total 5440 106 Output Total 150 Balance 5290 106 - Medications Medications: Current Medications Acetaminophen (Tylenol 325mg Tab) 650 mg PO Q4 PRN PRN Reason: Fever >100.4 F Last Admin: 07/13/18 09:09 Dose: 650 mg Atorvastatin Calcium (Lipitor) 40 mg PO HS ALEX Last Admin: 07/12/18 21:37 Dose: 40 mg Dextrose (Dextrose 50% Inj) 0 ml IV STAT PRN; Protocol PRN Reason: Hypoglycemia Protocol Dextrose (Dextrose 50% Inj) 0 ml IV STAT PRN; Protocol PRN Reason: Hypoglycemia Protocol Heparin Sodium (Porcine) (Heparin) 5,000 units SC Q8 ALEX; Protocol Last Admin: 07/13/18 13:13 Dose: 5,000 units Hydrocortisone Sodium Succinate (Solu-Cortef) 50 mg IVP Q6H ALEX Last Admin: 07/13/18 10:03 Dose: 50 mg Dextrose (Dextrose 5% In Water 1000 Ml) 1,000 mls @ 0 mls/hr IV .Q0M PRN; Protocol PRN Reason: Hypoglycemia Protocol Aztreonam (Azactam 1 Gm) 100 mls @ 100 mls/hr IVPB Q8 ALEX; Protocol Last Admin: 07/13/18 13:13 Dose: 100 mls/hr Metronidazole (Flagyl) 500 mg in 100 mls @ 100 mls/hr IVPB Q8 ALEX; Protocol Last Admin: 07/13/18 13:13 Dose: 100 mls/hr NOREPINEPHRINE BIT/0.9 % NACL (Levophed 4 Mg/ 250 Ml Ns Premixed) 4 mg in 250 mls @ 15 mls/hr IV .[id number] PRN; Protocol PRN Reason: TITRATE PER MD ORDER Last Titration: 07/13/18 13:08 Dose: 2 mcg/min, 7.5 mls/hr Vasopressin 20 units/ Sodium (Chloride) 101 mls @ 9.09 mls/hr IV .Q11H7M ALEX; Protocol Last Admin: 07/13/18 10:00 Dose: 9.09 mls/hr Dextrose (Dextrose 5% In Water 1000 Ml) 1,000 mls @ 0 mls/hr IV .Q0M PRN; Protocol PRN Reason: Hypoglycemia Protocol Insulin Human Regular 100 (units/ Sodium Chloride) 100 mls @ 4 mls/hr IV .Q24H PRN; Protocol PRN Reason: TITRATE PER MD ORDER Last Titration: 07/13/18 14:31 Dose: 2 units/hr, 2 mls/hr Lactated Ringer's (Lactated Ringer's) 1,000 mls @ 150 mls/hr IV .Q6H40M [facility] Last Admin: 07/13/18 10:04 Dose: 150 mls/hr Oxycodone/Acetaminophen (Percocet 5/325 Mg Tab) 1 tab PO Q6H PRN PRN Reason: Pain, severe (8-10) Stop: 07/15/18 15:31 Last Admin: 07/13/18 08:59 Dose: 1 tab - Labs Labs: 07/13/18 07:20 07/13/18 07:20 - Additional Findings Additional findings: - Constitutional Appears: No Acute Distress - Head Exam Head Exam: ATRAUMATIC, NORMAL INSPECTION, NORMOCEPHALIC - Eye Exam Eye Exam: EOMI, Normal appearance, PERRL. absent: Scleral icterus Pupil Exam: NORMAL ACCOMODATION - ENT Exam ENT Exam: Mucous Membranes Moist - Neck Exam Neck exam: Positive for: Normal Inspection - Respiratory Exam Respiratory Exam: Clear to Auscultation Bilateral, NORMAL BREATHING PATTERN. absent: Rales, Rhonchi, Wheezes - Cardiovascular Exam Cardiovascular Exam: REGULAR RHYTHM, +S1, +S2 - GI/Abdominal Exam GI & Abdominal Exam: Normal Bowel Sounds, Soft. absent: Distended, Firm, Guarding, Rigid, Tenderness Additional comments: (+) suprapubic tenderness - Back Exam Back exam: CVA tenderness (R). absent: paraspinal tenderness, rash noted - Neurological Exam Neurological exam: Alert, CN II-XII Intact, Oriented x3 - Psychiatric Exam Psychiatric exam: Normal Affect, Normal Mood - Skin Skin Exam: Dry, Warm Assessment and Plan - Assessment and Plan (Free Text) Plan: Ms Obrien, 58F, with PMHx Gastric bypass 10 years ago and gastric lap-band September 2017, recurrent kidney stones x 3 (1 spontanous passage in September 2017, 2 required extracorporeal shockwave lithotripsy prior), DM, HTN, PCN allergy c/o right flank pain with subjective fevers and chills for the past 2 days. Of note, she recently had a ureteral stent placed by Dr Green. #Sepsis -Tmax 101.4 and tachy on admission -> evolved to hypotension and recorded fever of 102.9 -> transferred to ICU and started on levophed and vasopressin -Urologist Dr Green recommended removal of the recently placed ureteral stent to eliminate the potential nidus of infection - this was done in the ER by the ED attending -cystoscopy extraction pigtail stent with urologist Dr Jose Green 07/10/18 (per chart) -abdomen flat plate normal -aztreonam 1g ivpb q8h, flagyl 500mg ivp q8h, hydrocortison 50mg ivp q6h -currently on 2 pressors - levophed and vasopressin -percocet 5/325mg 1 tab po q6h prn for severe pain -blood cx negative, UA shows small leuk esterase and moderate blood, f/u urine cx, f/u mrsa screen -f/u abd/pelvis w/o contrast -infectious disease consult, Dr Bonilla -urologist Dr Jose Green #HTN -we will hold anti-hypertensive meds at this time due to borderline low BP, once BP improves we can resume home meds by converting home meds to lopressor 12.5mg bid and losartan 100mg po qd #Diabetes Mellitus -latest a1c from 06/2018 was 8.6 -consistent carb diet -RISS low protocol -hypoglycemia protocol #HLD -convert home med to lipitor 40mg po hs #Anemia -microcytic anemia likely due to impaired absorption 2/2 Gastric bypass/lap band -trend h/h -> dilutional component to anemia -outpatient f/u PPx -heparin 5000u sc q8 -SCDs Seen and discussed with Dr Recinos <Shauna Recinos - Last Filed: 07/13/18 15:15> Objective - Vital Signs/Intake and Output Vital Signs (last 24 hours): Temp Pulse Resp BP Pulse Ox 100.6 F H 105 H 20 102/52 L 99 07/13/18 12:00 07/13/18 08:10 07/13/18 08:10 07/13/18 10:00 07/13/18 08:10 Intake and Output: 07/13/18 07/13/18 06:59 18:59 Intake Total 5440 116 Output Total 150 Balance 5290 116 - Medications Medications: Current Medications Acetaminophen (Tylenol 325mg Tab) 650 mg PO Q4 PRN PRN Reason: Fever >100.4 F Last Admin: 07/13/18 09:09 Dose: 650 mg Atorvastatin Calcium (Lipitor) 40 mg PO HS ALEX Last Admin: 07/12/18 21:37 Dose: 40 mg Dextrose (Dextrose 50% Inj) 0 ml IV STAT PRN; Protocol PRN Reason: Hypoglycemia Protocol Dextrose (Dextrose 50% Inj) 0 ml IV STAT PRN; Protocol PRN Reason: Hypoglycemia Protocol Heparin Sodium (Porcine) (Heparin) 5,000 units SC Q8 ALEX; Protocol Last Admin: 07/13/18 13:13 Dose: 5,000 units Hydrocortisone Sodium Succinate (Solu-Cortef) 50 mg IVP Q6H ALEX Last Admin: 07/13/18 10:03 Dose: 50 mg Dextrose (Dextrose 5% In Water 1000 Ml) 1,000 mls @ 0 mls/hr IV .Q0M PRN; Protocol PRN Reason: Hypoglycemia Protocol Aztreonam (Azactam 1 Gm) 100 mls @ 100 mls/hr IVPB Q8 ALEX; Protocol Last Admin: 07/13/18 13:13 Dose: 100 mls/hr Metronidazole (Flagyl) 500 mg in 100 mls @ 100 mls/hr IVPB Q8 ALEX; Protocol Last Admin: 07/13/18 13:13 Dose: 100 mls/hr NOREPINEPHRINE BIT/0.9 % NACL (Levophed 4 Mg/ 250 Ml Ns Premixed) 4 mg in 250 mls @ 15 mls/hr IV .[id number] PRN; Protocol PRN Reason: TITRATE PER MD ORDER Last Titration: 07/13/18 14:35 Dose: 0 mcg/min, 0 mls/hr Vasopressin 20 units/ Sodium (Chloride) 101 mls @ 9.09 mls/hr IV .Q11H7M ALEX; Protocol Last Admin: 07/13/18 10:00 Dose: 9.09 mls/hr Dextrose (Dextrose 5% In Water 1000 Ml) 1,000 mls @ 0 mls/hr IV .Q0M PRN; Protocol PRN Reason: Hypoglycemia Protocol Insulin Human Regular 100 (units/ Sodium Chloride) 100 mls @ 4 mls/hr IV .Q24H PRN; Protocol PRN Reason: TITRATE PER MD ORDER Last Titration: 07/13/18 14:31 Dose: 2 units/hr, 2 mls/hr Lactated Ringer's (Lactated Ringer's) 1,000 mls @ 150 mls/hr IV .Q6H40M ALEX Last Admin: 07/13/18 10:04 Dose: 150 mls/hr Oxycodone/Acetaminophen (Percocet 5/325 Mg Tab) 1 tab PO Q6H PRN PRN Reason: Pain, severe (8-10) Stop: 07/15/18 15:31 Last Admin: 07/13/18 08:59 Dose: 1 tab - Labs Labs: 07/13/18 07:20 07/13/18 07:20 Attending/Attestation - Attestation I have personally seen and examined this patient.: Yes I have fully participated in the care of the patient.: Yes I have reviewed all pertinent clinical information, including history, physical exam and plan: Yes Notes (Text): 07/13/18 15:10 58 year old female with past medical history of gastric bypass and gastric lap- band surgery, kidney stones s/p recent ureteral stent, UTI, diabetes and hypertension who presented with complaint of fever, chills and right flank pain; found to have sepsis secondary to UTI. Dr. Green recommended to remove stent which was done in ER. She was transferred to ICU overnight for septic shock and started on pressors and steroids. She is on iv antibiotics. UCx is pending. BCx is negative to date. Follow up with ID and urology recommendations. Today noted to have NISHANT likely secondary to above. Continue with iv fluids. Repeat labs in AM. CT abd/pelvis is ordered. Shauna Recinos MD Hospitalist.
--- NOTE | 2018-07-13 15:13 | CARD ---
APPROVED REPORT Date of service: 07/13/2018 EXAM: Two-dimensional and M-mode echocardiogram with Doppler and color Doppler. INDICATION HYPOTENSION 2D DIMENSIONS Left Atrium (2D)3.6 (1.6-4.0cm)IVSd0.8 (0.7-1.1cm) LVDd5.1 (3.9-5.9cm)PWd1.0 (0.7-1.1cm) LVDs3.9 (2.5-4.0cm)FS (%) 23.6 % LVEF (%)46.9 (>50%) M-Mode DIMENSIONS Aortic Root2.40 (2.2-3.7cm)Aortic Cusp Exc.1.90 (1.5-2.0cm) Aortic Valve AoV Peak Xhanpgfp597.0cm/Tutu Peak GR.9mmHg Mitral Valve MV E Gvrtuxts440.0cm/sMV A Ufsoyrjv46.5cm/sE/A ratio1.3 TDI E/Lateral E'0.0E/Medial E'0.0 Tricuspid Valve TR Peak [id number] [id number] Peak Gr.17mmHg [id number] LEFT VENTRICLE The left ventricle is normal size. There is normal left ventricular wall thickness. The systolic function is mildly impaired. There is global hypokinesis of the left ventricle. The left ventricular diastolic function is normal. No left ventricle thrombus noted on this study. RIGHT VENTRICLE The right ventricle is normal size. There is normal right ventricular wall thickness. The right ventricular systolic function is normal. ATRIA The left atrium size is normal. The right atrium size is normal. AORTIC VALVE The aortic valve is normal in structure. No aortic regurgitation is present. There is no aortic valvular stenosis. MITRAL VALVE The mitral valve is normal in structure. There is no mitral valve regurgitation noted. There is no mitral valve stenosis. TRICUSPID VALVE The tricuspid valve is normal in structure. There is mild tricuspid regurgitation. PULMONIC VALVE The pulmonary valve is normal in structure. There is no pulmonic valvular regurgitation. GREAT VESSELS The aortic root is normal in size. The IVC is normal in size and collapses >50% with inspiration. PERICARDIAL EFFUSION There is no pericardial effusion. <Conclusion> There is normal left ventricular wall thickness. The systolic function is mildly impaired. There is global hypokinesis of the left ventricle. The left ventricular diastolic function is normal. No left ventricle thrombus noted on this study. There is mild tricuspid regurgitation.
--- NOTE | 2018-07-13 15:19 | CT ---
Date of service: 07/13/2018 PROCEDURE: CT Abdomen and Pelvis without intravenous contrast HISTORY: sepsis COMPARISON: CT 06/25/2018 TECHNIQUE: Without contrast.. Contrast dose: Radiation dose: Total exam DLP = 1091.36 mGy-cm. This CT exam was performed using one or more of the following dose reduction techniques: Automated exposure control, adjustment of the mA and/or kV according to patient size, and/or use of iterative reconstruction technique. FINDINGS: LOWER THORAX: Unremarkable. LIVER: Unremarkable. No gross lesion or ductal dilatation. GALLBLADDER AND BILE DUCTS: Gallbladder removed PANCREAS: Unremarkable. No gross lesion or ductal dilatation. SPLEEN: Unremarkable. ADRENALS: Unremarkable. No mass. KIDNEYS AND URETERS: The previous study showed a 10 mm stone at the right UPJ. This is no longer seen. There is persistent perinephric stranding around the right kidney. There is no hydronephrosis. There are phleboliths in the right gonadal vein. There are no ureteral stones VASCULATURE: Unremarkable. No aortic aneurysm. No aortic atherosclerotic calcification or mural plaque present. BOWEL: Unremarkable. No obstruction. No gross mural thickening. There is a lap band around the proximal stomach. APPENDIX: Unremarkable. Normal appendix. PERITONEUM: Unremarkable. No free fluid. No free air. LYMPH NODES: Unremarkable. No enlarged lymph nodes. BLADDER: Unremarkable. REPRODUCTIVE: Unremarkable. BONES: No acute fracture. OTHER FINDINGS: None. IMPRESSION: The previous study showed a 10 mm stone at the right UPJ. This is no longer seen. There is persistent perinephric stranding around the right kidney. There is no hydronephrosis. There are phleboliths in the right gonadal vein. There are no ureteral stones
--- NOTE | 2018-07-13 17:04 | CON ---
DATE OF CONSULTATION: 07/13/2018 HISTORY OF PRESENT ILLNESS: This is a 58-year-old lady with history of diabetes, hypertension, and gastric bypass surgery 10 years ago as well as gastric lap band in 09/2017, who presented to [facility] with subjective fever and chills for the past 2 days. She had stent placed with urologist, Dr. Green, 3 days ago for ureteral kidney stone. The stent was supposed to be removed. However, it has remained in the ureter. That was removed, however, on current admission by Dr. Green. At the time of admission to ICU, the patient had nausea, some loss of appetite, difficulty urinating (prior to stent removal and pulling Fair catheter). The patient was found to be hypotensive and presumed diagnosis of septic shock due to UTI was placed. The patient was fluid resuscitated and started on norepinephrine with systemic antibiotics and septic workup initiated. The patient denies hematuria, chest pain, shortness of breath, or diarrhea. PAST MEDICAL HISTORY: Diabetes, hypertension, gastric bypass surgery, recurrent kidney stones. ALLERGIES: PENICILLIN. MEDICATIONS AT HOME: Levofloxacin, glyburide, Flomax, Crestor, Benicar, Bystolic, Tylenol with Codeine HOSPITAL MEDICATIONS: Tylenol p.o., Lipitor, aztreonam, heparin subcu, Flagyl, norepinephrine, Percocet p.r.n. The patient is on normal saline 150 mL/hour. FAMILY HISTORY: Noncontributory. SOCIAL HISTORY: No alcohol or illicit drug abuse. No tobacco smoking. REVIEW OF SYSTEM: Review of 12-organ systems other than mentioned in the history of present illness is negative. PHYSICAL EXAMINATION: VITAL SIGNS: The patient is on 2 mcg per minute of Levophed. Blood pressure initially 92/49, now trending down to 85/49. We will go up on Levo back to 4 mcg per minute. We will start vasopressin and stress dose steroids. The patient's temperature is 102.4, respiratory rate is 20, oxygen saturation 99% on 2 liters nasal cannula. HEENT: Head and neck atraumatic. LUNGS: Clear to auscultation bilaterally. HEART: Regular rate and rhythm. S1 and S2 normal. ABDOMEN: Soft, nontender, nondistended. MUSCULOSKELETAL: No C/C/E. NEURO: The patient moves all extremities spontaneously. SKIN: Moist. PSYCH: The patient is alert, awake, and oriented x3. LABORATORY DATA: WBC 13, hemoglobin 8.6, platelet count 211. Sodium 135, potassium 3.7, chloride 108, carbon dioxide 18, BUN 23, creatinine 1.8 up from 1.6, glucose 309, AST 18, ALT 16, total bilirubin 0.5, albumin 2.7. ABG 7.29, lactic acid 1.1 (of note, nail capillary refill less than 3 seconds). ASSESSMENT AND PLAN: This is a 58-year-old lady with septic shock secondary to urinary tract infection due to infected stent, which is now removed. Septic shock complicated by multiorgan systems failure including acute kidney injury, hyperglycemia, lactic acidosis. NEURO: The patient is alert, awake and oriented, feels tired. PULMONARY: Stable. CARDIOVASCULAR: The patient is in distributive shock secondary to sepsis/UTI. At the present time, I will proceed with hemodynamic support with norepinephrine to maintain mean arterial pressure of more than 65, vasopressin, and I will add a stress dose steroids. Her troponin x2 is negative. She does not have chest pain. I will order echocardiogram to rule out cardiogenic contribution to her hemodynamic instability. RENAL: The patient has acute kidney injury, most likely secondary to UTI. It appears that obstructive uropathy resolved. We will continue with maintaining mean arterial pressure more than 65, maintaining euvolemia, euglycemia and normothermia.. We will try to avoid hyperchloremia. ENDOCRINE: We will start the patient on insulin drip to maintain blood glucose within 140-180 range according to night sugar trial. ID: THE PATIENT IS ALLERGIC TO PENICILLINS and currently is on aztreonam. The patient has urine positive for E-coli, which is not ESBL. It is sensitive to ertapenem, ceftriaxone, cefazolin, cefepime, Zosyn, and meropenem. We will continue to target euvolemia, glycemia, normothermia, and oxygen saturation more than 90%. We will continue with deep venous thrombosis and gastrointestinal prophylaxis. ccm time 40 min Palmer Tim MD [email or web address]
--- NOTE | 2018-07-13 18:35 | CARD ---
APPROVED REPORT Date of service: 07/13/2018 EKG Measurement Heart [id number] <Conclusion> Sinus tachycardia Low voltage QRS Nonspecific T wave abnormality Abnormal ECG
--- NOTE | 2018-07-13 19:12 | CON ---
DATE OF CONSULTATION: 07/13/2018 REASON FOR CONSULTATION: Urosepsis. HISTORY OF PRESENT ILLNESS: The patient is a very pleasant lady. She is currently in the incentive care unit, every now and then is greeting nurses and the doctor since yesterday's presentation to the hospital. It appears that she is uroseptic. Per Urology, history is as follows. She initially presented here, she has a history of kidney stones. She presented here a couple of weeks back and at that time we did a cysto stent insertion for ureteral obstruction. Subsequently, we did a shockwave lithotripsy in [place]. Then, most recently, at that time, the patient said she did not have any stones, but now we know that actually the stones broke and she had some standup in the kidney. We brought her here this week on 07/10/2018, and at that time we did a stent removal and ureteroscopy and what we saw was basically a strand in her kidney. We did not do any laser at that time. was covered with antibiotic, with Rocephin, and she was sent home on Levaquin. Subsequently, I put a stent in with a string attached that was to be removed at 24 hours. The patient now presents to the emergency room where she was having d difficulty voiding, but she also had the stent that was basically dislodged and sitting out of her urethra. She is admitted now with sepsis. Chart note, the stent was going to be removed at 24 hours for various reasons and she was going to be questioned that it could stay in a little longer. The patient has been admitted initially to the floor and she is admitted now to the intensive care unit. with sepsis. Her white count is 14,000. She is a code sepsis. Her lactic acid level was noticed to be elevated. White count is 14,000, although repeat is the little lower and she was also noted to have a fairly low blood pressure and fairly low urine output, see below. She has basically received 4 liters of urine and put out may be 200 mL in the last couple of hours. Initially, she had a Fair inserted in the ER with about a residual of about 350 mL or 400 mL. See below for further plans. Meanwhile, she is currently in the ICU under the care of the store receiver and she has an indwelling Fair catheter. She is currently on Levophed and further Urology plans are requested, see below. PAST MEDICAL AND SURGICAL HISTORY: As follows. Everything has been listed as per the chart. There have been no other interim changes. MEDICATIONS: All listed on the chart. PHYSICAL EXAMINATION: GENERAL: A well-nourished female. She is currently resting comfortably. She states she has the chills and she is wrapped in the blanket. ABDOMEN: The abdomen is overall not grossly distended. No other abnormalities appreciated. GENITOURINARY: The Fair catheter is in place and draining. DIAGNOSIS: Urosepsis. The patient is status post multiple urology procedures for her stone, some here, some in [place]. Most recently on 07/10/2018, she underwent a cystoscopy, removal of the double J-stent, a ureteroscopy, renoscopy and insertion of double J-stent with dangle, with dangle to be removed at 24 hours. The patient now presents to the emergency room at about 48 hours with difficulty voiding with a dislodged stent and basically sepsis. From Urology stand, the plan is as follows: 1. Maintain the Fair. 2. The antibiotics as per Infectious Disease. Again, just to mention, per fellow mate, the patient was home on Levaquin, she took one pill Sunday, one pill , and then she took nothing on Sunday, were finished already. She was getting basically a 24-hour period of time off and on Sunday she repeated the dose of Rocephin. Regarding management of the ICU, again fluid resuscitation and Levophed is offered per the ICU team. 1. From urology standpoint, we would recommend continuing the Fair catheter until the patient is better. 2. We will also recommend getting a CT scan of the abdomen and pelvis, no contrast, no oral contrast, no IV contrast just to see if there is any possibility for an obstructing stone because that would change our management recommendation. If there is an obstructing stone, we would then put a stent back in at this point. However, the patient is not really complaining of real CVA tenderness and most likely she does not have an obstructing stone, but a CAT scan can well define what we need to say, especially we can compare to the previous CAT scan. Thank you for the Urology consult and we will follow along with you. Aries Green MD
[2018-07-13] MEDS: Meropenem IV 1 gm in NS 1 GM/50 ML BAG IVPB SCH (21:35)
--- NOTE | 2018-07-14 01:57 | CON ---
DATE: 07/13/2018 Patient is seen in room 129, bed 5. CHIEF COMPLAINT: Fever. HISTORY OF PRESENT ILLNESS: This is a 58-year-old female with a history of gastric bypass 10 years ago and a gastric lap banding in 09/2017 with a history of kidney stones who has had lithotripsy in the past, history of diabetes, hypertension, admitted with fevers and chills for the past 2 days. She recently had stent placed in by urologist, by Dr. Green on 07/10/2018 for a ureteral stone. She also had nausea, loss of appetite, difficulty urinating. No hematuria, no chest pain, no shortness of breath or diarrhea. The ureteral stone with stent placed was removed. PAST MEDICAL HISTORY: History of hypertension, diabetes, morbid obesity, recurrent kidney stones. PAST SURGICAL HISTORY: Significant for gastric bypass 10 years ago, cholecystectomy, hysterectomy. ALLERGIES: PATIENT IS ALLERGIC TO PENICILLIN, HOWEVER, SHE STATES THAT SHE IS NOT SURE, SHE WAS TOLD A CHILD SHE IS ALLERGIC TO PENICILLIN. SHE STATES THAT HER MOTHER TOLD THAT SHE HAD AN ALLERGY. SHE HAS NEVER REALLY HAD PENICILLIN FAR SHE COULD REMEMBER, THE TYPE OF ALLERGY IS NOT CLEAR. ALSO THE EMERGENCY ROOM CHART STATES THE PATIENT HAD ANAPHYLAXIS. PATIENT STATES THAT, THAT IS NOT CORRECT. MEDICATIONS AT HOME: Reveals the patient was on Levaquin. REVIEW OF SYSTEMS: A 12-point review of system is noted. PHYSICAL EXAMINATION GENERAL: She is in bed, answering questions. VITAL SIGNS: Temperature of 103.8 yesterday, today it is 101 and 102. Heart rate of 105, respiratory rate of 24 and a blood pressure of 102/50. HEENT: Unremarkable. NECK: Supple. LUNGS: Decreased breath sounds. HEART: Normal S1, S2. ABDOMEN: Soft, nontender. LABORATORY DATA: Reveals the patient's white count of 13,900, hemoglobin 11, platelets of 289. The patient's differential is are noted. Patient's renal function has changed from 1.2 to 1.8. Earlier this month, it was 0.8. Microbiology reveals the blood cultures are negative. Urinalysis shows moderate blood, moderate bilirubin, leukocytosis and only 1 to 3 wbcs, few bacteria. Patient had a CAT scan of the abdomen and pelvis, which shows a 10 mm stone at the right upper ureteropelvic junction, persistent perinephric stranding around the right kidney. Patient also had a chest x-ray. No active disease. Dr. Palmer Tim's note is reviewed and he states this is a 58-year-old female with diabetes, hypertension, gastric bypass, admitted with fevers. She had a stent placed by urologist for kidney stone and now has fevers and chills. ASSESSMENT AND PLAN: A 58-year-old female with severe sepsis and right pyelonephritis with right kidney stone and acute kidney injury in a patient WHO IS ALLERGIC TO PENICILLIN, but not type 1. We will treat the patient with meropenem, stop the Azactam, stop the Flagyl and check on the urine cultures and for Urology to reevaluate the patient regarding the stone. We will make further recommendations upon the availability of initial results. Dr. Recinos's note is reviewed. We will follow with you. At this time, review of orders reveals the patient is on Levophed, which changes the diagnosis of septic shock secondary to right pyelonephritis, acute kidney injury in a life threatening matter, must treat with meropenem. We will check on the urine cultures, which is pending. We will also order an HIV test because of the age of 58. We will follow with you. Pete Bonilla MD
[2018-07-14] MEDS: Lactated Ringer's 1,000 ML IV SCH (02:00)
[2018-07-14 06:35] LABS: BASO # 0.01 K/mm3 (0.0-2.0); BASO % 0.1 % (0.0-3.0); HEMOGLOBIN 8.3 g/dL (12.0-16.0); LYMPH # 1.1 (1.2-3.4); LYMPH % 8.3 % (22.0-35.0); MEAN CELL VOLUME 73.7 fl (80.0-105.0); MEAN CORPUSCULAR HEMOGLOBIN 22.3 pg (25.0-35.0); MEAN CORPUSCULAR HGB CONC 30.3 g/dl (31.0-37.0); MEAN PLATELET VOLUME 9.5 fl (7.0-11.0); MONO # 0.7 (0.1-0.6); MONO % 5.4 % (1.0-6.0); RBC 3.72 10^6/uL (3.5-6.1); RED CELL DISTRIBUTION WIDTH 17.4 % (11.5-14.5); WHITE BLOOD COUNT 12.7 10^3/uL (4.5-11.0)
[2018-07-14] MEDS ORDERED: Pantoprazole 40 mg EC Tab PO STA (07:48)
[2018-07-14 08:00] LABS: ALB/GLOB RATIO 0.9 (1.1-1.8); ALBUMIN 2.5 g/dL (3.0-4.8); ALT/SGPT 18 U/L (7-56); AST/SGOT 26 U/L (14-36); BLOOD UREA NITROGEN 21 mg/dL (7-21); CALCIUM 7.6 mg/dL (8.4-10.5); GFR NON-AFRICAN AMERICAN > 60
[2018-07-14] MEDS: Insulin Detemir 100 units/ml Vial (Levemir) SC SCH (10:00)
[2018-07-14] MEDS: Meropenem IV 1 gm in NS 1 GM/50 ML BAG IVPB SCH ×2 (10:01→21:45)
[2018-07-14] MEDS: Linezolid 600 mg in D5W 300 ml 600 MG/300 ML BAG IVPB SCH ×2 (10:02→23:48)
[2018-07-14] MEDS: Insulin Lispro 1 UNITS/0.01 ML SC SCH ×2 (11:18→16:14)
--- NOTE | 2018-07-14 11:24 | CP.PCM.PN ---
<Carl Ashley - Last Filed: 07/14/18 11:20> Subjective - Date & Time of Evaluation Date of Evaluation: 07/14/18 Time of Evaluation: 08:00 - Subjective Subjective: Carl Ashley PGY1 Medicine Progress Note for Dr. Recinos Patient was seen and examined at bedside. No fevers overnight. Patient on levophed, vasopressin, midodrine, and insulin drip as per ICU team. Patient is AAOx3. She still has lower abd pain and right sided abd pain. Denies cp, sob, n/v/d. A full 12 point ROS was conducted and unremarkable except as stated above. Objective - Vital Signs/Intake and Output Vital Signs (last 24 hours): Temp Pulse Resp BP Pulse Ox 99.7 F H 109 H 23 137/73 97 07/14/18 08:45 07/14/18 08:30 07/14/18 08:15 07/14/18 08:30 07/14/18 08:30 Intake and Output: 07/14/18 07/14/18 06:59 18:59 Intake Total 2058.5 9 Output Total 800 Balance 1258.5 9 - Medications Medications: Current Medications Acetaminophen (Tylenol 325mg Tab) 650 mg PO Q4 PRN PRN Reason: Fever >100.4 F Last Admin: 07/14/18 07:45 Dose: 650 mg Atorvastatin Calcium (Lipitor) 40 mg PO HS ALEX Last Admin: 07/13/18 22:17 Dose: 40 mg Dextrose (Dextrose 50% Inj) 0 ml IV STAT PRN; Protocol PRN Reason: Hypoglycemia Protocol Dextrose (Dextrose 50% Inj) 0 ml IV STAT PRN; Protocol PRN Reason: Hypoglycemia Protocol Heparin Sodium (Porcine) (Heparin) 5,000 units SC Q8 ALEX; Protocol Last Admin: 07/14/18 06:40 Dose: 5,000 units Hydrocortisone Sodium Succinate (Solu-Cortef) 50 mg IVP DAILY [facility] Dextrose (Dextrose 5% In Water 1000 Ml) 1,000 mls @ 0 mls/hr IV .Q0M PRN; Protocol PRN Reason: Hypoglycemia Protocol Dextrose (Dextrose 5% In Water 1000 Ml) 1,000 mls @ 0 mls/hr IV .Q0M PRN; Protocol PRN Reason: Hypoglycemia Protocol Meropenem (Merrem Iv 1 Gm Premix) 1 gm in 50 mls @ 100 mls/hr IVPB Q12 ALEX; Protocol Stop: 07/21/18 19:01 Last Admin: 07/14/18 10:01 Dose: 100 mls/hr Linezolid (Zyvox 600mg/300ml D5w) 600 mg in 300 mls @ 200 mls/hr IVPB Q12 ALEX; Protocol Stop: 07/23/18 10:01 Last Admin: 07/14/18 10:02 Dose: 200 mls/hr Insulin Detemir (Levemir) 20 unit SC DAILY ALEX Last Admin: 07/14/18 10:00 Dose: 20 units Insulin Human Lispro (Humalog) 6 units SC AC [facility] Midodrine (Proamatine) 10 mg PO TID [facility] Last Admin: 07/14/18 10:02 Dose: 10 mg Oxycodone/Acetaminophen (Percocet 5/325 Mg Tab) 1 tab PO Q6H PRN PRN Reason: Pain, severe (8-10) Stop: 07/15/18 15:31 Last Admin: 07/13/18 21:57 Dose: 1 tab - Labs Labs: 07/14/18 06:00 07/14/18 06:00 - Constitutional Appears: No Acute Distress - Head Exam Head Exam: ATRAUMATIC, NORMAL INSPECTION, NORMOCEPHALIC - Eye Exam Eye Exam: EOMI, Normal appearance, PERRL. absent: Scleral icterus Pupil Exam: NORMAL ACCOMODATION - ENT Exam ENT Exam: Mucous Membranes Moist - Neck Exam Neck exam: Positive for: Normal Inspection. RIJ central line in place. - Respiratory Exam Respiratory Exam: Clear to Auscultation Bilateral, NORMAL BREATHING PATTERN. absent: Rales, Rhonchi, Wheezes - Cardiovascular Exam Cardiovascular Exam: REGULAR RHYTHM, +S1, +S2 - GI/Abdominal Exam GI & Abdominal Exam: Normal Bowel Sounds, Soft. absent: Distended, Firm, Guarding, Rigid, Tenderness Additional comments: (+) mild suprapubic tenderness - Back Exam Back exam: CVA tenderness (R). absent: paraspinal tenderness, rash noted - Neurological Exam Neurological exam: Alert, CN II-XII Intact, Oriented x3 - Psychiatric Exam Psychiatric exam: Normal Affect, Normal Mood - Skin Skin Exam: Dry, Warm Assessment and Plan - Assessment and Plan (Free Text) Assessment: Patient is a 58F, with PMHx Gastric bypass 10 years ago and gastric lap-band September 2017, recurrent kidney stones x 3 (1 spontaneous passage in September 2017, 2 required extracorporeal shockwave lithotripsy prior), DM, HTN, PCN allergy c/o right flank pain with subjective fevers and chills for the past 2 days. Of note, she recently had a R-ureteral stent placed by Dr Green. Patient admitted for septic shock 2/2 R-Pyelonephritis due to infected ureteral stent. Plan: Septic Shock 2/2 R-Pyelonephritis due to infected ureteral stent - Monitor in ICU, recs appreciated. At this time, c/w levophed, vasopressin, stress dose steroids for BP support. Patient also on insulin drip to control sugars as per NICE-SUGAR trial. - Maintain MAP > 65 - wbc 12.7, downtrending from 13. Continue to monitor for fevers and maintain normothermia. - c/w luis - Abdomen/Pelvis CT: the previous study showed a 10 mm stone at the right UPJ. This is no longer seen. There is persistent perinephric stranding around the right kidney. There is no hydronephrosis. There are phleboliths in the right gonadal vein. There are no ureteral stones - ID (Dr. Bonilla) on consult. As per ID, antibiotics switched to merrem IVPq12 (started 07/13) - Urologist (Dr Green) on consult. Recs appreciated. - c/w percocet 5/325mg 1 tab po q6h prn for severe pain - Catheter tip cx: E. Faecalis - blood cx negative x2 (prelim) - UCx pending - MRSA pending - UA shows small leuk esterase and moderate blood - cystoscopy extraction pigtail stent with urologist Dr Jose Green 07/10/18 (per chart) HTN - HTN meds held a this time due to septic shock; resume once resolved DM - latest a1c from 06/2018 was 8.6 - consistent carb diet - RISS low protocol - hypoglycemia protocol HLD - lipitor 40mg po hs Anemia - microcytic anemia likely due to impaired absorption 2/2 Gastric bypass/lap band - trend h/h -> dilutional component to anemia; no bleeding - patient stable - outpatient f/u PPx -heparin 5000u sc q8, SCDs -SCDs Dispo: Continue to monitor patient in the ICU. Case was discussed and reviewed with Attending Physician, Dr. Recinos. <Shauna Recinos - Last Filed: 07/14/18 12:29> Objective - Vital Signs/Intake and Output Vital Signs (last 24 hours): Temp Pulse Resp BP Pulse Ox 99.7 F H 109 H 23 137/73 97 07/14/18 08:45 07/14/18 08:30 07/14/18 08:15 07/14/18 08:30 07/14/18 08:30 Intake and Output: 07/14/18 07/14/18 06:59 18:59 Intake Total 2058.5 9 Output Total 800 Balance 1258.5 9 - Medications Medications: Current Medications Acetaminophen (Tylenol 325mg Tab) 650 mg PO Q4 PRN PRN Reason: Fever >100.4 F Last Admin: 07/14/18 07:45 Dose: 650 mg Atorvastatin Calcium (Lipitor) 40 mg PO HS ALEX Last Admin: 07/13/18 22:17 Dose: 40 mg Dextrose (Dextrose 50% Inj) 0 ml IV STAT PRN; Protocol PRN Reason: Hypoglycemia Protocol Dextrose (Dextrose 50% Inj) 0 ml IV STAT PRN; Protocol PRN Reason: Hypoglycemia Protocol Heparin Sodium (Porcine) (Heparin) 5,000 units SC Q8 ALEX; Protocol Last Admin: 07/14/18 06:40 Dose: 5,000 units Hydrocortisone Sodium Succinate (Solu-Cortef) 50 mg IVP DAILY ALEX Dextrose (Dextrose 5% In Water 1000 Ml) 1,000 mls @ 0 mls/hr IV .Q0M PRN; Protocol PRN Reason: Hypoglycemia Protocol Dextrose (Dextrose 5% In Water 1000 Ml) 1,000 mls @ 0 mls/hr IV .Q0M PRN; Protocol PRN Reason: Hypoglycemia Protocol Meropenem (Merrem Iv 1 Gm Premix) 1 gm in 50 mls @ 100 mls/hr IVPB Q12 ALEX; Protocol Stop: 07/21/18 19:01 Last Admin: 07/14/18 10:01 Dose: 100 mls/hr Linezolid (Zyvox 600mg/300ml D5w) 600 mg in 300 mls @ 200 mls/hr IVPB Q12 ALEX; Protocol Stop: 07/23/18 10:01 Last Admin: 07/14/18 10:02 Dose: 200 mls/hr Insulin Detemir (Levemir) 20 unit SC DAILY [facility] Last Admin: 07/14/18 10:00 Dose: 20 units Insulin Human Lispro (Humalog) 6 units SC AC [facility] Last Admin: 07/14/18 11:18 Dose: 6 units Midodrine (Proamatine) 10 mg PO TID [facility] Last Admin: 07/14/18 10:02 Dose: 10 mg Oxycodone/Acetaminophen (Percocet 5/325 Mg Tab) 1 tab PO Q6H PRN PRN Reason: Pain, severe (8-10) Stop: 07/15/18 15:31 Last Admin: 07/13/18 21:57 Dose: 1 tab - Labs Labs: 07/14/18 06:00 07/14/18 06:00 Attending/Attestation - Attestation I have personally seen and examined this patient.: Yes I have fully participated in the care of the patient.: Yes I have reviewed all pertinent clinical information, including history, physical exam and plan: Yes Notes (Text): 07/14/18 12:25 58 year old female with past medical history of gastric bypass and gastric lap- band surgery, kidney stones s/p recent ureteral stent, UTI, diabetes and hypertension who presented with complaint of fever, chills and right flank pain; found to have sepsis secondary to UTI/pyelonephritis. She was started on pressors and iv antibiotics. UCx is pending. BCx is negative to date. NISHANT from yesterday has resolved. CT abd/pelvis was reviewed with showed persistent perinephric stranding of right kidney. Follow up with ID and urology recommendations. Shauna Recinos MD Hospitalist.
--- NOTE | 2018-07-14 13:20 | PN ---
DATE: 07/14/2018 SUBJECTIVE: The patient seen earlier today. No acute distress. Nontoxic. She has had no fevers last night, although today morning she has a fever. PHYSICAL EXAMINATION: VITAL SIGNS: Temperature is 101.4, respiratory rate of 25, heart rate of 100. HEENT: Unremarkable. NECK: Supple. LUNGS: Decreased breath sounds. HEART: Normal S1, S2. ABDOMEN: Soft, nontender. LABORATORY DATA: White count of 12,700, hemoglobin of 8. Chemistry reveals a BUN of 21, creatinine of 0.7. The patient does have an elevated procalcitonin. Urinalysis is noted. Microbiology reveals the blood cultures are negative. Catheter tip culture is sensitive ampicillin, Enterococcus. Urine culture is pending. The patient had a urine culture from 06/25/2018 with E. coli sensitive to amikacin, cefazolin, cefepime and ceftriaxone, resistant to quinolone, Bactrim and ampicillin. Review of orders reveals the patient to be on meropenem. The patient is also on Solu-Cortef. The patient's renal function is resolved. HOME MEDICATIONS: Reviewed. ASSESSMENT AND PLAN: A 58-year-old female who is ALLERGIC TO PENICILLIN, also the patient said she is not sure of that allergy. She has received ceftriaxone without any problem. She is receiving meropenem without any problem, now with history of diabetes and hypertension, admitted with sepsis with ureteral stones and stent. The stent was removed. The patient with kidney stones, now has sepsis with Enterococcus from the tip of the catheter and Escherichia coli from the urine with pyelonephritis, perinephric stranding on the right kidney and a kidney stone, continues to have fever. We will add Zyvox for the Enterococcus. CAT scan of the abdomen and pelvis from yesterday is reviewed, which shows a 10 mm stone at the right ureteropelvic junction, no longer is seen. From the previous imaging, there was a 10 mm persistent perinephric stranding on the right kidney. There is no hydro. We will follow the fever curve and white count. We will check on the repeat urine cultures and we will add Zyvox, today will be day #1 and is day #2 of meropenem. The patient appears to be tolerating. We will follow closely with you. Pete Bonilla MD
--- NOTE | 2018-07-14 14:43 | PN ---
DATE: 07/14/2018 SUBJECTIVE: The patient is seen and examined in bedside. She is comfortable. She is sitting in the chair and just finished her breakfast. She tolerated oral nutrition and hydration well. No events overnight. The patient did have a fever up to 101.4 in the morning. She received Tylenol with fever resolution. She reports that subjectively, she is doing better now. PHYSICAL EXAMINATION: VITAL SIGNS: Temperature 99.7. Blood pressure 137/73, off of vasopressin and Levophed. Heart rate is 99. Oxygen saturation 97% on room air. Respiratory rate 23. HEENT: Head and neck atraumatic. LUNGS: Clear to auscultation bilaterally. HEART: Regular rate and rhythm. S1 and S2 normal. ABDOMEN: Soft, nontender, nondistended. MUSCULOSKELETAL: No C/C/E. NEUROLOGIC: The patient moves all extremities spontaneously. SKIN: Moist. PSYCHIATRIC: The patient is alert, awake and oriented x3. LABORATORY DATA: WBC 12.7, down from 13, hemoglobin 8.3, down from 8.6, platelet count 217. Sodium 136, potassium 4, chloride 107, carbon dioxide of 22, BUN 21, creatinine 0.7, down from 1.8, glucose 252 (the patient is off of insulin drip, had the cortisone dose decreased to 50 mg daily and will be off tomorrow if hemodynamic stability is ascertained). MEDICATIONS: Tylenol p.r.n., Lipitor, heparin subcutaneous, hydrocortisone subcutaneous 8 mg daily, Levemir 20 units subcutaneous daily, meropenem, insulin Lispro 6 units stat, midodrine 10 mg p.o. t.i.d., norepinephrine is off, Zofran p.r.n., Percocet p.r.n., Zyvox. ASSESSMENT AND PLAN: This is a 58-year-old lady with resolved septic shock due to urinary tract infection. At the present time, her acute kidney injury resolved. She is tolerating oral hydration and nutrition. She is tolerating out of bed to chair. She has residual fever episodes responding to Tylenol p.r.n. IV. We will not exceed Tylenol dose of 3 g a day. The patient is on meropenem and linezolid. Infectious Disease Services is following her as well. We will continue with midodrine 10 mg p.o. 3 times daily (retrospective data, CHEST 2016) and continue with tapering down her steroids. We will stop IV fluids to avoid fluid overload. We will continue maintaining blood glucose within 120 to 180 range according to night sugar trial. ccm time 40 min Palmer Tim MD MTDD
[2018-07-14] MEDS: Mupirocin 2% Ointment 15 GM TUBE TOP SCH (21:45)
[2018-07-15 07:28] LABS: BASO # 0.01 K/mm3 (0.0-2.0); BASO % 0.1 % (0.0-3.0); EOS % 0.1 % (1.5-5.0); HEMOGLOBIN 8.2 g/dL (12.0-16.0); LYMPH # 1.3 (1.2-3.4); LYMPH % 15.3 % (22.0-35.0); MEAN CELL VOLUME 72.3 fl (80.0-105.0); MEAN CORPUSCULAR HEMOGLOBIN 21.8 pg (25.0-35.0); MEAN CORPUSCULAR HGB CONC 30.1 g/dl (31.0-37.0); MEAN PLATELET VOLUME 9.9 fl (7.0-11.0); MONO # 0.6 (0.1-0.6); MONO % 6.8 % (1.0-6.0); RBC 3.76 10^6/uL (3.5-6.1); RED CELL DISTRIBUTION WIDTH 17.3 % (11.5-14.5); WHITE BLOOD COUNT 8.7 10^3/uL (4.5-11.0)
[2018-07-15 07:49] LABS: ALB/GLOB RATIO 0.9 (1.1-1.8); ALBUMIN 2.7 g/dL (3.0-4.8); ALT/SGPT 24 U/L (7-56); AST/SGOT 25 U/L (14-36); BLOOD UREA NITROGEN 19 mg/dL (7-21); GFR NON-AFRICAN AMERICAN > 60
[2018-07-15] MEDS: Insulin Lispro 1 UNITS/0.01 ML SC SCH ×3 (08:07→17:09)
[2018-07-15] MEDS: Insulin Detemir 100 units/ml Vial (Levemir) SC SCH (11:38)
[2018-07-15] MEDS: Mupirocin 2% Ointment 15 GM TUBE TOP SCH ×2 (11:38→17:10)
[2018-07-15] MEDS: Meropenem IV 1 gm in NS 1 GM/50 ML BAG IVPB SCH ×2 (11:38→21:27)
[2018-07-15] MEDS: Linezolid 600 mg in D5W 300 ml 600 MG/300 ML BAG IVPB SCH ×2 (11:40→21:27)
--- NOTE | 2018-07-15 15:23 | CP.PCM.PN ---
<Carl Ashley - Last Filed: 07/15/18 15:34> Subjective - Date & Time of Evaluation Date of Evaluation: 07/15/18 Time of Evaluation: 08:00 - Subjective Subjective: Carl Ashley PGY1 Medicine Progress Note for Dr. Watson Patient was seen and examined at bedside. No fevers overnight. R-IJ was removed yesterday. Patient no longer on BP support medications. She is AAOx3, sitting out of bed to chair. Her abdominal pain has improved and clinically she looks much better. Denies cp, sob, n/v/d. Luis is in place with good output. Nursing made aware that we will undergo a voiding trial and try to discontinue luis today. A full 12 point ROS was conducted and unremarkable except as stated above. Objective - Vital Signs/Intake and Output Vital Signs (last 24 hours): Temp Pulse Resp BP Pulse Ox 99 F 79 18 125/65 96 07/15/18 15:06 07/15/18 15:06 07/15/18 15:06 07/15/18 15:06 07/15/18 15:06 Intake and Output: 07/15/18 07/15/18 06:59 18:59 Intake Total 880 Output Total 1000 Balance -120 - Medications Medications: Current Medications Acetaminophen (Tylenol 325mg Tab) 650 mg PO Q4 PRN PRN Reason: Fever >100.4 F Last Admin: 07/15/18 00:00 Dose: 650 mg Atorvastatin Calcium (Lipitor) 40 mg PO HS ALEX Last Admin: 07/14/18 21:46 Dose: 40 mg Dextrose (Dextrose 50% Inj) 0 ml IV STAT PRN; Protocol PRN Reason: Hypoglycemia Protocol Heparin Sodium (Porcine) (Heparin) 5,000 units SC Q8 ALEX; Protocol Last Admin: 07/15/18 14:13 Dose: 5,000 units Dextrose (Dextrose 5% In Water 1000 Ml) 1,000 mls @ 0 mls/hr IV .Q0M PRN; Protocol PRN Reason: Hypoglycemia Protocol Meropenem (Merrem Iv 1 Gm Premix) 1 gm in 50 mls @ 100 mls/hr IVPB Q12 [facility]; Protocol Stop: 07/21/18 19:01 Last Admin: 07/15/18 11:38 Dose: 100 mls/hr Linezolid (Zyvox 600mg/300ml D5w) 600 mg in 300 mls @ 200 mls/hr IVPB Q12 [facility]; Protocol Stop: 07/23/18 10:01 Last Admin: 07/15/18 11:40 Dose: 200 mls/hr Insulin Detemir (Levemir) 20 unit SC DAILY [facility] Last Admin: 07/15/18 11:38 Dose: 20 units Insulin Human Lispro (Humalog) 6 units SC AC [facility] Last Admin: 07/15/18 12:05 Dose: 6 units Mupirocin (Bactroban Ointment) 1 gm TOP BID [facility] Last Admin: 07/15/18 11:38 Dose: 1 applic Oxycodone/Acetaminophen (Percocet 5/325 Mg Tab) 1 tab PO Q6H PRN PRN Reason: Pain, severe (8-10) Stop: 07/15/18 15:31 Last Admin: 07/13/18 21:57 Dose: 1 tab Sodium Chloride (Velva Nasal Adolphus) 0 ml NS QID PRN PRN Reason: Nasal congestion Last Admin: 07/15/18 11:39 Dose: 1 applic - Labs Labs: 07/15/18 07:00 07/15/18 07:00 - Constitutional Appears: No Acute Distress - Head Exam Head Exam: ATRAUMATIC, NORMAL INSPECTION, NORMOCEPHALIC - Eye Exam Eye Exam: EOMI, Normal appearance, PERRL. absent: Scleral icterus Pupil Exam: NORMAL ACCOMODATION - ENT Exam ENT Exam: Mucous Membranes Moist - Neck Exam Neck exam: Positive for: Normal Inspection. RIJ central line in place. - Respiratory Exam Respiratory Exam: Clear to Auscultation Bilateral, NORMAL BREATHING PATTERN. absent: Rales, Rhonchi, Wheezes - Cardiovascular Exam Cardiovascular Exam: REGULAR RHYTHM, +S1, +S2 - GI/Abdominal Exam GI & Abdominal Exam: Normal Bowel Sounds, Soft. absent: Distended, Firm, Guarding, Rigid, Tenderness Additional comments: - Back Exam Back exam: CVA tenderness (R). absent: paraspinal tenderness, rash noted - Neurological Exam Neurological exam: Alert, CN II-XII Intact, Oriented x3 - Psychiatric Exam Psychiatric exam: Normal Affect, Normal Mood - Skin Skin Exam: Dry, Warm Assessment and Plan - Assessment and Plan (Free Text) Assessment: Patient is a 58F, with PMHx Gastric bypass 10 years ago and gastric lap-band September 2017, recurrent kidney stones x 3 (1 spontaneous passage in September 2017, 2 required extracorporeal shockwave lithotripsy prior), DM, HTN, PCN allergy c/o right flank pain with subjective fevers and chills for the past 2 days. Of note, she recently had a R-ureteral stent placed by Dr Green. Patient admitted for septic shock 2/2 R-Pyelonephritis due to infected ureteral stent. Plan: Septic Shock 2/2 R-Pyelonephritis due to infected ureteral stent - resolved - Hypotension resolved. Discontinued stress dose steroids and midodrine. - Luis was in place because of poor urine output from hypotension; good UOP now, will start voiding trial in order to remove luis - Afebrile and leukocytosis resolved - c/w merrem (07/13) and linezolid (07/14) as per ID recs - Urine Cx: +enterococcus faecalis; contact precautions for VRE - Catheter tip cx: E. Faecalis - MRSA positive - Abdomen/Pelvis CT: the previous study showed a 10 mm stone at the right UPJ. This is no longer seen. There is persistent perinephric stranding around the right kidney. There is no hydronephrosis. There are phleboliths in the right gonadal vein. There are no ureteral stones - ID (Dr. Bonilla) on consult. Recs appreciated. - Urologist (Dr Green) on consult. Recs appreciated. - c/w percocet 5/325mg 1 tab po q6h prn for severe pain - blood cx negative x2 (prelim) - UA shows small leuk esterase and moderate blood HTN - HTN meds held because of septic shock - normotensive at this time DM - latest a1c from 06/2018 was 8.6 - consistent carb diet - RISS low protocol - hypoglycemia protocol HLD - lipitor 40mg po hs Anemia - Likely 2/2 Dilutional Effect from fluids - Hgb stable at 8.2 - no overt bleeding - outpatient f/u PPx -heparin 5000u sc q8, SCDs -SCDs Dispo: Continue to monitor patient on med/surg. Septic Shock is improved. Will monitor overnight. Plan to remove luis today. Anticipate discharge tomorrow. Case was discussed and reviewed with Attending Physician, Dr. Watson <Irfan,Mohammad - Last Filed: 07/17/18 13:55> Objective - Vital Signs/Intake and Output Vital Signs (last 24 hours): Temp Pulse Resp BP Pulse Ox 98.2 F 83 20 122/67 97 07/16/18 07:30 07/16/18 07:30 07/16/18 07:30 07/16/18 07:30 07/16/18 07:30 - Labs Labs: 07/16/18 06:45 07/16/18 06:45 Attending/Attestation - Attestation I have personally seen and examined this patient.: Yes I have fully participated in the care of the patient.: Yes I have reviewed all pertinent clinical information, including history, physical exam and plan: Yes Notes (Text): 07/17/18 13:53 Medical record note made by the resident after discussion with my direction and input after the patient was personally seen and examined by me. I have reviewed the chart and agree that the record accurately reflects by personal performance of the history, physical exam, data review, and medical decision-making, in the course for the patient. I have also personally directed the plan of care.
[2018-07-15 23:23] VITALS: O2SAT 97
--- NOTE | 2018-07-16 02:20 | PN ---
DATE: 07/15/2018 SUBJECTIVE: The patient is in bed, in no acute distress, nontoxic. PHYSICAL EXAMINATION: VITAL SIGNS: Temperature was 98, blood pressure is 125/60, respiratory rate of 18. HEENT: Unremarkable. NECK: Supple. LUNGS: Have decreased breath sounds. HEART: Normal S1 and S2. ABDOMEN: Soft. LABORATORY DATA: Laboratory examination reveals a white count of 8.7, hemoglobin of 8, platelets of 276. BUN of 19, creatinine 0.8. Urinalysis is noted. Microbiology reveals the blood cultures have no growth. Catheter tip culture has Enterococcus faecalis, sensitive to linezolid. Urine culture has also Enterococcus faecalis, sensitive to linezolid. Review of orders reveals the patient to be on meropenem and linezolid. Dr. Recinos's note is reviewed. ASSESSMENT AND PLAN: This is a 58-year-old female who is allergic to penicillin and received ceftriaxone without any issues, currently has history of diabetes, hypertension, admitted with sepsis with ureteral stones and stent. The stent was removed. Has sepsis with Enterococcus from the catheter tip and Escherichia coli from the urine with pyelonephritis, perinephric stranding and kidney stones. On Zyvox and meropenem, day #2 of Zyvox and day #3 of meropenem. May be able to switch to oral Zyvox and complete therapy upon discharge, would complete 10 days for pyelonephritis. Pete Bonilla MD
[2018-07-16 07:15] LABS: HEMOGLOBIN 8.2 g/dL (12.0-16.0); MEAN CELL VOLUME 72.6 fl (80.0-105.0); MEAN CORPUSCULAR HEMOGLOBIN 21.8 pg (25.0-35.0); MEAN PLATELET VOLUME 9.6 fl (7.0-11.0); RBC 3.76 10^6/uL (3.5-6.1); RED CELL DISTRIBUTION WIDTH 17.1 % (11.5-14.5); WHITE BLOOD COUNT 6.8 10^3/uL (4.5-11.0)
[2018-07-16 07:45] VITALS: BP 122/67; PULSE 83; RESP 20; TEMP 98.2
[2018-07-16 07:55] LABS: ALBUMIN 2.9 g/dL (3.0-4.8); ALT/SGPT 27 U/L (7-56); AST/SGOT 30 U/L (14-36); BLOOD UREA NITROGEN 14 mg/dL (7-21); CALCIUM 8.4 mg/dL (8.4-10.5); GFR NON-AFRICAN AMERICAN > 60
[2018-07-16] MEDS: Insulin Lispro 1 UNITS/0.01 ML SC SCH ×2 (08:37→11:53)
[2018-07-16] MEDS: Insulin Detemir 100 units/ml Vial (Levemir) SC SCH (10:27)
[2018-07-16] MEDS: Meropenem IV 1 gm in NS 1 GM/50 ML BAG IVPB SCH (10:27)
[2018-07-16] MEDS: Linezolid 600 mg in D5W 300 ml 600 MG/300 ML BAG IVPB SCH (10:28)
[2018-07-16] MEDS: Mupirocin 2% Ointment 15 GM TUBE TOP SCH (10:29)
--- NOTE | 2018-07-16 11:50 | CP.PCM.DIS ---
<CarrollMarv R - Last Filed: 07/16/18 12:23> Provider - Provider Date of Admission: 07/12/18 13:47 Attending physician: Shauna Recinos MD Primary care physician: PMD: Dr Craig Consults: 07/12/18 13:51 Consult [Physician Consult] Stat Comment: Consulting Provider: Franko Green Consulting Physician: Franko Green Reason for Consult: fever, flank pain, patient known to you 07/12/18 15:12 Infectious Disease Consult Routine Comment: Consulting Provider: Pete Bonilla Consulting Physician: Pete Bonilla Reason for Consult: UTI; recent ureteral stent placement 07/12/18 21:25 Diabetic Education Referral Routine Comment: Physician Instructions: Reason For Exam: EVALUATION Time Spent in preparation of Discharge (in minutes): 32 Diagnosis - Discharge Diagnosis (1) Sepsis Status: Resolved Priority: High (2) UTI (urinary tract infection) Status: Acute Priority: High Hospital Course - Lab Results Lab Results: Micro Results 07/12/18 13:15 Blood-Venous Blood Culture - Preliminary NO GROWTH AFTER 3 DAYS 07/12/18 12:45 Blood-Venous Blood Culture - Preliminary NO GROWTH AFTER 3 DAYS 07/12/18 19:10 Urine,Clean Catch Urine Culture - Final Enterococcus Faecalis 07/13/18 05:30 Nose MRSA Culture (Admit) - Final MRSA DETECTED 07/12/18 16:31 Catheter Tip Catheter Tip Culture - Final Enterococcus Faecalis Most Recent Lab Values WBC 6.8 10^3/uL (4.5-11.0) D 07/16/18 06:45 RBC 3.76 10^6/uL (3.5-6.1) 07/16/18 06:45 Hgb 8.2 g/dL (12.0-16.0) L 07/16/18 06:45 Hct 27.3 % (36.0-48.0) L 07/16/18 06:45 MCV 72.6 fl (80.0-105.0) L 07/16/18 06:45 MCH 21.8 pg (25.0-35.0) L 07/16/18 06:45 MCHC 30.0 g/dl (31.0-37.0) L 07/16/18 06:45 RDW 17.1 % (11.5-14.5) H 07/16/18 06:45 Plt Count 282 10^3/uL (120.0-450.0) 07/16/18 06:45 MPV 9.6 fl (7.0-11.0) 07/16/18 06:45 Neut % (Auto) 77.7 % (50.0-68.0) H 07/15/18 07:00 Lymph % (Auto) 15.3 % (22.0-35.0) L 07/15/18 07:00 [place] % (Auto) 6.8 % (1.0-6.0) H 07/15/18 07:00 Eos % (Auto) 0.1 % (1.5-5.0) L 07/15/18 07:00 Baso % (Auto) 0.1 % (0.0-3.0) 07/15/18 07:00 Lymph # (Auto) 1.3 (1.2-3.4) 07/15/18 07:00 [place] # (Auto) 0.6 (0.1-0.6) 07/15/18 07:00 Eos # (Auto) 0.0 (0.0-0.7) 07/15/18 07:00 Baso # (Auto) 0.01 K/mm3 (0.0-2.0) 07/15/18 07:00 Absolute Neuts (auto) 6.74 (1.4-6.5) H 07/15/18 07:00 Neutrophils % (Manual) 91 % (50.0-70.0) H 07/13/18 07:20 Band Neutrophils % 2 % (0-2) 07/13/18 07:20 Lymphocytes % (Manual) 4 % (22.0-35.0) L 07/13/18 07:20 Monocytes % (Manual) 3 % (1.0-6.0) 07/13/18 07:20 Platelet Evaluation Normal (NORMAL) 07/13/18 07:20 Polychromasia Slight 07/13/18 07:20 Hypochromasia 1+ 07/13/18 07:20 Poikilocytosis (manual Slight 07/13/18 07:20 Anisocytosis (manual) 1+ 07/13/18 07:20 Microcytosis (manual) 1+ 07/13/18 07:20 pO2 36 mm/Hg (30-55) 07/13/18 10:30 VBG pH 7.31 (7.32-7.43) L 07/13/18 10:30 VBG pCO2 33.0 (40-60) L 07/13/18 10:30 VBG HCO3 16.6 mmol/l (21-28) L 07/13/18 10:30 VBG Total CO2 17.6 mmol.L (22-28) L 07/13/18 10:30 VBG O2 Sat (Calc) 74.1 % (40-65) H 07/13/18 10:30 VBG Base Excess -8.6 mmol/L (0.0-2.0) L 07/13/18 10:30 VBG Potassium 3.9 mmol/L (3.6-5.2) 07/13/18 10:30 Sodium 134.0 mmol/L (132-148) 07/13/18 10:30 Chloride 106.0 mmol/L (98-107) 07/13/18 10:30 Glucose 299 mg/dl (65-105) H 07/13/18 10:30 Lactate 1.2 mmol/L (0.7-2.1) 07/13/18 10:30 FiO2 21.0 % 07/13/18 10:30 Crit Value Called To Ponce barr 07/12/18 21:50 Crit Value Called By Etjohn 07/12/18 21:50 Blood Gas Notified Time 215707/12/18 21:50 Sodium 139 mmol/L (132-148) 07/16/18 06:45 Potassium 3.6 mmol/L (3.6-5.0) 07/16/18 06:45 Chloride 103 mmol/L (98-107) 07/16/18 06:45 Carbon Dioxide 30 mmol/L (21-33) 07/16/18 06:45 Anion Gap 10 (10-20) 07/16/18 06:45 BUN 14 mg/dL (7-21) 07/16/18 06:45 Creatinine 0.7 mg/dl (0.7-1.2) 07/16/18 06:45 Est GFR ( Amer) > 60 07/16/18 06:45 Est GFR (Non-Af Amer) > 60 07/16/18 06:45 POC Glucose (mg/dL) 255 mg/dL (65-110) H 07/16/18 11:37 Random Glucose 201 mg/dL (70-110) H 07/16/18 06:45 Lactic Acid 1.0 mmol/L (0.7-2.1) 07/13/18 00:35 Calcium 8.4 mg/dL (8.4-10.5) 07/16/18 06:45 Phosphorus 2.4 mg/dL (2.5-4.5) L 07/12/18 21:50 Magnesium 1.6 mg/dL (1.7-2.2) L 07/12/18 21:50 Total Bilirubin 0.3 mg/dL (0.2-1.3) 07/16/18 06:45 AST 30 U/L (14-36) 07/16/18 06:45 ALT 27 U/L (7-56) 07/16/18 06:45 Alkaline Phosphatase 63 U/L (38-126) 07/16/18 06:45 Troponin I 0.02 ng/mL D 07/13/18 07:20 Total Protein 5.8 g/dL (5.8-8.3) 07/16/18 06:45 Albumin 2.9 g/dL (3.0-4.8) L 07/16/18 06:45 Globulin 2.9 gm/dL 07/16/18 06:45 Albumin/Globulin Ratio 1.0 (1.1-1.8) L 07/16/18 06:45 Amylase < 30 U/L (35-125) L 07/13/18 07:20 Lipase 66 U/L (23-300) 07/13/18 07:20 Procalcitonin 23.97 NG/ML (0.19-0.49) H 07/13/18 07:20 Venous Blood Potassium 3.9 mmol/L (3.6-5.2) 07/13/18 10:30 Urine Color Yellow (YELLOW) 07/12/18 19:10 Urine Appearance Slight-cloudy (CLEAR) 07/12/18 19:10 Urine pH 5.5 (4.7-8.0) 07/12/18 19:10 Ur Specific [place] >= 1.030 (1.005-1.035) 07/12/18 19:10 Urine Protein 100 mg/dL (<30 mg/dL) H 07/12/18 19:10 Urine Glucose (UA) Negative mg/dL (NEGATIVE) 07/12/18 19:10 Urine Ketones 15 mg/dL (NEGATIVE) H 07/12/18 19:10 Urine Blood Moderate (NEGATIVE) H 07/12/18 19:10 Urine Nitrate Negative (NEGATIVE) 07/12/18 19:10 Urine Bilirubin Moderate (NEGATIVE) H 07/12/18 19:10 Urine Urobilinogen 0.2 E.U./dL (<1 E.U./dL) 07/12/18 19:10 Ur Leukocyte Esterase Small Néstor/uL (NEGATIVE) H 07/12/18 19:10 Urine RBC 2 - 5 /hpf (0-2) H 07/12/18 19:10 Urine WBC 1 - 3 /hpf (0-6) 07/12/18 19:10 Ur Epithelial Cells 0 - 2 /hpf (0-5) 07/12/18 19:10 Urine Bacteria Few /hpf (NONE) 07/12/18 19:10 Urine Other Mucus /hpf 07/12/18 19:10 - Hospital Course Hospital Course: Ms Obrien, 58F, with PMHx Gastric bypass 10 years ago and gastric lap-band September 2017, recurrent kidney stones x 3 (1 spontanous passage in September 2017, 2 required extracorporeal shockwave lithotripsy prior), DM, HTN, PCN allergy c/o right flank pain with subjective fevers and chills for the past 2 days. She recently had a stent placed with urologist Dr Green on 07/10/18 (per records) for a ureteral kidney stone. She also endorsed nausea, loss of appetite, and inability to urinate (now resolved). She denied hematuria, chest pain, shortness of breath, diarrhea. In the ED she was given aztreonam and the ED attending took out the ureteral stent as advised by urologist Dr Green. A code sepsis was called in the ED. PMHx: HTN, DM - non-insulin dep, recurrent kidney stones x 3 (1 spontanous passage in September 2017, 2 required extracorporeal shockwave lithotripsy prior) PSHx: Gastric bypass 10 years ago and gastric lap-band September 2017, cholecystectomy, hysterectomy FHx: Denied SH: Worked in office. 2 sons. denies drink, smoke, drug All: Penicillin Med: glyburide 5 bid, crestor 10, olmesartan 40, bystolic 5 PMD = Dr Craig Urol = Dr Green HOSPITAL COURSE: Mrs Obrien was admitted for UTI and pyelonephritis possibly 2/2 to a recently placed stent (on 07/10)- the ureteral stent was removed from the ED attending as advised by urologist Dr Green as this was likely the nidus of infection. Patient had fevers in 102-103 range and also became hypotensive thus she was transferred to ICU and started on pressors - levophed and vasopressin. She was also given stress dose steroids. A CT abd/pelvis was done which showed: CT abd/pelvis: "the previous study showed a 10 mm stone at the right UPJ. This is no longer seen. There is persistent perinephric stranding around the right kidney. There is no hydronephrosis. There are phleboliths in the right gonadal vein. There are no ureteral stones". Her hypotension and fevers resolved and her pressors were discontinued and she was downgraded to the floors. A urine culture showed +enterococcus faecalis. Blood cultures were negative. Throughout her hospital stay patient was treated with merrem and linezolid ivpb. Her MRSA swab came back positive and she was given nasal bactroban. Her diabetes was treated with regular insulin sliding scale and carb consistent diet. Her home BP meds were held due to her hypotension. Consults: ID - Dr Randhawa; Urologist - Dr Green Discharge Exam - Additional Findings Additional findings: - Constitutional Appears: No Acute Distress - Head Exam Head Exam: ATRAUMATIC, NORMAL INSPECTION, NORMOCEPHALIC - Eye Exam Eye Exam: EOMI, Normal appearance, PERRL. absent: Scleral icterus Pupil Exam: NORMAL ACCOMODATION - ENT Exam ENT Exam: Mucous Membranes Moist - Neck Exam Neck exam: Positive for: Normal Inspection - Respiratory Exam Respiratory Exam: Clear to Auscultation Bilateral, NORMAL BREATHING PATTERN. ab sent: Rales, Rhonchi, Wheezes - Cardiovascular Exam Cardiovascular Exam: REGULAR RHYTHM, +S1, +S2 - GI/Abdominal Exam GI & Abdominal Exam: Normal Bowel Sounds, Soft. absent: Distended, Firm, Guarding, Rigid, Tenderness Additional comments: mild suprapubic tenderness improved since admission - Back Exam Back exam: CVA tenderness (R). absent: paraspinal tenderness, rash noted - Neurological Exam Neurological exam: Alert, CN II-XII Intact, Oriented x3 - Psychiatric Exam Psychiatric exam: Normal Affect, Normal Mood - Skin Skin Exam: Dry, Warm Discharge Plan - Discharge Medications Prescriptions: Linezolid [Zyvox] 600 mg PO Q12H #15 tab - Follow Up Plan Condition: GUARDED Disposition: HOME/ ROUTINE Instructions: Urinary Tract Infections in Adults, Type 2 Diabetes, Diabetes Diet , Kidney Infection (DC) Additional Instructions: Please follow-up with your PMD, Dr Craig, within 7 days of discharge for hospital post-discharge follow up and your microcytic anemia. Please follow-up with your urologist, Dr Green, within 7 days of discharge so he may further monitor your course and make recommendations as necessary. You will be discharged with the following antiobiotic, please take it as prescribed: 1. Linezolid 600mg take at 9AM and 9PM with the last tablet being taken on 07/23/18 -to avoid antibiotic-induced diarrhea it is recommended you take a probiotic with lunch for the next 2 weeks Please resume your home medications as prescribed by your outpatient doctors: 1. Glyburide 5mg daily before breakfast and once before dinner 2. Flomax 0.4mg daily at 10AM 3. Crestor 10mg daily at bedtime 4. Olmesartan 40mg daily at 10AM 5. Nebivolol 5mg daily at 10AM Your latest hgA1c was 8.6 - this is a marker for diabetes and is elevated - plea se do your best to avoid high carb meals and try to exercise as best you can. Your PMD will likely need to add another diabetes medication to your regimen after this current infection resolves. If symptoms return please promptly go to your nearest emergency department. Referrals: Piero Craig MD [Family Provider] - Franko Green MD [Staff Provider] - <Kalyn Watson - Last Filed: 07/17/18 13:53> Provider - Provider Date of Admission: 07/12/18 13:47 Attending physician: Shauna Recinos MD Consults: 07/12/18 13:51 Consult [Physician Consult] Stat Comment: Consulting Provider: Franko Green Consulting Physician: Franko Green Reason for Consult: fever, flank pain, patient known to you 07/12/18 15:12 Infectious Disease Consult Routine Comment: Consulting Provider: Pete Bonilla Consulting Physician: Pete Bonilla Reason for Consult: UTI; recent ureteral stent placement 07/12/18 21:25 Diabetic Education Referral Routine Comment: Physician Instructions: Reason For Exam: EVALUATION Hospital Course - Lab Results Lab Results: Micro Results 07/12/18 13:15 Blood-Venous Blood Culture - Final NO GROWTH AFTER 5 DAYS 07/12/18 13:15 Blood-Venous Gram Stain - Final TEST NOT PERFORMED 07/12/18 12:45 Blood-Venous Blood Culture - Final NO GROWTH AFTER 5 DAYS 07/12/18 12:45 Blood-Venous Gram Stain - Final TEST NOT PERFORMED 07/12/18 19:10 Urine,Clean Catch Urine Culture - Final Enterococcus Faecalis 07/13/18 05:30 Nose MRSA Culture (Admit) - Final MRSA DETECTED 07/12/18 16:31 Catheter Tip Catheter Tip Culture - Final Enterococcus Faecalis Most Recent Lab Values WBC 6.8 10^3/uL (4.5-11.0) D 07/16/18 06:45 RBC 3.76 10^6/uL (3.5-6.1) 07/16/18 06:45 Hgb 8.2 g/dL (12.0-16.0) L 07/16/18 06:45 Hct 27.3 % (36.0-48.0) L 07/16/18 06:45 MCV 72.6 fl (80.0-105.0) L 07/16/18 06:45 MCH 21.8 pg (25.0-35.0) L 07/16/18 06:45 MCHC 30.0 g/dl (31.0-37.0) L 07/16/18 06:45 RDW 17.1 % (11.5-14.5) H 07/16/18 06:45 Plt Count 282 10^3/uL (120.0-450.0) 07/16/18 06:45 MPV 9.6 fl (7.0-11.0) 07/16/18 06:45 Neut % (Auto) 77.7 % (50.0-68.0) H 07/15/18 07:00 Lymph % (Auto) 15.3 % (22.0-35.0) L 07/15/18 07:00 [place] % (Auto) 6.8 % (1.0-6.0) H 07/15/18 07:00 Eos % (Auto) 0.1 % (1.5-5.0) L 07/15/18 07:00 Baso % (Auto) 0.1 % (0.0-3.0) 07/15/18 07:00 Lymph # (Auto) 1.3 (1.2-3.4) 07/15/18 07:00 [place] # (Auto) 0.6 (0.1-0.6) 07/15/18 07:00 Eos # (Auto) 0.0 (0.0-0.7) 07/15/18 07:00 Baso # (Auto) 0.01 K/mm3 (0.0-2.0) 07/15/18 07:00 Absolute Neuts (auto) 6.74 (1.4-6.5) H 07/15/18 07:00 Neutrophils % (Manual) 91 % (50.0-70.0) H 07/13/18 07:20 Band Neutrophils % 2 % (0-2) 07/13/18 07:20 Lymphocytes % (Manual) 4 % (22.0-35.0) L 07/13/18 07:20 Monocytes % (Manual) 3 % (1.0-6.0) 07/13/18 07:20 Platelet Evaluation Normal (NORMAL) 07/13/18 07:20 Polychromasia Slight 07/13/18 07:20 Hypochromasia 1+ 07/13/18 07:20 Poikilocytosis (manual Slight 07/13/18 07:20 Anisocytosis (manual) 1+ 07/13/18 07:20 Microcytosis (manual) 1+ 07/13/18 07:20 pO2 36 mm/Hg (30-55) 07/13/18 10:30 VBG pH 7.31 (7.32-7.43) L 07/13/18 10:30 VBG pCO2 33.0 (40-60) L 07/13/18 10:30 VBG HCO3 16.6 mmol/l (21-28) L 07/13/18 10:30 VBG Total CO2 17.6 mmol.L (22-28) L 07/13/18 10:30 VBG O2 Sat (Calc) 74.1 % (40-65) H 07/13/18 10:30 VBG Base Excess -8.6 mmol/L (0.0-2.0) L 07/13/18 10:30 VBG Potassium 3.9 mmol/L (3.6-5.2) 07/13/18 10:30 Sodium 134.0 mmol/L (132-148) 07/13/18 10:30 Chloride 106.0 mmol/L (98-107) 07/13/18 10:30 Glucose 299 mg/dl (65-105) H 07/13/18 10:30 Lactate 1.2 mmol/L (0.7-2.1) 07/13/18 10:30 FiO2 21.0 % 07/13/18 10:30 Crit Value Called To Ponce barr 07/12/18 21:50 Crit Value Called By Mitchell 07/12/18 21:50 Blood Gas Notified Time 215707/12/18 21:50 Sodium 139 mmol/L (132-148) 07/16/18 06:45 Potassium 3.6 mmol/L (3.6-5.0) 07/16/18 06:45 Chloride 103 mmol/L (98-107) 07/16/18 06:45 Carbon Dioxide 30 mmol/L (21-33) 07/16/18 06:45 Anion Gap 10 (10-20) 07/16/18 06:45 BUN 14 mg/dL (7-21) 07/16/18 06:45 Creatinine 0.7 mg/dl (0.7-1.2) 07/16/18 06:45 Est GFR ( Amer) > 60 07/16/18 06:45 Est GFR (Non-Af Amer) > 60 07/16/18 06:45 POC Glucose (mg/dL) 209 mg/dL (65-110) H 07/16/18 16:15 Random Glucose 201 mg/dL (70-110) H 07/16/18 06:45 Lactic Acid 1.0 mmol/L (0.7-2.1) 07/13/18 00:35 Calcium 8.4 mg/dL (8.4-10.5) 07/16/18 06:45 Phosphorus 2.4 mg/dL (2.5-4.5) L 07/12/18 21:50 Magnesium 1.6 mg/dL (1.7-2.2) L 07/12/18 21:50 Total Bilirubin 0.3 mg/dL (0.2-1.3) 07/16/18 06:45 AST 30 U/L (14-36) 07/16/18 06:45 ALT 27 U/L (7-56) 07/16/18 06:45 Alkaline Phosphatase 63 U/L (38-126) 07/16/18 06:45 Troponin I 0.02 ng/mL D 07/13/18 07:20 Total Protein 5.8 g/dL (5.8-8.3) 07/16/18 06:45 Albumin 2.9 g/dL (3.0-4.8) L 07/16/18 06:45 Globulin 2.9 gm/dL 07/16/18 06:45 Albumin/Globulin Ratio 1.0 (1.1-1.8) L 07/16/18 06:45 Amylase < 30 U/L (35-125) L 07/13/18 07:20 Lipase 66 U/L (23-300) 07/13/18 07:20 Procalcitonin 23.97 NG/ML (0.19-0.49) H 07/13/18 07:20 Venous Blood Potassium 3.9 mmol/L (3.6-5.2) 07/13/18 10:30 Urine Color Yellow (YELLOW) 07/12/18 19:10 Urine Appearance Slight-cloudy (CLEAR) 07/12/18 19:10 Urine pH 5.5 (4.7-8.0) 07/12/18 19:10 Ur Specific [place] >= 1.030 (1.005-1.035) 07/12/18 19:10 Urine Protein 100 mg/dL (<30 mg/dL) H 07/12/18 19:10 Urine Glucose (UA) Negative mg/dL (NEGATIVE) 07/12/18 19:10 Urine Ketones 15 mg/dL (NEGATIVE) H 07/12/18 19:10 Urine Blood Moderate (NEGATIVE) H 07/12/18 19:10 Urine Nitrate Negative (NEGATIVE) 07/12/18 19:10 Urine Bilirubin Moderate (NEGATIVE) H 07/12/18 19:10 Urine Urobilinogen 0.2 E.U./dL (<1 E.U./dL) 07/12/18 19:10 Ur Leukocyte Esterase Small Néstor/uL (NEGATIVE) H 07/12/18 19:10 Urine RBC 2 - 5 /hpf (0-2) H 07/12/18 19:10 Urine WBC 1 - 3 /hpf (0-6) 07/12/18 19:10 Ur Epithelial Cells 0 - 2 /hpf (0-5) 07/12/18 19:10 Urine Bacteria Few /hpf (NONE) 07/12/18 19:10 Urine Other Mucus /hpf 07/12/18 19:10 HIV 1&2 Ag/Ab, 4th Gen Nonreactive (Nonreactive) 07/14/18 06:00 Attending/Attestation - Attestation I have personally seen and examined this patient.: Yes I have fully participated in the care of the patient.: Yes I have reviewed all pertinent clinical information, including history, physical exam and plan: Yes Notes (Text): 07/17/18 13:45 Medical record note made by the resident after discussion with my direction and input after the patient was personally seen and examined by me. I have reviewed the chart and agree that the record accurately reflects by personal performance of the history, physical exam, data review, and medical decision-making, in the course for the patient. I have also personally directed the plan of care. 58 year old female with past medical history of gastric bypass and gastric lap- band surgery, kidney stones s/p recent ureteral stent, UTI, diabetes and hypertension who presented with complaint of fever, chills and right flank pain; found to have sepsis,septic shock secondary to complicated UTI/pyelonephritis. CT abd/pelvis was reviewed with showed persistent perinephric stranding of right kidney. She was started on aggressive IV hydration, pressors and iv antibiotics.She was also no stress dose of steroid . Patient responded well, blood pressure improved and she was transferred to medical floor.IV steroid was discontinued.Urine cultures and stent catheter tip grew Enterococus fecalis. Patient antibiotics has been switched to oral Linezolid . She will be discharged home and will follow up with PCP and Urology. Management plan was discussed in detail with patient. Education was provided.
--- NOTE | 2018-07-16 15:22 | PCM.URO ---
Urology Progress Note - Objective Lab Studies: Reviewed (pt improving out pt management full notes all dictated) Lab Results Last 24 Hours: Laboratory Results - last 24 hr 07/14/18 07/15/18 07/15/18 06:00 11:53 16:03 WBC RBC Hgb Hct MCV MCH MCHC RDW Plt Count MPV Sodium Potassium Chloride Carbon Dioxide Anion Gap BUN Creatinine Est GFR ( Amer) Est GFR (Non-Af Amer) POC Glucose (mg/dL) 282 H 286 H Random Glucose Calcium Total Bilirubin AST ALT Alkaline Phosphatase Total Protein Albumin Globulin Albumin/Globulin Ratio HIV 1&2 Ag/Ab, 4th Gen Nonreactive 07/15/18 07/16/18 07/16/18 20:57 06:38 06:45 WBC 6.8 D RBC 3.76 Hgb 8.2 L Hct 27.3 L MCV 72.6 L MCH 21.8 L MCHC 30.0 L RDW 17.1 H Plt Count 282 MPV 9.6 Sodium Potassium Chloride Carbon Dioxide Anion Gap BUN Creatinine Est GFR ( Amer) Est GFR (Non-Af Amer) POC Glucose (mg/dL) 296 H 216 H Random Glucose Calcium Total Bilirubin AST ALT Alkaline Phosphatase Total Protein Albumin Globulin Albumin/Globulin Ratio HIV 1&2 Ag/Ab, 4th Gen 07/16/18 07/16/18 07/16/18 06:45 10:23 11:37 WBC RBC Hgb Hct MCV MCH MCHC RDW Plt Count MPV Sodium 139 Potassium 3.6 Chloride 103 Carbon Dioxide 30 Anion Gap 10 BUN 14 Creatinine 0.7 Est GFR ( Amer) > 60 Est GFR (Non-Af Amer) > 60 POC Glucose (mg/dL) 251 H 255 H Random Glucose 201 H Calcium 8.4 Total Bilirubin 0.3 AST 30 ALT 27 Alkaline Phosphatase 63 Total Protein 5.8 Albumin 2.9 L Globulin 2.9 Albumin/Globulin Ratio 1.0 L HIV 1&2 Ag/Ab, 4th Gen Intake & Output: Intake & Output 07/15/18 07/16/18 07/16/18 18:59 06:59 18:59 Intake Total 1570 Output Total 2100 200 Balance -530 -200 Intake: IV 350 Left Antecubital 350 Oral 1220 Output: Urine 2100 200 Urethral (Fair) 2100 200 Other: # Voids Urethral (Fair) 1 # Bowel Movements 0 Vital Signs: Vital Signs - 24 hr 07/15/18 07/16/18 23:23 07:30 Temperature 99 F 98.2 F Pulse Rate 77 83 Respiratory 18 20 Rate Blood Pressure 145/77 122/67 O2 Sat by Pulse 97 97 Oximetry
--- NOTE | 2018-07-16 22:57 | PN ---
DATE: 07/16/2018 SUBJECTIVE: The patient is in room 571, bed 2. The patient is seen early this morning. She is awake and alert. She states she is doing great and she discharged. OBJECTIVE: VITAL SIGNS: Temperature is 98, blood pressure is 120/60, and respiratory rate of 18. HEENT: Unremarkable. NECK: Supple. LUNGS: Have decreased breath sounds. HEART: Normal S1 and S2. ABDOMEN: Soft and nontender. LABORATORY DATA: Reveals a white count of 6.8 and hemoglobin of 8. Chemistries reveals a BUN of 14, creatinine of 0.7 and procalcitonin is noted. Urinalysis is noted and serology is noted. Microbiology reveals Enterococcus faecalis. ASSESSMENT AND PLAN: This is a 58-year-old female who is ALLERGIC TO PENICILLIN who received ceftriaxone without any issues currently, history of diabetes, hypertension, admitted with sepsis with ureteral stones and stents. Stent was removed and Enterococcus, the catheter tip Enterococcus from the urine and the patient to complete the p.o. Zyvox both source did show Enterococcus faecalis, sensitive to Zyvox to complete 10 days as discussed earlier this morning with the patient. Pete Bonilla MD
== END 2018-07-16 17:22 | disposition home or self-care (01) | DRG 698 ==
LOC: ED 12:00 → ERH 13:47 → 5RNO 16:01 → ICU 07-13 02:56 → CCU 07-13 02:57 → 5RSO 07-14 14:52
PROVIDERS: ADMIT Internal Medicine; ATTEND Internal Medicine
PROC: 0TP97DZ Removal of Intraluminal Device from Ureter, Via Natural or Artificial Opening (ICD-10-PCS; principal; 2018-07-12)
PROC: 0T9B70Z Drainage of Bladder with Drainage Device, Via Natural or Artificial Opening (ICD-10-PCS; 2018-07-12)
PROC: 05HM33Z Insertion of Infusion Device into Right Internal Jugular Vein, Percutaneous Approach (ICD-10-PCS; 2018-07-13)
PROC: B543ZZA Ultrasonography of Right Jugular Veins, Guidance (ICD-10-PCS; 2018-07-13)
PROC: 3E043XZ Introduction of Vasopressor into Central Vein, Percutaneous Approach (ICD-10-PCS; 2018-07-13)
PROC: 3E03328 Introduction of Oxazolidinones into Peripheral Vein, Percutaneous Approach (ICD-10-PCS; 2018-07-14)
DX: T83.592A Infection and inflammatory reaction due to indwelling ureteral stent, initial encounter (principal); A41.9 Sepsis, unspecified organism; R65.21 Severe sepsis with septic shock; N13.6 Pyonephrosis; N17.9 Acute kidney failure, unspecified; N20.2 Calculus of kidney with calculus of ureter; E87.2 Acidosis; I12.9 Hypertensive chronic kidney disease with stage 1 through stage 4 chronic kidney disease, or unspecified chronic kidney disease; E11.22 Type 2 diabetes mellitus with diabetic chronic kidney disease; N18.9 Chronic kidney disease, unspecified; D50.9 Iron deficiency anemia, unspecified; B95.2 Enterococcus as the cause of diseases classified elsewhere; E78.5 Hyperlipidemia, unspecified; Y83.1 Surgical operation with implant of artificial internal device as the cause of abnormal reaction of the patient, or of later complication, without mention of misadventure at the time of the procedure; Z87.442 Personal history of urinary calculi; Z79.899 Other long term (current) drug therapy; Z79.84 Long term (current) use of oral hypoglycemic drugs; Z87.440 Personal history of urinary (tract) infections; Z88.0 Allergy status to penicillin; Z98.84 Bariatric surgery status